=== PATIENT | male | born 1960 | race African-American/Black ===

== ENCOUNTER 2022-06-21 01:07 | Emergency (ER) | payer MEDICARE, MEDICAID, SELFPAY ==
[2022-06-21 01:24] VITALS: BP 118/61; PULSE 86; RESP 16; TEMP 36.7; O2SAT 97; BMI 31.1
--- OUTSIDE RECORDS SUMMARY | 2022-06-21 01:38 | XMS_ITS | Continuity of Care Document ---
:1960 Author Organization [facility] nter Address [address] [place] [address]- Care Team Providers Name Role Phone Tip Martinez MD Primary Care Physician [facility] [facility] [place](s): 10/28/20 - 12/03/[address] [address] Attending Physician: Wicho LANE ([place]) , Joe Lima Admitting Physician: Wicho LANE ([place]) , Joe Lima Referring Physician: Wicho LANE ([place]) , Joe Lima Allergies, Adverse Reactions, Alerts Substance Reaction Severity Status NKA Active Medications Aspirin = 325 mg, By Mouth, Daily, 0 Refills, Maintenance, 07/17/13 16:32:48 Start Date: 07/17/13 Status: Orderedfluoxetine 20 mg oral capsule 1 capsule = 20 mg, By Mouth, Daily, # 30 capsule, 0 Refills, Maintenance, 07/19/13 11:02:25, Capsule Start Date: 07/19/13 Status: OrderedLantus Inj = 50 units, Subcutaneous Infusion, Daily, 0 Refills, Maintenance, 01/01/19 3:03:43 EDT Start Date: 01/01/19 Status: OrderedMethadone = 45 mg, By Mouth, Daily, 0 Refills, Maintenance, 01/01/19 15:40:12 EDT, Partial fill upon patient request Start Date: 01/01/19 Status: OrderedMetoprolol XL Tablet 100 mg, By Mouth, Daily, Maintenance, 07/17/13 16:31:44 Start Date: 07/17/13 Status: OrderedOne Touch Ultra 2 Glucose Meter See Instructions, # 1 each, Maintenance, use as directed for Type 2 Diabetes Mellitus. Dx:250.00. Test 1x daily or as directed., 10/18/13 14:07:36, Compound Start Date: 10/18/13 Stop Date: 11/17/13 Status: OrderedOne Touch Ultra Test Strips See Instructions, # 200 each, Refills 5, Tot. Refills 5, Maintenance, use as directed for Type 2 Diabetes Mellitus controlled. DX: 250.00. Test 1x daily PRN, 10/18/13 14:43:27, Compound Start Date: 10/18/13 Stop Date: 04/16/14 Status: OrderedOne Touch UltraSoft Lancets See Instructions, # 200 each, Refills 5, Tot. Refills 5, Maintenance, use as directed for Type 2 Diabetes Mellitus controlled Dx: 250.00. Test 1x daily PRN, 10/18/13 14:45:16, Compound Start Date: 10/18/13 Stop Date: 04/16/14 Status: OrderedSEROquel 100 mg oral tablet 100 mg, 1, tablet, By Mouth, 2 times a day, Refills 0, Maintenance, 01/01/19 3:02:51 EDT Start Date: 01/01/19 Status: Orderedtrazodone 50 mg oral tablet 1 tablet = 50 mg, By Mouth, Daily at bedtime, PRN Sleep, may repeat x 1 after one hour, # 30 tablet,0 Refills, Maintenance, 07/19/13 11:02:43, Tablet Start Date: 07/19/13 Status: Ordered
--- NOTE | 2022-06-21 02:00 | ED.EAR ---
HPI - Ear Problem General Chief complaint: Ear Problems Stated complaint: L Ear Pain Time Seen by Provider: 06/21/22 01:59 Source: patient Mode of arrival: ambulatory Limitations: no limitations History of Present Illness HPI Narrative: 59-year-old male who presents emergency department for evaluation of left ear pain. He states the pain came on gradually this afternoon at around 14:00 and got progressively worse. The patient states he has had a cold for the past 2 days with symptoms including sore throat and a nonproductive cough. He denied fever or chills. He states that the pain increased in intensity to the point where it is 10/10 therefore came to emergency department for evaluation. Patient denies any decreased hearing. Denies any numbness or swelling of his face. Patient states he does not usually get your aches for your pain. Related Data Previous Rx's Medication Instructions Recorded acetaminophen 500 mg tablet 1,000 mg PO Q6H PRN fever or pain 06/21/22 (Tylenol Extra Strength) #20 tabs amoxicillin 500 mg capsule 1,000 mg PO BID 10 days #40 caps 06/21/22 ibuprofen 600 mg tablet 600 mg PO Q6H PRN pain #30 tabs 06/21/22 Allergies Allergy/AdvReac Type Severity Reaction Status Date / Time No Known Allergies Allergy Verified 06/21/22 01:26 Review of Systems Review of Systems: Yes all other systems are reviewed and are negative [facility] Past Medical History [facility] Narrative: Past medical history: Diabetes mellitus, hypertension, hyperlipidemia. Social history: The patient smokes 1 pack of cigarettes per day times many years. He states that he drinks alcohol once or twice a week. He states that he will drink 2-3 beers and 5 nips of alcohol. Social History Social History Advance Directives: No Advance Directives Information Provided: No Physical Exam Vital Signs: Vital Signs: Last Vital Signs Temp 98.0 F 06/21/22 01:24 Pulse 86 06/21/22 01:24 Resp 16 06/21/22 01:24 BP 118/61 06/21/22 01:24 Pulse Ox 97 06/21/22 01:24 O2 Del Method 06/21/22 01:24 BMI result Body Mass Index 31.1 Const: Other: Awake, alert, male patient, he appears to be in distress secondary to his your pain HEENT: Other: His head is normal cephalic atraumatic, pupils were equal round reactive light, sclera contact however normal, mouth revealed moist membranes. Patient's external ears appear to be normal, has no tenderness with palpation of his external auditory canal. His right tympanic membrane is normal his left tympanic membrane is erythematous with loss of landmarks. Neck: Other: Supple, no adenopathy Medical Decision Making Medical Decision Making MDM Narrative: 61-year-old male who presents emergency department for evaluation of left ear pain which began yesterday at 14:00 hours, the pain came on gradually and is now severe and is 10/10. He has had no decreased hearing. He did have cold-like symptoms including a cough and sore throat x2 days. Patient's vital signs were normal. Physical examination did reveal evidence for left otitis media. Patient will be treated with amoxicillin 1000 mg twice a day for 10 days, ibuprofen 600 mg every 6 hours as needed for pain and Tylenol 1000 mg every 6 hours as needed for pain Differential Diagnosis Otitis media, mastoiditis, otitis externa Prescription Management I considered prescription management with: Pain Medication and Antibiotic Chronic Conditions Patient?s care impacted by: Diabetes and Hypertension Discharge Plan Discharge Clinical Impression: Otitis media Qualifiers: Chronicity: acute Laterality: left Instructions: Ear Infection (ED) Additional Instructions: Your left ear is infected Take ibuprofen 6 mg pills, 1 pills every 6 hours as needed for pain or for. Take Tylenol (acetaminophen) 500 mg pills, 2 pills every 6 hours as needed for pain morphine. Take amoxicillin 500 mg pills, 2 pills(1000 mg) every 12 hours times 10 days Follow-up with your doctor in 2 days. Please return to the emergency department if your symptoms get worse or if you develop any symptoms that are concerning to you. Prescriptions: New amoxicillin 500 mg capsule 1,000 mg PO BID 10 Days Qty: 40 0RF acetaminophen [Tylenol Extra Strength] 500 mg tablet 1,000 mg PO Q6H PRN (Reason: fever or pain) Qty: 20 0RF ibuprofen 600 mg tablet 600 mg PO Q6H PRN (Reason: pain) Qty: 30 0RF
[2022-06-21] MEDS: Amoxicillin 500 MG CAPSULE 1000 MG PO (02:44)
[2022-06-21] MEDS: Ibuprofen 600 MG TABLET PO (02:44)
[2022-06-21] MEDS: Acetaminophen 325 MG TABLET 975 MG PO (02:44)
== END 2022-06-21 02:49 | disposition home or self-care (01) ==
PROVIDERS: Emergency Provider Emergency Medicine Emergency Medical Services
DX: H66.92 Otitis media, unspecified, left ear (principal); Z79.899 Other long term (current) drug therapy
CPT/HCPCS: 99283

== ENCOUNTER 2024-04-01 14:45 | Inpatient (IN) | payer MEDICARE, MEDICAID, SELFPAY ==
[2024-04-01] VITALS (9 sets, daily range): BP systolic 116–144; BP diastolic 70–86; PULSE 94–133; RESP 16–20; TEMP 36.1–36.8; O2SAT 93–99; BMI 29.9; BMI 31.3; BMI 30.2
--- NOTE | ~2024-04-01 | CT_ITS ---
EXAMINATION: CT OF THE THORAX, ABDOMEN, AND PELVIS, WITHOUT CONTRAST CLINICAL INFORMATION: Cough, vomiting, abnormal chest x-ray COMPARISON: None TECHNIQUE: Multiple axial images were obtained through the chest, abdomen, and pelvis without contrast. Images were evaluated on independent dedicated 3-D workstation and 3-D images were reconstructed with concurrent radiologist supervision and subsequently interpreted. This CT examination was performed using dose optimization techniques as appropriate, variously including the following: *Automated exposure control *Adjustment of mA and/or kV according to patient size (this includes techniques or standardized protocols for targeted exams where dose is matched to indication/reason for exam; i.e. extremities or head) *Use of iterative reconstruction technique DLP: 799 mGy-cm FINDINGS: THORAX: Thyroid Gland: Heterogeneous. Mediastinum: Large soft tissue mass within the anterior mediastinum arising from the inferior aspect of the right thyroid gland measuring 2.3 x 3.6 x 4.2 cm. No pathologic lymphadenopathy. Patulous esophagus with circumferential thickening of the mid to distal esophagus. Cardiovascular: Heart: Normal in size. Moderate coronary artery calcifications. No aortic aneursym. The great vessels of the thorax are normal in course. Airways: The trachea and central bronchi are normal. Lungs: Postsurgical changes of right upper lobectomy. Chain sutures are seen along the hilum and right middle lobe with associated scarring. No prior studies are available for comparison. Right middle lobe spiculated nodule 4 mm Pleura: No pleural effusion. No pneumothorax. ABDOMEN/PELVIS: Liver: Decreased attenuation of the hepatic parenchyma in keeping with hepatic steatosis. Gallbladder: Noninflamed. Biliary System: No intrahepatic or extrahepatic biliary dilation. Pancreas: Homogeneous in attenuation. Spleen: Normal in size. Genitourinary: Bilateral kidneys demonstrate symmetric enhancement. No perinephric fluid collection. No renal calculi. No hydroureteronephrosis. Adrenal Glands: Unremarkable. Reproductive: Prostate present. Gastrointestinal: The visualized alimentary tract is normal in course. Partial right colectomy. Tubular structure arising from the surgical site of the right partial colectomy. No evidence of obstruction. Peritoneum: No pneumoperitoneum. No intra-abdominal fluid collection. Vasculature: The abdominal aorta is normal in course and caliber. Lymph Nodes: No pathologically enlarged abdominal or pelvic lymph nodes. SOFT TISSUES/MUSCULOSKELETAL: Large Schmorl's node along the inferior endplate of T6 vertebral body with associated disc calcification. Degenerative changes at L5-S1. No acute fractures or suspicious osseous lesions. Subchondral cystic changes involving bilateral hips consistent with osteoarthritis. CT/CT abdomen pelvis wo IV con IMPRESSION: CHEST: Post surgical changes of right upper lobectomy with scarring along the resection margin. There is pleural-based scarring along the right middle lobe chain sutures, which appear smooth. However, prior studies are not available for comparison and recurrence cannot be excluded. In addition, there is a mildly spiculated 4 mm nodule in the right middle lobe. If there is concern for malignancy and recurrence, recommend PET/CT. Anterior mediastinal mass measuring 2.3 x 3.6 x 4.2 cm arising from the right thyroid gland. No mediastinal lymphadenopathy. ABDOMEN/PELVIS: Hepatic steatosis. Partial right colectomy with partially calcified tubular structure arising from the surgical site. This is of unclear etiology. Correlate with prior operative report. Fleischner guidelines were followed. Electronically signed by: Shahzad Shultz DO 04/01/2024 05:32 PM EDT
--- NOTE | ~2024-04-01 | XR_ITS ---
EXAMINATION: XR CHEST 2 VIEWS CLINICAL INFORMATION: cough, sob COMPARISON: No prior chest x-ray available in our system for comparison at the time of this dictation. TECHNIQUE: XR CHEST 2 VIEWS, 2 Views Lungs and Giovanna: Prominent giovanna bilaterally, subtle right perihilar opacity, cannot rule out underlying infiltrate or adenopathy. Pleura: Normal. Costophrenic angles are sharp. No pneumothorax. Heart: The heart is normal in size. Mediastinum: Widened upper mediastinum, thickened right paratracheal stripe although could be vascular cannot rule out adenopathy.. Bones: Skeletal structures included are normal for patient's age. XR/XR chest 2V IMPRESSION: 1. Prominent giovanna bilaterally, subtle right perihilar opacity, cannot rule out underlying infiltrate , pathology or adenopathy. 2. Widened right paratracheal stripe, thickened right paratracheal stripe could be vascular cannot rule out adenopathy. 3. Recommend correlation with other studies might have been present in other institution otherwise would recommend follow-up CT scan. Electronically signed by: Ashley Valdivia MD 04/01/2024 04:11 PM EDT
--- NOTE | 2024-04-01 14:48 | ED_ITS ---
HPI - Nausea/Vomiting/Diarrhea General Chief complaint: Abdominal Pain Stated complaint: vomiting Time Seen by Provider: 04/01/24 16:01 Source: patient, RN notes reviewed and old records reviewed Mode of arrival: ambulatory Limitations: no limitations History of Present Illness ED Provider: Malu SELF Narrative: 63-year-old male past medical history significant for diabetes, chronic kidney disease, hypertension presents for evaluation abdominal pain and vomiting. Patient reports he has been vomiting for the last 4 days and unable to tolerate any p.o. intake. He reports that his entire abdomen is painful and there is no specific area that is more painful than the rest. His abdomen does not feel distended His pain is a 7/10, constant. He reports a history of a partial colon resection due to a complicated polyp found during a routine colonoscopy He does not have an ostomy He reports that he has been coughing, denies any fevers, chills, shortness of breath Denies any recent travel or sick contacts Associated nausea: Yes Related Data Previous Rx's ?Medication ?Instructions ?Recorded acetaminophen 500 mg tablet 1,000 mg (2 x 500 mg) PO Q6H PRN 06/21/22 (Tylenol Extra Strength) fever or pain #20 tabs amoxicillin 500 mg capsule 1,000 mg (2 x 500 mg) PO BID 10 06/21/22 days #40 caps ibuprofen 600 mg tablet 600 mg PO Q6H PRN pain #30 tabs 06/21/22 Allergies Allergy/AdvReac Type Severity Reaction Status Date / Time No Known Allergies Allergy Verified 04/01/24 14:54 Review of Systems 2 Constitutional: Constitutional: Denies body ache(s), Denies chills, Denies fever(s), Reports malaise and Reports weakness Eyes: Eyes: Denies blurry vision ENT: Denies sore throat Cardiovascular: Cardiovascular: Denies chest pain and Denies dyspnea Respiratory: Respiratory: Reports cough and Denies dyspnea Gastrointestinal: Gastrointestinal: Reports abdominal pain, Denies hematochezia, Reports nausea and Reports vomiting Musculoskeletal: Musculoskeletal: Denies back pain Integumentary/Breasts: Skin/Breast: Denies rash Neurologic: Reports weakness Psychiatric: Psychiatric: Denies anxiety PMFSH Social History Social History Alcohol intake: current Patient Tobacco Use Status: Current everyday Tobacco user Smoked in Last 30 Days: Yes Use of substances other than those prescribed or required for medical reasons: No Advance Directives: No Advance Directives Information Provided: No Do you have a plan to hurt others: No Plan Nutrition Risks: No Nutritional Risk Physical Exam 2 Vital Signs: Vital Signs: Last Vital Signs Temp 97 F 04/01/24 20:00 Pulse 104 H 04/01/24 20:00 Resp 16 04/01/24 20:00 BP 144/80 H 04/01/24 20:00 Pulse Ox 95 04/01/24 20:00 O2 Del Method Room Air 04/01/24 20:00 BMI result Body Mass Index 29.9 Const: General: healthy appearing, comfortable, no acute distress, alert and awake Nutritional Appearance: well nourished Orientation/consciousness: p atient oriented x3 HEENT: Head: Yes normocephalic and Yes atraumatic Eyes: Eyelids: Yes eyelids normal Conjunctivae: conjunctivae normal S clerae: sclerae normal Corneas: corneas normal Pupils: Equal, round and reactive pupils present EOM: EOMs intact bilaterally Neck: Neck: Yes full ROM Resp: Effort & Inspection: normal respiratory effort, able to speak in complete sentences, no audible wheezes and not labored Auscultation: clear to auscultation bilaterally Cardio: Rate: regular rate Rhythm: regular rhythm GI: Inspection: No distended and Yes scar Palpation (GI): Soft to palpation, not firm, Tenderness to palpation present (GI) in the LLQ, in the RLQ, in the LUQ and in the RUQ, no guarding and not rigid Skin: General skin exam: elasticity normal Neuro: General: patient oriented x3 Cranial nerves: Yes Equal, round and reactive pupils present and Yes Bilaterally intact EOM present Cognition (Neuro): normal cognition Course Course Course Narrative: This is a Rapid Medical Examination (RME) performed by Sydney Saldivar PA-C in triage. Full HPI, ROS, assessment and treatment plan per primary provider in the Main ED. 63 yo male here for N/V and central abdominal pain x4 days. also reports cough with shortness of breath. endorses etoh consumptions approx 3 days/ week, 4-5 nips per day. last consumed etoh 4 days ago. denies ilicit substance use. denies fever, chills, chest pain, palpitations. no known sick contacts. + patient tachy to 130's. Plan: labs, viral serology, cxr, ekg Reevaluation(s) Reevaluation #1: I spoke to Dr Chen who reviewed the case and initially recommended sodium bicarbonate in D5 normal saline however change recommendations to D5 normal saline bolus and then continue with fluids at 150 cc an hour as well as an insulin drip. He feels the patient may have euglycemic DKA related to Jardiance use. Time: 18:42 Reevaluation #2: Discussed with the ICU, Dr. Russell as well as the ICU in-house ABDIEL Garcia who evaluated the patient. He recommended insulin drip as well as D5 LR which was ordered. I placed a 2nd IV and the patient using ultrasound guidance. I placed a 2-1/2 inch 20 gauge left upper arm peripheral IV. There was good blood return and the line flushed well Time: 19:44 Medications Administered Generic Name Dose Route Start Last Admin Trade Name Freq PRN Reason Stop Dose Admin Heparin Sodium (Porcine) 5,000 unit 04/01/24 20:00 04/01/24 20:31 Heparin Sodium,Porcine 5,000 Unit/Ml Vial SUBCUT 5,000 unit Q12H TAI Administration Dextrose/Lactated Ringer's 1,000 mls @ 150 mls/hr 04/01/24 19:45 04/01/24 19:43 D5lr IVCONT 150 mls/hr .Q6H40M TAI Administration Insulin Human Regular 100 unit in 100 mls @ 8 mls/hr 04/01/24 19:45 04/01/24 20:20 Myxredlin IVCONT 8 unit/hr .[id number] TAI 8 mls/hr Administration Protocol 8 UNIT/HR Ondansetron HCl 4 mg 04/01/24 19:39 04/01/24 20:30 Ondansetron Hcl 4 Mg/2 Ml Vial IVPUSH 4 mg Q8H PRN Administration Nausea and Vomiting Discontinued Medications Generic Name Dose Route Start Last Admin Trade Name Freq PRN Reason Stop Dose Admin Hydromorphone HCl 1 mg 04/01/24 19:21 04/01/24 19:25 Hydromorphone Hcl 1 Mg/Ml Syringe IVPUSH 04/01/24 19:22 1 mg ONCE ONE Administration Protocol Sodium Chloride 1,000 mls @ 999 mls/hr 04/01/24 16:30 04/01/24 20:01 Ns IV 04/01/24 17:30 Infused .Q1H1M TAI Infusion Dextrose/Sodium Chloride 1,000 mls @ 125 mls/hr 04/01/24 18:45 04/01/24 19:36 D5ns IVCONT Infused .Q8H TAI Infusion Insulin Human Regular 8 unit 04/01/24 19:38 04/01/24 19:55 Insulin Regular, Human 100 Unit/Ml 10 Ml Vial IVPUSH 04/01/24 19:39 8 unit ONCE ONE Administration Morphine Sulfate 4 mg 04/01/24 16:17 04/01/24 16:26 Morphine Sulfate 4 Mg/Ml Cartridge IVPUSH 04/01/24 16:18 4 mg ONCE ONE Administration Protocol Ondansetron HCl 4 mg 04/01/24 16:17 04/01/24 16:26 Ondansetron Hcl 4 Mg/2 Ml Vial IVPUSH 04/01/24 16:18 4 mg ONCE ONE Administration Sodium Bicarbonate 50 meq 04/01/24 19:38 04/01/24 19:54 Sodium Bicarbonate 8.4% 50 Meq/50 Ml Syringe IVPUSH 04/01/24 19:39 50 meq ONCE ONE Administration Medical Decision Making Medical Decision Making [facility] Narrative: 63-year-old male with past medical history as documented above presents for evaluation of vomiting. He was tachycardic to 130, appears quite dry on exam. Will treat with IV fluids. His workup was significant for a bicarb of 7, a VBG was ordered which was a pH of 7.2. This may be related to starvation ketosis related to his significant vomiting and poor oral intake. His glucose is 200, does not appear to be DKA. Sodium, potassium within normal limits. There is no indication for sepsis at this time, the patient is afebrile, he has a mild leukocytosis of 11.2 which is likely related to vomiting. I did order blood cultures and lactic acid as well. The patient's blood pressure has been stable. We will get a CT scan of his abdomen as well as his chest given his abnormal chest x-ray. He denies excessive alcohol abuse Differential Diagnosis Differential Diagnoses: The differential diagnosis associated with the presentation includes Starvation ketosis Dehydration DKA Alcoholic ketoacidosis Sepsis SBO Admission/Observation Consideration of admission/observation: Escalation of care including admission/observation considered Lab Data [facility] Lab Attestation statement: I reviewed the patient's lab results. Mild leukocytosis to 11.2, likely reactive to vomiting. There was no anemia, normal platelet count. Electrolytes are significant for a CO2 of 7. Glucose of 2 or 3 Patient reports a history of chronic kidney disease, his creatinine is 2.0 unclear what his baseline is. 04/01/24 15:05 04/01/24 19:45 Labs: Lab Results 04/01/24 04/01/24 04/01/24 Range/Units 15:05 16:12 16:15 WBC 11.2 H (4.8-10.8) X10*3/uL RBC 4.81 (4.60-5.80) X10*6/uL Hgb 15.8 (14.0-18.0) g/dl Hct 45.4 (42.0-52.0) % MCV 94.4 (80.0-98.0) fL MCH 32.8 (27.0-33.0) pg MCHC 34.8 (31.0-36.0) g/dl RDW 13.8 (11.0-16.0) % Plt Count 224 (160-400) X10*3/uL MPV 9.6 (9.4-12.4) fL Immature Gran % (Auto) 0.4 (0.0-0.4) % Neut % (Auto) 83.3 H (45-73) % Lymph % (Auto) 10.0 L (20-40) % [place] % (Auto) 6.0 (2-11) % Eos % (Auto) 0.0 (0-4) % Baso % (Auto) 0.3 (0-2) % Lymph # (Auto) 1.1 L (1.2-4.9) X10*3/uL [place] # (Auto) 0.7 (0.1-1.2) X10*3/uL Eos # (Auto) 0.0 (0.0-0.4) X10*3/uL Baso # (Auto) 0.0 (0.0-0.2) X10*3/uL Abs Immat Gran (auto) 0.04 H (0.00-0.03) X10*3/uL Absolute Neuts (auto) 9.3 H (2.0-8.3) x10*3/uL Absolute Nucleated RBC 0.000 (0.0-0.012) X10*3/uL Nucleated RBC % (auto) 0.0 (0.0-0.2) /100WBC VBG pH 7.20 L* (7.32-7.43) VBG pCO2 18 mmHg VBG pO2 77 mmHg VBG HCO3 7 L (22-26) mmol/L VBG O2 Saturation 93.0 % VBG Base Excess -18.1 mmol/L Sodium 136 (135-145) mmol/L Potassium 4.4 (3.3-5.1) mmol/L Chloride 101 (96-108) mmol/L Carbon Dioxide 7 L* (22-29) mmol/L Anion Gap 32 H (12-20) BUN 14 (9-16) mg/dL Creatinine 2.00 H (0.5-1.4) mg/dL Estim Creat Clear Calc 40.4 Estimated GFR 34 POC Glucose (60-115) mg/dL Random Glucose 203 H (60-115) mg/dL Lactic Acid 2.0 (0.5-2.0) mmol/L Calcium 10.7 H (8.4-10.2) mg/dL Magnesium 2.0 (1.6-2.6) mg/dL Total Bilirubin 0.4 (0.0-1.0) mg/dL AST 25 (5-37) U/L ALT 26 (0-40) U/L Alkaline Phosphatase 97 (39-117) U/L Total Protein 7.6 (6.5-8.0) g/dL Albumin 4.6 (3.5-5.0) g/dL Lipase 18 (8-78) U/L Beta-Hydroxybutyrate 12.53 H (0.02-0.27) mmol/L Urine Color Urine Appearance Urine pH (5.0-9.0) Ur Specific [place] (1.005-1.025) Urine Protein (Neg-Trace) mg/dL Urine Glucose (UA) (Negative) mg/dL Urine Ketones (Negative) mg/dL Urine Blood (Negative) Urine Nitrite (Negative) Ur Leukocyte Esterase (Negative) Urine RBC (0-2) /HPF Urine WBC (0-5) /HPF Ur Squamous Epith Cells (0-2) /HPF Urine Bacteria (None Seen) Hyaline Casts (0-2) /LPF Urine Opiates Screen (Not Detect) Ur Buprenorphine Scrn (Not Detect) ng/mL Ur Oxycodone Screen (Not Detect) ng/mL Urine Methadone Screen (Not Detect) ng/mL Urine Fentanyl Screen (Not Detect) Ur Barbiturates Screen (Not Detect) Ur Phencyclidine Scrn (Not Detect) Ur Amphetamines Screen (Not Detect) U Benzodiazepines Scrn (Not Detect) Urine Cocaine Screen (Not Detect) U Marijuana (THC) Screen (Not Detect) Ethyl Alcohol < 10 mg/dL Influenza Type A (PCR) NEGATIVE (Negative) Influenza Type B (PCR) NEGATIVE (Negative) RSV RNA Qual (PCR) NEGATIVE (Negative) SARS-CoV-2 RNA (RT-PCR) NEGATIVE (Negative) 04/01/24 04/01/24 Range/Units 18:49 19:30 WBC (4.8-10.8) X10*3/uL RBC (4.60-5.80) X10*6/uL Hgb (14.0-18.0) g/dl Hct (42.0-52.0) % MCV (80.0-98.0) fL MCH (27.0-33.0) pg MCHC (31.0-36.0) g/dl RDW (11.0-16.0) % Plt Count (160-400) X10*3/uL MPV (9.4-12.4) fL Immature Gran % (Auto) (0.0-0.4) % Neut % (Auto) (45-73) % Lymph % (Auto) (20-40) % [place] % (Auto) (2-11) % Eos % (Auto) (0-4) % Baso % (Auto) (0-2) % Lymph # (Auto) (1.2-4.9) X10*3/uL [place] # (Auto) (0.1-1.2) X10*3/uL Eos # (Auto) (0.0-0.4) X10*3/uL Baso # (Auto) (0.0-0.2) X10*3/uL Abs Immat Gran (auto) (0.00-0.03) X10*3/uL Absolute Neuts (auto) (2.0-8.3) x10*3/uL Absolute Nucleated RBC (0.0-0.012) X10*3/uL Nucleated RBC % (auto) (0.0-0.2) /100WBC VBG pH (7.32-7.43) VBG pCO2 mmHg VBG pO2 mmHg VBG HCO3 (22-26) mmol/L VBG O2 Saturation % VBG Base Excess mmol/L Sodium (135-145) mmol/L Potassium (3.3-5.1) mmol/L Chloride (96-108) mmol/L Carbon Dioxide (22-29) mmol/L Anion Gap (12-20) BUN (9-16) mg/dL Creatinine (0.5-1.4) mg/dL Estim Creat Clear Calc Estimated GFR POC Glucose 183 H (60-115) mg/dL Random Glucose (60-115) mg/dL Lactic Acid (0.5-2.0) mmol/L Calcium (8.4-10.2) mg/dL Magnesium (1.6-2.6) mg/dL Total Bilirubin (0.0-1.0) mg/dL AST (5-37) U/L ALT (0-40) U/L Alkaline Phosphatase (39-117) U/L Total Protein (6.5-8.0) g/dL Albumin (3.5-5.0) g/dL Lipase (8-78) U/L Beta-Hydroxybutyrate (0.02-0.27) mmol/L Urine Color Yellow Urine Appearance Clear Urine pH 5.0 (5.0-9.0) Ur Specific [place] 1.020 (1.005-1.025) Urine Protein 30 (1+) H (Neg-Trace) mg/dL Urine Glucose (UA) >=1000 H (Negative) mg/dL Urine Ketones >=160 (Negative) mg/dL Urine Blood Negative (Negative) Urine Nitrite Negative (Negative) Ur Leukocyte Esterase Negative (Negative) Urine RBC 0-2 (0-2) /HPF Urine WBC 0-5 (0-5) /HPF Ur Squamous Epith Cells 0-2 (0-2) /HPF Urine Bacteria None Seen (None Seen) Hyaline Casts 0-2 (0-2) /LPF Urine Opiates Screen POSITIVE H (Not Detect) Ur Buprenorphine Scrn Not Detected (Not Detect) ng/mL Ur Oxycodone Screen Not Detected (Not Detect) ng/mL Urine Methadone Screen Not Detected (Not Detect) ng/mL Urine Fentanyl Screen Not Detected (Not Detect) Ur Barbiturates Screen Not Detected (Not Detect) Ur Phencyclidine Scrn Not Detected (Not Detect) Ur Amphetamines Screen Not Detected (Not Detect) U Benzodiazepines Scrn Not Detected (Not Detect) Urine Cocaine Screen Not Detected (Not Detect) U Marijuana (THC) Screen Not Detected (Not Detect) Ethyl Alcohol mg/dL Influenza Type A (PCR) (Negative) Influenza Type B (PCR) (Negative) RSV RNA Qual (PCR) (Negative) SARS-CoV-2 RNA (RT-PCR) (Negative) Critical Care Time Critical Care Time Critical Care Time: Yes Total Critical Care Time: 45 Attestation: 63-year-old male presents for evaluation of nausea and vomiting. He was found to be in DKA with a pH of 7.20 and a bicarb of 7. The patient was given IV hydration, insulin drip and ultimately required ICU level admission. Discharge Plan Discharge Clinical Impression: Metabolic acidosis, Acute dehydration Patient Disposition: Admitted As Inpatient Interventions: Admission Worksheet (ED) Last Done: 04/01/24 20:19 Discharge Date/Time: 04/01/24 20:19
--- NOTE | 2024-04-01 14:51 | ECG_ITS ---
Test Reason : TACHYCARDIC/SOB Blood Pressure : / mmHG Vent. Rate : 124 BPM Atrial Rate : 124 BPM P-R Int : 122 ms QRS Dur : 078 ms QT Int : 324 ms P-R-T Axes : 058 020 066 degrees QTc Int : 465 ms Sinus tachycardia Nonspecific ST abnormality Abnormal ECG No previous ECGs available Referred By: Katina Saldivar Electronically Signed By:JOSÉ TSE MD
[2024-04-01 15:13] LABS: MANUAL DIFF FLAG NO
[2024-04-01 15:17] LABS: Basophils Percent Auto 0.3 % (0-2); Hematocrit 45.4 % (42.0-52.0); Hemoglobin 15.8 g/dl (14.0-18.0); Imm Gran Abs Auto 0.04 X10*3/uL (0.00-0.03); Imm Gran Pct Auto 0.4 % (0.0-0.4); Lymphocytes Absolute Auto 1.1 X10*3/uL (1.2-4.9); Mean Corpuscular HGB Conc 34.8 g/dl (31.0-36.0); Mean Corpuscular Hemoglobin 32.8 pg (27.0-33.0); Mean Corpuscular Volume 94.4 fL (80.0-98.0); Mean Platelet Volume 9.6 fL (9.4-12.4); Monocytes Absolute Auto 0.7 X10*3/uL (0.1-1.2); Neutrophils Absolute Auto 9.3 x10*3/uL (2.0-8.3); Neutrophils Percent Auto 83.3 % (45-73); Platelet Count 224 X10*3/uL (160-400); Red Blood Count 4.81 X10*6/uL (4.60-5.80); Red Cell Distribution Width 13.8 % (11.0-16.0); White Blood Count 11.2 X10*3/uL (4.8-10.8)
[2024-04-01 15:29] LABS: Ethanol < 10 mg/dL
[2024-04-01 15:51] LABS: Influenza A PCR NEGATIVE (Negative); Influenza B PCR NEGATIVE (Negative); Resp Syncy Virus RNA Qual PCR NEGATIVE (Negative); SARS COV2 PCR INHOUSE NEGATIVE (Negative)
[2024-04-01 15:58] LABS: Alanine Aminotransferase 26 U/L (0-40); Albumin Level 4.6 g/dL (3.5-5.0); Alkaline Phosphatase 97 U/L (39-117); Anion Gap 32 (12-20); Aspartate Amino Transferase 25 U/L (5-37); Bilirubin Total 0.4 mg/dL (0.0-1.0); Blood Urea Nitrogen 14 mg/dL (9-16); Calcium 10.7 mg/dL (8.4-10.2); Carbon Dioxide 7 mmol/L (22-29); Chloride 101 mmol/L (96-108); Creatinine Clr Calc Pharmacy 40.4; Estimated Glomerular Filt Rate 34; Glucose Random 203 mg/dL (60-115); Lipase 18 U/L (8-78); Potassium 4.4 mmol/L (3.3-5.1); Sodium 136 mmol/L (135-145); Total Protein 7.6 g/dL (6.5-8.0)
[2024-04-01 16:21] LABS: Venous Blood Gas Refer to POC result
[2024-04-01 16:22] LABS: VBG Base Excess -18.1 mmol/L; VBG HCO3 7 mmol/L (22-26); VBG pCO2 18 mmHg; VBG pO2 77 mmHg
[2024-04-01] MEDS: 0.9 % Sodium Chloride 1,000 ML 999 ML IV (16:26)
[2024-04-01] MEDS: Morphine Sulfate 4 MG/ML CARTRIDGE IVPUSH (16:26)
[2024-04-01] MEDS: ondansetron HCL 4 MG/2 ML VIAL IVPUSH ×2 (16:26→20:30)
[2024-04-01 17:50] LABS: Beta-Hydroxybutyrate 12.53 mmol/L (0.02-0.27)
[2024-04-01] MEDS: Dextrose 5 % and 0.9 % NaCl 1,000 ML 125 ML IVCONT (18:55)
[2024-04-01 18:56] LABS: Appearance Urine Clear; Color Urine Yellow; Glucose Urine UA >=1000 mg/dL (Negative); Leukocyte Esterase Urine Negative (Negative); Nitrite Urine Negative (Negative); UMIC TRIGGER UACC YES; Urine Blood Negative (Negative); Urine Ketones >=160 mg/dL (Negative); Urine Protein 30 (1+) mg/dL (Neg-Trace)
[2024-04-01 19:05] LABS: Amphetamine Screen Urine Not Detected (Not Detect); Barbiturates, Urine Not Detected (Not Detect); Benzodiazepines Screen Urine Not Detected (Not Detect); Buprenorphine Scr Not Detected (Not Detect); Cannabinoid Screen Urine Not Detected (Not Detect); Cocaine Screen Urine Not Detected (Not Detect); Fentanyl, urine Not Detected (Not Detect); Methadone Screen, Urine Not Detected (Not Detect); Opiate Screen Urine POSITIVE (Not Detect); Oxycodone Screen Urine Not Detected (Not Detect); Phencyclidine Screen Urine Not Detected (Not Detect)
[2024-04-01 19:08] LABS: Bacteria Urine None Seen (None Seen); Hyaline Casts Urine 0-2 /LPF (0-2); RBC Urine 0-2 /HPF (0-2); Squamous Epithelial Cell Urine 0-2 /HPF (0-2); WBC Urine 0-5 /HPF (0-5)
[2024-04-01] MEDS: HYDROmorphone HCl 1 MG/ML SYRINGE IVPUSH (19:25)
[2024-04-01 19:33] LABS: Glucose, Whole Blood 183 mg/dL (60-115)
--- NOTE | 2024-04-01 19:34 | PC.NURSE ---
this rn assumed care of pt, pt noted to have insulin drip ordered, attempted IV placement, unable to obtain. Gonzalez MEADOWS at bedside placing ultrasound guided IV. pt medicated per aug for 10/10 body pain.
[2024-04-01] MEDS: Dextrose 5 % and Lactated Ring 1,000 ML 150 ML IVCONT (19:43)
--- NOTE | 2024-04-01 19:44 | P.HPCC_ITS ---
History of Present Illness Date of Service: 04/01/24 <ABDIEL Rossi - Last Filed: 04/02/24 03:28> Attending physician on admission: Kevin Damon <ABDIEL Rossi - Last Filed: 04/02/24 03:28> Chief Complaint: DKA <ABDIEL Rossi - Last Filed: 04/02/24 03:28> HPI: ?63-year-old male with underlying history of coronary artery disease status post stent 25 years ago, diabetes (for which he is on Lantus, NovoLog sliding scale and Jardiance), chronic kidney disease, hypertension, partial colectomy post complicated colonoscopy, smoker; who presented to the ER with complaints of nausea, vomiting for the past 4 days. ?Patient denies diarrhea, he has not had a bowel movement in almost 1 week. ?Patient complained of abdominal discomfort rated 7/10 in an intermittent manner, dull, at times becoming constant with the above associated symptoms in addition to some chills but no actual fever, some cough without any sputum production, no shortness of breath; denies chest pain, arm pr jaw pain. Patient is normotensive, his workup reveal a white count of 11.2, H and H of 15.8 and 45.4 respectively, platelets 224. Venous blood gas pH 7.2, pCO2 18, PO2 77, bicarb 7.? Sodium 136, potassium 4.4, chloride 101, carbon dioxide 7, anion gap 32, BUN 14, creatinine 2.0, random glucose 203, calcium 10.7, beta hydroxybutyrate acid 12.5.? Patient was given IV fluids and morphine but he was not given insulin. ?Urine tox screen was positive for opioids because he had morphine in the ER otherwise negative and alcohol level was not detectable.? His chest x-ray showed prominent gila bilaterally with a saddle right perihilar opacity and widened right paratracheal stripe.? Follow-up CT showed incidental right thyroid gland associated mass in the anterior mediastinum as well as a 4 mm spiculated right middle lobe nodule. Given the degree of acidosis and uncertainty of whether or not the patient was in DKA we are consulted to see the patient, after evaluating the patient, it is eminent that he is in DKA, the patient will be admitted to the ICU.? I asked the ER kindly to start him on insulin and made recommendations on dosages. <ABDIEL Rossi - Last Filed: 04/02/24 03:28> Review of Systems 2 Review of Systems: Review of systems: As above, otherwise the patient denies any prior history of strokes, cold intolerance, migraine headaches, head trauma, no eyes, ears or nose problems, no problems swallowing or with phonation, no thyroid disease, denies sputum production, pneumonia, bronchitis, COPD or emphysema, diarrhea, abdominal surgeries, melena, hematochezia, hematemesis, hematuria, kidney stones, liver problems, immunocompromise state of any kind, no history of DVT or PE, leg edema, fractures or extremity surgeries all other review of systems were reviewed and they were all negative. <ABDIEL Rossi - Last Filed: 04/02/24 03:28> [facility] Past Medical History Medical History: Medical History (Updated 04/02/24 @ 00:59 by Marina Riggins, RN) Chronic kidney disease (CKD) Hypertension Coronary artery disease Diabetes <ABDIEL Rossi - Last Filed: 04/02/24 03:28> Surgical History Surgical History: Surgical History (Updated 04/02/24 @ 00:59 by Marina Riggins, RN) History of partial colectomy <ABDIEL Rossi - Last Filed: 04/02/24 03:28> Social History Social History: Social History Household Members: None Housing: House Do you presently have visiting nurse or other home services: No Alcohol intake: current Patient Tobacco Use Status: Current everyday Tobacco user Tobacco use type: Cigarette Cigarettes Per Day: 10 Smoked in Last 30 Days: Yes Patient Interested in Nicotine Replacement: No Use of substances other than those prescribed or required for medical reasons: No Currently Displaying Signs/Symptoms of Drug Intoxication Withdrawal: No Have you been hit, kicked, punched, or otherwise hurt by someone within the past year? If so, by whom?: No Is there a partner from a previous relationship who is making you feel unsafe now?: No Are you made to feel afraid or neglected: No Advance Directives: No Advance Directives Information Provided: No Do you have a plan to hurt others: No Plan Recently lost weight without trying: No Nutrition Risks: No Nutritional Risk Poor oral hygiene: No <ABDIEL Rossi Last Filed: 04/02/24 03:28> Meds Allergies/Adverse reactions: Allergies Allergy/AdvReac Type Severity Reaction Status Date / Time No Known Allergies Allergy Verified 04/01/24 14:54 <ABDIEL Rossi - Last Filed: 04/02/24 03:28> Active Medications: Current Medications Acetaminophen (Acetaminophen 325 Mg Tablet) 650 mg PO Q6H PRN PRN Reason: Pain, Moderate(Pain Scale 4-6) Heparin Sodium (Porcine) (Heparin Sodium,Porcine 5,000 Unit/Ml Vial) 5,000 unit SUBCUT Q12H TAI Dextrose/Sodium Chloride (D5ns) 1,000 mls @ 125 mls/hr IVCONT .Q8H TAI Last Infusion: 04/01/24 19:36 Dose: Infused Dextrose/Lactated Ringer's (D5lr) 1,000 mls @ 150 mls/hr IVCONT .Q6H40M [facility] Last Admin: 04/01/24 19:43 Dose: 150 mls/hr Insulin Human Regular (Myxredlin) 100 unit in 100 mls @ 8 mls/hr IVCONT .[id number] TAI; Protocol Dextrose (D10) 250 mls @ 750 mls/hr IV Q30M PRN PRN Reason: BG <70 Omeprazole (Omeprazole 40 Mg Capsule.Dr) 40 mg PO DAILY@0630 TAI Ondansetron HCl (Ondansetron Hcl 4 Mg/2 Ml Vial) 4 mg IVPUSH Q8H PRN PRN Reason: Nausea and Vomiting <ABDIEL Rossi - Last Filed: 04/02/24 03:28> Home medications: Home Medications ?Medication ?Instructions ?Recorded ?Confirmed ?Last Taken ?Type amlodipine 5 mg tablet 5 mg PO DAILY 04/02/24 04/02/24 Unknown History ascorbic acid (vitamin C) 250 mg 250 mg PO DAILY 04/02/24 04/02/24 Unknown History tablet aspirin 81 mg tablet,delayed 81 mg PO DAILY 04/02/24 04/02/24 Unknown History release atorvastatin 80 mg tablet 80 mg PO DAILY 04/02/24 04/02/24 Unknown History cholecalciferol (vitamin D3) 50 50 mcg PO DAILY 04/02/24 04/02/24 Unknown History mcg (2,000 unit) tablet (Vitamin D3) empagliflozin 25 mg tablet 25 mg PO DAILY 04/02/24 04/02/24 Unknown History (Jardiance) ezetimibe 10 mg tablet 10 mg PO DAILY 04/02/24 04/02/24 Unknown History famotidine 20 mg tablet 20 mg PO BID 04/02/24 04/02/24 Unknown History fenofibrate nanocrystallized 48 mg 48 mg PO DAILY 04/02/24 04/02/24 Unknown History tablet insulin aspart U-100 100 unit/mL 4 - 7 unit subcut TIDWM 04/02/24 04/02/24 Unknown History (3 mL) subcutaneous pen insulin glargine-yfgn 100 unit/mL 35 unit subcut DAILY@0900 04/02/24 04/02/24 Unknown History (3 mL) subcutaneous pen (Semglee (insulin glargine-yfgn) Pen) metoprolol tartrate 25 mg tablet 25 mg PO BID 04/02/24 04/02/24 Unknown History multivitamin with minerals 1 tab PO DAILY 04/02/24 04/02/24 Unknown History quetiapine 400 mg tablet 400 mg PO BEDTIME 04/02/24 04/02/24 Unknown History quetiapine 50 mg tablet 50 mg PO BEDTIME 04/02/24 04/02/24 Unknown History <ABDIEL Rossi - Last Filed: 04/02/24 03:28> Physical Exam 2 Vital Signs: Vital Signs: Last Vital Signs Temp 97.8 F 04/01/24 18:29 Pulse 112 H 04/01/24 18:29 Resp 18 04/01/24 19:25 BP 137/70 04/01/24 18:29 Pulse Ox 98 04/01/24 18:29 O2 Del Method Room Air 04/01/24 18:29 BMI result Body Mass Index 29.9 <ABDIEL Rossi - Last Filed: 04/02/24 03:28> VS: ?135/75, 118, 18, 97% on room air. General:? Alert oriented x3 no acute distress.? Speaking full sentences.? Speech is well articulated, thought process is coherent.? Following all commands. Skin: dry, scaly, Intact, no lesions, edema, erythema, clubbing or cyanosis.? No ulcers. HEENT:? Head is normocephalic, atraumatic, pupils equal round reactive to light accommodation bilaterally.? Extraocular movements appear intact.? Buccal mucosa is dry, Neck is supple without lymphadenopathy. Cardiac:? Tachycardic 116 beats per minute. No murmurs, rubs, gallops. Pulmonary:? Clear to auscultation, no wheezes, rales or rhonchi. Abdomen:? Protuberant, positive bowel sounds in all 4 quadrants.? Soft, nontender, no rebound or guarding.? Musculoskeletal:? Moving all 4 extremities upon request a major joints, there is no crepitus or tenderness.? The strength is 5/5 bilaterally and throughout all 4 extremities.? There is no leg edema , no calf tenderness , no leg asymmetry.? Gait not assessed at this point. Neurologic:? As above, No focal deficits noted. Vascular:? 2+ pulses upper and lower extremities distally. <ABDIEL Rossi - Last Filed: 04/02/24 03:28> Results Labs CBC and Chem 7: 04/02/24 05:02 04/02/24 08:58 <ABDIEL Rossi - Last Filed: 04/02/24 03:28> Labs: Laboratory Results - last 24 hr 04/01/24 04/01/24 04/01/24 15:05 16:12 16:15 MCV 94.4 MCH 32.8 MCHC 34.8 RDW 13.8 Plt Count 224 MPV 9.6 Immature Gran % (Auto) 0.4 Neut % (Auto) 83.3 H Lymph % (Auto) 10.0 L Faulk % (Auto) 6.0 Eos % (Auto) 0.0 Baso % (Auto) 0.3 Lymph # (Auto) 1.1 L Faulk # (Auto) 0.7 Eos # (Auto) 0.0 Baso # (Auto) 0.0 Abs Immat Gran (auto) 0.04 H Absolute Neuts (auto) 9.3 H Absolute Nucleated RBC 0.000 Nucleated RBC % (auto) 0.0 VBG pH 7.20 L* VBG pCO2 18 VBG pO2 77 VBG HCO3 7 L VBG O2 Saturation 93.0 VBG Base Excess -18.1 Anion Gap 32 H Estim Creat Clear Calc 40.4 Estimated GFR 34 POC Glucose Random Glucose 203 H Lactic Acid 2.0 Calcium 10.7 H Magnesium 2.0 Total Bilirubin 0.4 AST 25 ALT 26 Alkaline Phosphatase 97 Total Protein 7.6 Albumin 4.6 Lipase 18 Beta-Hydroxybutyrate 12.53 H Urine Color Urine Appearance Urine pH Ur Specific [place] Urine Protein Urine Glucose (UA) Urine Ketones Urine Blood Urine Nitrite Ur Leukocyte Esterase Urine RBC Urine WBC Ur Squamous Epith Cells Urine Bacteria Hyaline Casts Urine Opiates Screen Ur Buprenorphine Scrn Ur Oxycodone Screen Urine Methadone Screen Urine Fentanyl Screen Ur Barbiturates Screen Ur Phencyclidine Scrn Ur Amphetamines Screen U Benzodiazepines Scrn Urine Cocaine Screen U Marijuana (THC) Screen Ethyl Alcohol < 10 Influenza Type A (PCR) NEGATIVE Influenza Type B (PCR) NEGATIVE RSV RNA Qual (PCR) NEGATIVE SARS-CoV-2 RNA (RT-PCR) NEGATIVE 04/01/24 04/01/24 18:49 19:30 MCV MCH MCHC RDW Plt Count MPV Immature Gran % (Auto) Neut % (Auto) Lymph % (Auto) Faulk % (Auto) Eos % (Auto) Baso % (Auto) Lymph # (Auto) Faulk # (Auto) Eos # (Auto) Baso # (Auto) Abs Immat Gran (auto) Absolute Neuts (auto) Absolute Nucleated RBC Nucleated RBC % (auto) VBG pH VBG pCO2 VBG pO2 VBG HCO3 VBG O2 Saturation VBG Base Excess Anion Gap Estim Creat Clear Calc Estimated GFR POC Glucose 183 H Random Glucose Lactic Acid Calcium Magnesium Total Bilirubin AST ALT Alkaline Phosphatase Total Protein Albumin Lipase Beta-Hydroxybutyrate Urine Color Yellow Urine Appearance Clear Urine pH 5.0 Ur Specific [place] 1.020 Urine Protein 30 (1+) H Urine Glucose (UA) >=1000 H Urine Ketones >=160 Urine Blood Negative Urine Nitrite Negative Ur Leukocyte Esterase Negative Urine RBC 0-2 Urine WBC 0-5 Ur Squamous Epith Cells 0-2 Urine Bacteria None Seen Hyaline Casts 0-2 Urine Opiates Screen POSITIVE H Ur Buprenorphine Scrn Not Detected Ur Oxycodone Screen Not Detected Urine Methadone Screen Not Detected Urine Fentanyl Screen Not Detected Ur Barbiturates Screen Not Detected Ur Phencyclidine Scrn Not Detected Ur Amphetamines Screen Not Detected U Benzodiazepines Scrn Not Detected Urine Cocaine Screen Not Detected U Marijuana (THC) Screen Not Detected Ethyl Alcohol Influenza Type A (PCR) Influenza Type B (PCR) RSV RNA Qual (PCR) SARS-CoV-2 RNA (RT-PCR) <ABDIEL Rossi - Last Filed: 04/02/24 03:28> ECG Attestation: I personally reviewed and interpreted this ECG as follows: (EKG: To my view this sinus tachycardia 124 beats per minute. There is no ST elevations, there is some minor ST depressions in the anterior leads. QT 324. No comparison available.) <ABDIEL Rossi - Last Filed: 04/02/24 03:28> ECG interpretation date: 04/01/24 <ABDIEL Rossi - Last Filed: 04/02/24 03:28> ECG interpretation time: 21:00 <ABDIEL Rossi - Last Filed: 04/02/24 03:28> Prior ECG tracings: not available for review <ABDIEL Rossi - Last Filed: 04/02/24 03:28> Imaging Radiologist's Impressions: Impressions Chest X-Ray 04/01/24 14:51 IMPRESSION: 1. Prominent gila bilaterally, subtle right perihilar opacity, cannot rule out underlying infiltrate , pathology or adenopathy. 2. Widened right paratracheal stripe, thickened right paratracheal stripe could be vascular cannot rule out adenopathy. 3. Recommend correlation with other studies might have been present in other institution otherwise would recommend follow-up CT scan. Electronically signed by: Ashley Valdivia MD 04/01/2024 04:11 PM EDT RP Abdomen/Pelvis CT 04/01/24 16:41 IMPRESSION: CHEST: Post surgical changes of right upper lobectomy with scarring along the resection margin. There is pleural-based scarring along the right middle lobe chain sutures, which appear smooth. However, prior studies are not available for comparison and recurrence cannot be excluded. In addition, there is a mildly spiculated 4 mm nodule in the right middle lobe. If there is concern for malignancy and recurrence, recommend PET/CT. Anterior mediastinal mass measuring 2.3 x 3.6 x 4.2 cm arising from the right thyroid gland. No mediastinal lymphadenopathy. ABDOMEN/PELVIS: Hepatic steatosis. Partial right colectomy with partially calcified tubular structure arising from the surgical site. This is of unclear etiology. Correlate with prior operative report. Fleischner guidelines were followed. Electronically signed by: Shahzad Shultz DO 04/01/2024 05:32 PM EDT RP Chest CT 04/01/24 16:41 IMPRESSION: CHEST: Post surgical changes of right upper lobectomy with scarring along the resection margin. There is pleural-based scarring along the right middle lobe chain sutures, which appear smooth. However, prior studies are not available for comparison and recurrence cannot be excluded. In addition, there is a mildly spiculated 4 mm nodule in the right middle lobe. If there is concern for malignancy and recurrence, recommend PET/CT. Anterior mediastinal mass measuring 2.3 x 3.6 x 4.2 cm arising from the right thyroid gland. No mediastinal lymphadenopathy. ABDOMEN/PELVIS: Hepatic steatosis. Partial right colectomy with partially calcified tubular structure arising from the surgical site. This is of unclear etiology. Correlate with prior operative report. Fleischner guidelines were followed. Electronically signed by: Shahzad Shultz DO 04/01/2024 05:32 PM EDT RP <ABDIEL Rossi - Last Filed: 04/02/24 03:28> Assessment and Plan (1) DKA (diabetic ketoacidosis): Status: Acute <ABDIEL Rossi - Last Filed: 04/02/24 03:28> ASSESSMENT : 1. Acute DKA 2. Severe metabolic acidosis due to above 3. Acute Kidney injury on chronic kidney disease stage III 4. Reactive leukocytosis 5. Proteinuria and glucosuria 6. Reactive tachycardia 7. 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 4 mm right middle lobe nodule also in need of outpatient follow-up 9. Asymptomatic coronary disease post stent 25 years ago. 10. Constipation 11. Tobacco abuse willing to try the patch 12. Intermittent marijuana and alcohol use PLAN OF CARE: Patient will be admitted to the ICU, monitor vital signs, I and O's. The patient is clearly indicate regardless of borderline abnormal blood sugar given the significant acidosis, of requested to place the patient on D5 LR, give IV insulin and start a insulin drip, will repeat laboratories every 4 hours, check POC is every 1 hour. ?We will continue with the insulin until the gap closes, at which point we may be able to start him on long-acting insulin.? He will be allowed to have ice chips and water only for now.? Patient will need outpatient follow-up for the above-mentioned incidental findings including the mediastinal mass as well as the right middle lobe nodule. Patient does admit to take daily aspirin, metoprolol at home, he does not use any nitroglycerin.? While we find out the medication list from his pharmacy, will place him on a daily aspirin and give him low-dose metoprolol as he is tachycardic; however will be mindful that beta-blockers can mask the hypoglycemia symptoms. I had a lengthy discussion with the patient about risk of continuing to smoke, smoking cessation was advised and the patient agrees to try the nicotine patch. We will place him on a bowel regimen as well. GI PROPHYLAXIS:? Protonix DVT PROPHYLAXIS:? SubQ heparin Critical care time used for critical evaluation of this patient, diagnosis, treatment and coordination of care, review her records and documentation TOTAL CRITICAL CARE TIME 120 MIN . discussion and coordination with consultants, completely separate from any procedures performed. Patient's care was discussed in detail with Dr. Damon who is aware of all the above as well as the plan of care for this patient. <ABDIEL Rossi - Last Filed: 04/02/24 03:28> ASSESSMENT : 1. Acute DKA 2. Severe metabolic acidosis due to above 3. Acute Kidney injury on chronic kidney disease stage III 4. Reactive leukocytosis 5. Proteinuria and glucosuria 6. Reactive tachycardia 7. 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 4 mm right middle lobe nodule also in need of outpatient follow-up 9. Asymptomatic coronary disease post stent 25 years ago. 10. Constipation 11. Tobacco abuse willing to try the patch 12. Intermittent marijuana and alcohol use PLAN OF CARE: Patient will be admitted to the ICU, monitor vital signs, I and O's. The patient is clearly indicate regardless of borderline abnormal blood sugar given the significant acidosis, of requested to place the patient on D5 LR, give IV insulin and start a insulin drip, will repeat laboratories every 4 hours, check POC is every 1 hour. ?We will continue with the insulin until the gap closes, at which point we may be able to start him on long-acting insulin.? He will be allowed to have ice chips and water only for now.? Patient will need outpatient follow-up for the above-mentioned incidental findings including the mediastinal mass as well as the right middle lobe nodule. Patient does admit to take daily aspirin, metoprolol at home, he does not use any nitroglycerin.? While we find out the medication list from his pharmacy, will place him on a daily aspirin and give him low-dose metoprolol as he is tachycardic; however will be mindful that beta-blockers can mask the hypoglycemia symptoms. Patient is admitted to the medical ICU for the management of euglycemic DKA which is a known complication of Jardiance. We will hold off on further Jardiance, we will start the patient on insulin drip with dose adjusted as per blood sugars every 1 hour. NPO until the gap closes, we will get BMP, and phos every 4 hours and replete potassium as needed. Euglycemic DKA tends to last longer than the regular DKA due to ongoing metabolic some of the Jardiance, we will continue to closely monitor him in the ICU until then. I had a lengthy discussion with the patient about risk of continuing to smoke, smoking cessation was advised and the patient agrees to try the nicotine patch. We will place him on a bowel regimen as well. GI PROPHYLAXIS:? Protonix DVT PROPHYLAXIS:? SubQ heparin Critical care time used for critical evaluation of this patient, diagnosis, treatment and coordination of care, review her records and documentation TOTAL CRITICAL CARE TIME 60 MIN . discussion and coordination with consultants, completely separate from any procedures performed. Patient's care was discussed in detail with Dr. Damon who is aware of all the above as well as the plan of care for this patient. <Kevin Damon MD - Last Filed: 04/02/24 12:07>
[2024-04-01] MEDS: Sodium Bicarbonate 8.4% 50 MEQ/50 ML SYRINGE IVPUSH (19:54)
[2024-04-01] MEDS: Insulin Regular, Human 100 UNIT/ML 10 ML VIAL 8 UNIT IVPUSH (19:55)
[2024-04-01 19:59] LABS: VBG Base Excess -17.1 mmol/L; VBG HCO3 8 mmol/L (22-26); VBG pCO2 21 mmHg; VBG pO2 84 mmHg
[2024-04-01 20:00] LABS: Venous Blood Gas Refer to POC result
--- NOTE | 2024-04-01 20:18 | PC.NURSE ---
report given to Marina RN in ICU, pt transported to ICU with this RN.
[2024-04-01] MEDS: Insulin Regular/NS 100 UNIT/100 ML PLAST..BAG 8 UNIT IVCONT (20:20)
[2024-04-01 20:21] LABS: Glucose, Whole Blood 193 mg/dL (60-115)
[2024-04-01 20:21] LABS: Alanine Aminotransferase 24 U/L (0-40); Albumin Level 4.3 g/dL (3.5-5.0); Alkaline Phosphatase 87 U/L (39-117); Anion Gap 29 (12-20); Aspartate Amino Transferase 21 U/L (5-37); Bilirubin Total 0.3 mg/dL (0.0-1.0); Blood Urea Nitrogen 14 mg/dL (9-16); Calcium 9.5 mg/dL (8.4-10.2); Carbon Dioxide 9 mmol/L (22-29); Chloride 105 mmol/L (96-108); Creatinine Clr Calc Pharmacy 42.4; Estimated Glomerular Filt Rate 35; Glucose Random 196 mg/dL (60-115); Potassium 4.7 mmol/L (3.3-5.1); Sodium 138 mmol/L (135-145)
[2024-04-01] MEDS: Heparin Sodium,Porcine 5,000 UNIT/ML VIAL 5000 UNIT SUBCUT (20:31)
[2024-04-01 21:06] LABS: Glucose, Whole Blood 185 mg/dL (60-115)
[2024-04-01] MEDS: Metoprolol Tartrate 5 MG/5 ML VIAL 2.5 MG IVPUSH (21:58)
[2024-04-01 22:03] LABS: Glucose, Whole Blood 152 mg/dL (60-115)
[2024-04-01] MEDS: Docusate Sodium 100 MG CAPSULE 200 MG PO (22:58)
[2024-04-01] MEDS: bisacodyL 5 MG TABLET.DR 10 MG PO (22:58)
[2024-04-01] MEDS: Nicotine 14 MG PATCH.TD24 TRANSDERMA (22:59)
[2024-04-01 23:10] LABS: Glucose, Whole Blood 120 mg/dL (60-115)
[2024-04-02] VITALS (23 sets, daily range): BP systolic 112–160; BP diastolic 59–95; PULSE 62–102; RESP 12–20; TEMP 36.2–36.9; O2SAT 91–98; BMI 31.4; BMI 31.5
--- NOTE | 2024-04-02 | ECG_ITS ---
Test Reason : chest pain Blood Pressure : / mmHG Vent. Rate : 074 BPM Atrial Rate : 074 BPM P-R Int : 134 ms QRS Dur : 090 ms QT Int : 382 ms P-R-T Axes : 044 028 024 degrees QTc Int : 424 ms Normal sinus rhythm Increased R/S ratio in V1, consider early transition or posterior infarct Abnormal ECG When compared with ECG of 01-APR-2024 14:51, Vent. rate has decreased BY 50 BPM Referred By: Kevin Damon Electronically Signed By:YAHAIRA VALDIVIA
[2024-04-02 00:11] LABS: Glucose, Whole Blood 139 mg/dL (60-115)
[2024-04-02 00:30] LABS: Alanine Aminotransferase 22 U/L (0-40); Alkaline Phosphatase 80 U/L (39-117); Anion Gap 20 (12-20); Aspartate Amino Transferase 21 U/L (5-37); Bilirubin Total 0.3 mg/dL (0.0-1.0); Blood Urea Nitrogen 14 mg/dL (9-16); Calcium 9.4 mg/dL (8.4-10.2); Carbon Dioxide 13 mmol/L (22-29); Chloride 109 mmol/L (96-108); Estimated Glomerular Filt Rate 40; Glucose Random 132 mg/dL (60-115); Potassium 4.4 mmol/L (3.3-5.1); Sodium 138 mmol/L (135-145); Total Protein 6.6 g/dL (6.5-8.0)
[2024-04-02 01:06] LABS: Glucose, Whole Blood 127 mg/dL (60-115)
[2024-04-02 01:22] LABS: Glucose, Whole Blood 137 mg/dL (60-115)
[2024-04-02 02:13] LABS: Glucose, Whole Blood 124 mg/dL (60-115)
[2024-04-02] MEDS: Dextrose 5 % and Lactated Ring 1,000 ML 150 ML IVCONT ×3 (02:30→21:46)
[2024-04-02] MEDS: Sodium Bicarbonate 8.4% 50 MEQ/50 ML SYRINGE IVPUSH (02:31)
[2024-04-02 03:04] LABS: Glucose, Whole Blood 118 mg/dL (60-115)
[2024-04-02 04:08] LABS: Glucose, Whole Blood 107 mg/dL (60-115)
[2024-04-02 05:07] LABS: Glucose, Whole Blood 101 mg/dL (60-115)
[2024-04-02] MEDS: ondansetron HCL 4 MG/2 ML VIAL IVPUSH (05:07)
[2024-04-02] MEDS: Omeprazole 40 MG CAPSULE.DR PO (05:07)
[2024-04-02 05:37] LABS: MANUAL DIFF FLAG NO
[2024-04-02 05:42] LABS: Basophils Percent Auto 0.1 % (0-2); Hematocrit 40.6 % (42.0-52.0); Hemoglobin 14.5 g/dl (14.0-18.0); Imm Gran Abs Auto 0.04 X10*3/uL (0.00-0.03); Imm Gran Pct Auto 0.4 % (0.0-0.4); Lymphocytes Percent Auto 10.5 % (20-40); Mean Corpuscular HGB Conc 35.7 g/dl (31.0-36.0); Mean Corpuscular Volume 92.5 fL (80.0-98.0); Mean Platelet Volume 9.6 fL (9.4-12.4); Monocytes Absolute Auto 1.1 X10*3/uL (0.1-1.2); Monocytes Percent Auto 10.6 % (2-11); Neutrophils Absolute Auto 7.8 x10*3/uL (2.0-8.3); Neutrophils Percent Auto 78.4 % (45-73); Platelet Count 223 X10*3/uL (160-400); Red Blood Count 4.39 X10*6/uL (4.60-5.80); Red Cell Distribution Width 13.7 % (11.0-16.0); White Blood Count 9.9 X10*3/uL (4.8-10.8)
[2024-04-02 05:57] LABS: Venous Blood Gas Refer to POC result
[2024-04-02 05:57] LABS: VBG HCO3 24 mmol/L (22-26); VBG pCO2 40 mmHg; VBG pH 7.37 (7.32-7.43); VBG pO2 71 mmHg
[2024-04-02 05:58] LABS: Alanine Aminotransferase 21 U/L (0-40); Albumin Level 4.1 g/dL (3.5-5.0); Alkaline Phosphatase 81 U/L (39-117); Anion Gap 17 (12-20); Aspartate Amino Transferase 18 U/L (5-37); Bilirubin Total 0.3 mg/dL (0.0-1.0); Blood Urea Nitrogen 11 mg/dL (9-16); Calcium 9.6 mg/dL (8.4-10.2); Carbon Dioxide 23 mmol/L (22-29); Chloride 105 mmol/L (96-108); Creatinine Clr Calc Pharmacy 49.6; Estimated Glomerular Filt Rate 43; Glucose Random 100 mg/dL (60-115); Magnesium 1.9 mg/dL (1.6-2.6); Phosphorus 1.9 mg/dL (2.7-4.5); Potassium 3.8 mmol/L (3.3-5.1); Sodium 141 mmol/L (135-145); Total Protein 6.7 g/dL (6.5-8.0)
[2024-04-02] MEDS: Insulin Glargine,Hum.rec.anlog 100 UNIT/ML 10 ML VIAL 35 UNIT SUBCUT (06:17)
[2024-04-02 06:42] LABS: Estimated Average Glucose 163 mg/dL; Hemoglobin A1C 195.9887 umol/L; Hemoglobin A1c % 7.3 % (<6.0); Total Hemoglobin (HGBA1C) 3498.1409 umol/L
[2024-04-02] MEDS: Potassium Phosphate/NS 15 MMOL/250 ML PLAST..BAG 62.5 MMOL IV ×2 (08:08→21:47)
[2024-04-02] MEDS: Heparin Sodium,Porcine 5,000 UNIT/ML VIAL 5000 UNIT SUBCUT ×2 (08:12→20:00)
[2024-04-02 08:15] LABS: Glucose, Whole Blood 82 mg/dL (60-115)
[2024-04-02] MEDS: HYDROmorphone HCl 0.5 MG/0.5 ML SYRINGE IVPUSH ×3 (08:22→21:08)
[2024-04-02] MEDS: Metoprolol Tartrate 12.5 MG HALFTAB PO ×2 (08:27→19:59)
[2024-04-02] MEDS: Aspirin 81 MG TAB.CHEW PO (08:27)
[2024-04-02] MEDS: Nicotine 14 MG PATCH.TD24 TRANSDERMA (08:28)
[2024-04-02 09:36] LABS: Anion Gap 21 (12-20); Blood Urea Nitrogen 10 mg/dL (9-16); Calcium 9.4 mg/dL (8.4-10.2); Carbon Dioxide 21 mmol/L (22-29); Chloride 104 mmol/L (96-108); Creatinine Clr Calc Pharmacy 54.9; Estimated Glomerular Filt Rate 47; Glucose Random 94 mg/dL (60-115); Sodium 142 mmol/L (135-145)
--- NOTE | 2024-04-02 09:39 | PHA.MEDREC ---
Addendum entered by Kristen Baltazar RPh 04/02/24 09:56: Reviewed by [facility]. Original Note: Pharmacy Consult ? Medication Reconciliation Pharmacy has completed the medication reconciliation. Received verbal list from [facility]. Discussed med list with the patient. He no longer uses clotrimazole cream and no longer takes chantix. He uses 35 units of his long acting insulin in the morning. [facility] Semglee [facility] however patient reported he uses lantus. I kept semglee since [facility] had no other inactive medications to suggest he has lantus. He confirmed he uses novolog pen SS [id number]. Patient reports no OTC use and he has not taken his medications for 3-4 days.
[2024-04-02 12:05] LABS: Glucose, Whole Blood 142 mg/dL (60-115)
--- NOTE | 2024-04-02 12:07 | PM.CCPN ---
Subjective Subjective Date of Service: 04/02/24 Critical Care Time (minutes): 40 Comment: This morning his anion gap had decreased to 17 but bounced back to 21 so insulin drip has been restarted. Complaints of pain epigastrium, EKG ordered and troponin trends given his history of diabetes Physical Exam Vital Signs: Vital Signs: Last Vital Signs Temp 98.5 F 04/02/24 12:00 Pulse 78 04/02/24 12:00 Resp 18 04/02/24 12:00 BP 129/78 04/02/24 12:00 Pulse Ox 97 04/02/24 12:00 O2 Del Method Room Air 04/02/24 12:00 BMI result Body Mass Index 31.5 General: Lying in the bed comfortable, not in distress Nutritional Appearance: well nourished and overweight Eyes: appearance normal, both eyes and all related structures; Alignment and Position: alignment normal and position normal Neck: No lymphadenopathy, no thyromegaly Resp: bilateral air entry equal, no added sounds present Cardio: Regular rate, regular rhythm; Heart sounds: S1 normal heart sound present and S2 normal heart sound present GI: soft, nontender, no guarding, no hepatosplenomegaly : bladder normal to inspection, bladder normal to palpation, no renal angle tenderness Skin: no rashes or lesions noted and elasticity normal Neuro: oriented to person, oriented to place, oriented to time and moves all extremities Objective Data Labs 04/02/24 05:02 04/02/24 08:58 Labs: Laboratory Results - last 24 hr 04/01/24 04/01/24 04/01/24 15:05 16:12 16:15 WBC 11.2 H RBC 4.81 Hgb 15.8 Hct 45.4 MCV 94.4 MCH 32.8 MCHC 34.8 RDW 13.8 Plt Count 224 MPV 9.6 Immature Gran % (Auto) 0.4 Neut % (Auto) 83.3 H Lymph % (Auto) 10.0 L Jennings % (Auto) 6.0 Eos % (Auto) 0.0 Baso % (Auto) 0.3 Lymph # (Auto) 1.1 L Jennings # (Auto) 0.7 Eos # (Auto) 0.0 Baso # (Auto) 0.0 Abs Immat Gran (auto) 0.04 H Absolute Neuts (auto) 9.3 H Absolute Nucleated RBC 0.000 Nucleated RBC % (auto) 0.0 VBG pH 7.20 L* VBG pCO2 18 VBG pO2 77 VBG HCO3 7 L VBG O2 Saturation 93.0 VBG Base Excess -18.1 Sodium 136 Potassium 4.4 Chloride 101 Carbon Dioxide 7 L* Anion Gap 32 H BUN 14 Creatinine 2.00 H Estim Creat Clear Calc 40.4 Estimated GFR 34 POC Glucose Random Glucose 203 H Estimat Average Glucose Hemoglobin A1c % Lactic Acid 2.0 Calcium 10.7 H Phosphorus Magnesium 2.0 Total Bilirubin 0.4 AST 25 ALT 26 Alkaline Phosphatase 97 Total Protein 7.6 Albumin 4.6 Lipase 18 Beta-Hydroxybutyrate 12.53 H Urine Color Urine Appearance Urine pH Ur Specific [place] Urine Protein Urine Glucose (UA) Urine Ketones Urine Blood Urine Nitrite Ur Leukocyte Esterase Urine RBC Urine WBC Ur Squamous Epith Cells Urine Bacteria Hyaline Casts Urine Opiates Screen Ur Buprenorphine Scrn Ur Oxycodone Screen Urine Methadone Screen Urine Fentanyl Screen Ur Barbiturates Screen Ur Phencyclidine Scrn Ur Amphetamines Screen U Benzodiazepines Scrn Urine Cocaine Screen U Marijuana (THC) Screen Ethyl Alcohol < 10 Influenza Type A (PCR) NEGATIVE Influenza Type B (PCR) NEGATIVE RSV RNA Qual (PCR) NEGATIVE SARS-CoV-2 RNA (RT-PCR) NEGATIVE 04/01/24 04/01/24 04/01/24 18:49 19:30 19:45 WBC RBC Hgb Hct MCV MCH MCHC RDW Plt Count MPV Immature Gran % (Auto) Neut % (Auto) Lymph % (Auto) Jennings % (Auto) Eos % (Auto) Baso % (Auto) Lymph # (Auto) [place] # (Auto) Eos # (Auto) Baso # (Auto) Abs Immat Gran (auto) Absolute Neuts (auto) Absolute Nucleated RBC Nucleated RBC % (auto) VBG pH VBG pCO2 VBG pO2 VBG HCO3 VBG O2 Saturation VBG Base Excess Sodium 138 Potassium 4.7 Chloride 105 Carbon Dioxide 9 L* D Anion Gap 29 H BUN 14 Creatinine 1.95 H Estim Creat Clear Calc 42.4 Estimated GFR 35 POC Glucose 183 H Random Glucose 196 H Estimat Average Glucose Hemoglobin A1c % Lactic Acid Calcium 9.5 D Phosphorus Magnesium Total Bilirubin 0.3 AST 21 ALT 24 Alkaline Phosphatase 87 Total Protein 7.0 Albumin 4.3 Lipase Beta-Hydroxybutyrate Urine Color Yellow Urine Appearance Clear Urine pH 5.0 Ur Specific [place] 1.020 Urine Protein 30 (1+) H Urine Glucose (UA) >=1000 H Urine Ketones >=160 Urine Blood Negative Urine Nitrite Negative Ur Leukocyte Esterase Negative Urine RBC 0-2 Urine WBC 0-5 Ur Squamous Epith Cells 0-2 Urine Bacteria None Seen Hyaline Casts 0-2 Urine Opiates Screen POSITIVE H Ur Buprenorphine Scrn Not Detected Ur Oxycodone Screen Not Detected Urine Methadone Screen Not Detected Urine Fentanyl Screen Not Detected Ur Barbiturates Screen Not Detected Ur Phencyclidine Scrn Not Detected Ur Amphetamines Screen Not Detected U Benzodiazepines Scrn Not Detected Urine Cocaine Screen Not Detected U Marijuana (THC) Screen Not Detected Ethyl Alcohol Influenza Type A (PCR) Influenza Type B (PCR) RSV RNA Qual (PCR) SARS-CoV-2 RNA (RT-PCR) 04/01/24 04/01/24 04/01/24 19:49 20:17 21:02 WBC RBC Hgb Hct MCV MCH MCHC RDW Plt Count MPV Immature Gran % (Auto) Neut % (Auto) Lymph % (Auto) Jennings % (Auto) Eos % (Auto) Baso % (Auto) Lymph # (Auto) [place] # (Auto) Eos # (Auto) Baso # (Auto) Abs Immat Gran (auto) Absolute Neuts (auto) Absolute Nucleated RBC Nucleated RBC % (auto) VBG pH 7.20 L* VBG pCO2 21 VBG pO2 84 VBG HCO3 8 L VBG O2 Saturation 96.0 VBG Base Excess -17.1 Sodium Potassium Chloride Carbon Dioxide Anion Gap BUN Creatinine Estim Creat Clear Calc Estimated GFR POC Glucose 193 H 185 H Random Glucose Estimat Average Glucose Hemoglobin A1c % Lactic Acid Calcium Phosphorus Magnesium Total Bilirubin AST ALT Alkaline Phosphatase Total Protein Albumin Lipase Beta-Hydroxybutyrate Urine Color Urine Appearance Urine pH Ur Specific [place] Urine Protein Urine Glucose (UA) Urine Ketones Urine Blood Urine Nitrite Ur Leukocyte Esterase Urine RBC Urine WBC Ur Squamous Epith Cells Urine Bacteria Hyaline Casts Urine Opiates Screen Ur Buprenorphine Scrn Ur Oxycodone Screen Urine Methadone Screen Urine Fentanyl Screen Ur Barbiturates Screen Ur Phencyclidine Scrn Ur Amphetamines Screen U Benzodiazepines Scrn Urine Cocaine Screen U Marijuana (THC) Screen Ethyl Alcohol Influenza Type A (PCR) Influenza Type B (PCR) RSV RNA Qual (PCR) SARS-CoV-2 RNA (RT-PCR) 04/01/24 04/01/24 04/01/24 21:59 23:05 23:59 WBC RBC Hgb Hct MCV MCH MCHC RDW Plt Count MPV Immature Gran % (Auto) Neut % (Auto) Lymph % (Auto) [place] % (Auto) Eos % (Auto) Baso % (Auto) Lymph # (Auto) [place] # (Auto) Eos # (Auto) Baso # (Auto) Abs Immat Gran (auto) Absolute Neuts (auto) Absolute Nucleated RBC Nucleated RBC % (auto) VBG pH VBG pCO2 VBG pO2 VBG HCO3 VBG O2 Saturation VBG Base Excess Sodium 138 Potassium 4.4 Chloride 109 H Carbon Dioxide 13 L Anion Gap 20 BUN 14 Creatinine 1.73 H Estim Creat Clear Calc 47.0 Estimated GFR 40 POC Glucose 152 H 120 H Random Glucose 132 H Estimat Average Glucose Hemoglobin A1c % Lactic Acid Calcium 9.4 Phosphorus Magnesium Total Bilirubin 0.3 AST 21 ALT 22 Alkaline Phosphatase 80 Total Protein 6.6 Albumin 4.0 Lipase Beta-Hydroxybutyrate Urine Color Urine Appearance Urine pH Ur Specific [place] Urine Protein Urine Glucose (UA) Urine Ketones Urine Blood Urine Nitrite Ur Leukocyte Esterase Urine RBC Urine WBC Ur Squamous Epith Cells Urine Bacteria Hyaline Casts Urine Opiates Screen Ur Buprenorphine Scrn Ur Oxycodone Screen Urine Methadone Screen Urine Fentanyl Screen Ur Barbiturates Screen Ur Phencyclidine Scrn Ur Amphetamines Screen U Benzodiazepines Scrn Urine Cocaine Screen U Marijuana (THC) Screen Ethyl Alcohol Influenza Type A (PCR) Influenza Type B (PCR) RSV RNA Qual (PCR) SARS-CoV-2 RNA (RT-PCR) 04/02/24 04/02/24 04/02/24 00:08 01:03 01:18 WBC RBC Hgb Hct MCV MCH MCHC RDW Plt Count MPV Immature Gran % (Auto) Neut % (Auto) Lymph % (Auto) [place] % (Auto) Eos % (Auto) Baso % (Auto) Lymph # (Auto) [place] # (Auto) Eos # (Auto) Baso # (Auto) Abs Immat Gran (auto) Absolute Neuts (auto) Absolute Nucleated RBC Nucleated RBC % (auto) VBG pH VBG pCO2 VBG pO2 VBG HCO3 VBG O2 Saturation VBG Base Excess Sodium Potassium Chloride Carbon Dioxide Anion Gap BUN Creatinine Estim Creat Clear Calc Estimated GFR POC Glucose 139 H 127 H 137 H Random Glucose Estimat Average Glucose Hemoglobin A1c % Lactic Acid Calcium Phosphorus Magnesium Total Bilirubin AST ALT Alkaline Phosphatase Total Protein Albumin Lipase Beta-Hydroxybutyrate Urine Color Urine Appearance Urine pH Ur Specific [place] Urine Protein Urine Glucose (UA) Urine Ketones Urine Blood Urine Nitrite Ur Leukocyte Esterase Urine RBC Urine WBC Ur Squamous Epith Cells Urine Bacteria Hyaline Casts Urine Opiates Screen Ur Buprenorphine Scrn Ur Oxycodone Screen Urine Methadone Screen Urine Fentanyl Screen Ur Barbiturates Screen Ur Phencyclidine Scrn Ur Amphetamines Screen U Benzodiazepines Scrn Urine Cocaine Screen U Marijuana (THC) Screen Ethyl Alcohol Influenza Type A (PCR) Influenza Type B (PCR) RSV RNA Qual (PCR) SARS-CoV-2 RNA (RT-PCR) 04/02/24 04/02/24 04/02/24 02:08 03:00 04:04 WBC RBC Hgb Hct MCV MCH MCHC RDW Plt Count MPV Immature Gran % (Auto) Neut % (Auto) Lymph % (Auto) [place] % (Auto) Eos % (Auto) Baso % (Auto) Lymph # (Auto) [place] # (Auto) Eos # (Auto) Baso # (Auto) Abs Immat Gran (auto) Absolute Neuts (auto) Absolute Nucleated RBC Nucleated RBC % (auto) VBG pH VBG pCO2 VBG pO2 VBG HCO3 VBG O2 Saturation VBG Base Excess Sodium Potassium Chloride Carbon Dioxide Anion Gap BUN Creatinine Estim Creat Clear Calc Estimated GFR POC Glucose 124 H 118 H 107 Random Glucose Estimat Average Glucose Hemoglobin A1c % Lactic Acid Calcium Phosphorus Magnesium Total Bilirubin AST ALT Alkaline Phosphatase Total Protein Albumin Lipase Beta-Hydroxybutyrate Urine Color Urine Appearance Urine pH Ur Specific [place] Urine Protein Urine Glucose (UA) Urine Ketones Urine Blood Urine Nitrite Ur Leukocyte Esterase Urine RBC Urine WBC Ur Squamous Epith Cells Urine Bacteria Hyaline Casts Urine Opiates Screen Ur Buprenorphine Scrn Ur Oxycodone Screen Urine Methadone Screen Urine Fentanyl Screen Ur Barbiturates Screen Ur Phencyclidine Scrn Ur Amphetamines Screen U Benzodiazepines Scrn Urine Cocaine Screen U Marijuana (THC) Screen Ethyl Alcohol Influenza Type A (PCR) Influenza Type B (PCR) RSV RNA Qual (PCR) SARS-CoV-2 RNA (RT-PCR) 04/02/24 04/02/24 04/02/24 05:02 05:03 05:52 WBC 9.9 RBC 4.39 L Hgb 14.5 Hct 40.6 L MCV 92.5 MCH 33.0 MCHC 35.7 RDW 13.7 Plt Count 223 MPV 9.6 Immature Gran % (Auto) 0.4 Neut % (Auto) 78.4 H Lymph % (Auto) 10.5 L [place] % (Auto) 10.6 Eos % (Auto) 0.0 Baso % (Auto) 0.1 Lymph # (Auto) 1.0 L [place] # (Auto) 1.1 Eos # (Auto) 0.0 Baso # (Auto) 0.0 Abs Immat Gran (auto) 0.04 H Absolute Neuts (auto) 7.8 Absolute Nucleated RBC 0.000 Nucleated RBC % (auto) 0.0 VBG pH VBG pCO2 VBG pO2 VBG HCO3 VBG O2 Saturation VBG Base Excess Sodium 141 Potassium 3.8 Chloride 105 Carbon Dioxide 23 Anion Gap 17 BUN 11 Creatinine 1.64 H Estim Creat Clear Calc 49.6 Estimated GFR 43 POC Glucose 101 Random Glucose 100 Estimat Average Glucose 163 Hemoglobin A1c % 7.3 H Lactic Acid Calcium 9.6 Phosphorus 1.9 L Magnesium 1.9 Total Bilirubin 0.3 AST 18 ALT 21 Alkaline Phosphatase 81 Total Protein 6.7 Albumin 4.1 Lipase Beta-Hydroxybutyrate Urine Color Urine Appearance Urine pH Ur Specific [place] Urine Protein Urine Glucose (UA) Urine Ketones Urine Blood Urine Nitrite Ur Leukocyte Esterase Urine RBC Urine WBC Ur Squamous Epith Cells Urine Bacteria Hyaline Casts Urine Opiates Screen Ur Buprenorphine Scrn Ur Oxycodone Screen Urine Methadone Screen Urine Fentanyl Screen Ur Barbiturates Screen Ur Phencyclidine Scrn Ur Amphetamines Screen U Benzodiazepines Scrn Urine Cocaine Screen U Marijuana (THC) Screen Ethyl Alcohol Influenza Type A (PCR) Influenza Type B (PCR) RSV RNA Qual (PCR) SARS-CoV-2 RNA (RT-PCR) 04/02/24 04/02/24 04/02/24 05:53 08:12 08:58 WBC RBC Hgb Hct MCV MCH MCHC RDW Plt Count MPV Immature Gran % (Auto) Neut % (Auto) Lymph % (Auto) [place] % (Auto) Eos % (Auto) Baso % (Auto) Lymph # (Auto) [place] # (Auto) Eos # (Auto) Baso # (Auto) Abs Immat Gran (auto) Absolute Neuts (auto) Absolute Nucleated RBC Nucleated RBC % (auto) VBG pH 7.37 VBG pCO2 40 VBG pO2 71 VBG HCO3 24 VBG O2 Saturation 93.0 VBG Base Excess -1.0 Sodium 142 Potassium 4.0 Chloride 104 Carbon Dioxide 21 L Anion Gap 21 H BUN 10 Creatinine 1.51 H Estim Creat Clear Calc 54.9 Estimated GFR 47 POC Glucose 82 Random Glucose 94 Estimat Average Glucose Hemoglobin A1c % Lactic Acid Calcium 9.4 Phosphorus Magnesium Total Bilirubin AST ALT Alkaline Phosphatase Total Protein Albumin Lipase Beta-Hydroxybutyrate Urine Color Urine Appearance Urine pH Ur Specific [place] Urine Protein Urine Glucose (UA) Urine Ketones Urine Blood Urine Nitrite Ur Leukocyte Esterase Urine RBC Urine WBC Ur Squamous Epith Cells Urine Bacteria Hyaline Casts Urine Opiates Screen Ur Buprenorphine Scrn Ur Oxycodone Screen Urine Methadone Screen Urine Fentanyl Screen Ur Barbiturates Screen Ur Phencyclidine Scrn Ur Amphetamines Screen U Benzodiazepines Scrn Urine Cocaine Screen U Marijuana (THC) Screen Ethyl Alcohol Influenza Type A (PCR) Influenza Type B (PCR) RSV RNA Qual (PCR) SARS-CoV-2 RNA (RT-PCR) 04/02/24 11:39 WBC RBC Hgb Hct MCV MCH MCHC RDW Plt Count MPV Immature Gran % (Auto) Neut % (Auto) Lymph % (Auto) [place] % (Auto) Eos % (Auto) Baso % (Auto) Lymph # (Auto) [place] # (Auto) Eos # (Auto) Baso # (Auto) Abs Immat Gran (auto) Absolute Neuts (auto) Absolute Nucleated RBC Nucleated RBC % (auto) VBG pH VBG pCO2 VBG pO2 VBG HCO3 VBG O2 Saturation VBG Base Excess Sodium Potassium Chloride Carbon Dioxide Anion Gap BUN Creatinine Estim Creat Clear Calc Estimated GFR POC Glucose 142 H Random Glucose Estimat Average Glucose Hemoglobin A1c % Lactic Acid Calcium Phosphorus Magnesium Total Bilirubin AST ALT Alkaline Phosphatase Total Protein Albumin Lipase Beta-Hydroxybutyrate Urine Color Urine Appearance Urine pH Ur Specific [place] Urine Protein Urine Glucose (UA) Urine Ketones Urine Blood Urine Nitrite Ur Leukocyte Esterase Urine RBC Urine WBC Ur Squamous Epith Cells Urine Bacteria Hyaline Casts Urine Opiates Screen Ur Buprenorphine Scrn Ur Oxycodone Screen Urine Methadone Screen Urine Fentanyl Screen Ur Barbiturates Screen Ur Phencyclidine Scrn Ur Amphetamines Screen U Benzodiazepines Scrn Urine Cocaine Screen U Marijuana (THC) Screen Ethyl Alcohol Influenza Type A (PCR) Influenza Type B (PCR) RSV RNA Qual (PCR) SARS-CoV-2 RNA (RT-PCR) Progress Note: A&P Assessment and plan (1) DKA (diabetic ketoacidosis): Status: Acute (2) Acute dehydration: Status: Acute (3) Metabolic acidosis: Status: Acute Plan DKA: Euglycemic DKA secondary to Jardiance Continue insulin drip titrated for q.1 hour blood sugars D5 LR to maintain blood sugars while on insulin Q.4 BMP, Mag and phos and electrolyte replacement accordingly Acute on chronic kidney disease: Has underlying CKD, MONSE due to DKA Presented with creatinine of 2, right now down to 1.5 High anion gap metabolic acidosis: Secondary to DKA and MONSE Gap 21, we will continue fluids and insulin until the gap closes Coronary artery disease: Continue aspirin and metoprolol Complaints of epigastric pain which might be possibly to GERD but we will get an EKG and trend troponins given his underlying diabetes and CAD GERD: We will switch to IV pantoprazole, we will add sucralfate. Continue as needed Zofran Prophylaxis: Heparin, pantoprazole Quality Stroke Does the patient have a stroke diagnosis?: No VTE Prior VTE?: No VTE Risk Level:: Medical - moderate - high VTE Device Contraindication: N/A - Device Ordered VTE Drug Contraindication: N/A - Med Ordered
[2024-04-02] MEDS: Pantoprazole Sodium 40 MG/10 ML VIAL IVPUSH (12:35)
[2024-04-02 13:03] LABS: Glucose, Whole Blood 125 mg/dL (60-115)
[2024-04-02 13:57] LABS: Troponin-I High Sensitivity 5.4 ng/L (<3.5-35.0)
--- NOTE | 2024-04-02 14:31 | MHC.CM.PN ---
Attempted to meet with patient in regards to discharge planning. Patient currently sleeping. No family present. Will attempt to meet again. Continue to monitor for d/c needs.
[2024-04-02 14:49] LABS: Glucose, Whole Blood 102 mg/dL (60-115)
[2024-04-02] MEDS: Sucralfate Oral Suspension 1 GM/10 ML ORAL.SUSP PO ×2 (15:17→20:00)
[2024-04-02 15:22] LABS: Glucose, Whole Blood 101 mg/dL (60-115)
[2024-04-02 16:13] LABS: Glucose, Whole Blood 116 mg/dL (60-115)
[2024-04-02 17:13] LABS: Glucose, Whole Blood 114 mg/dL (60-115)
[2024-04-02 17:32] LABS: Anion Gap 17 (12-20); Blood Urea Nitrogen 8 mg/dL (9-16); Carbon Dioxide 22 mmol/L (22-29); Chloride 107 mmol/L (96-108); Creatinine Clr Calc Pharmacy 59.2; Estimated Glomerular Filt Rate 51; Glucose Random 110 mg/dL (60-115); Potassium 3.6 mmol/L (3.3-5.1); Sodium 142 mmol/L (135-145)
[2024-04-02 18:19] LABS: Glucose, Whole Blood 120 mg/dL (60-115)
[2024-04-02 19:04] LABS: Glucose, Whole Blood 111 mg/dL (60-115)
[2024-04-02] MEDS: Insulin Regular/NS 100 UNIT/100 ML PLAST..BAG IVCONT (20:00)
[2024-04-02 20:04] LABS: Glucose, Whole Blood 112 mg/dL (60-115)
[2024-04-02 21:06] LABS: Glucose, Whole Blood 142 mg/dL (60-115)
[2024-04-02 21:07] LABS: Alanine Aminotransferase 19 U/L (0-40); Albumin Level 3.5 g/dL (3.5-5.0); Alkaline Phosphatase 71 U/L (39-117); Anion Gap 16 (12-20); Aspartate Amino Transferase 19 U/L (5-37); Bilirubin Total 0.3 mg/dL (0.0-1.0); Blood Urea Nitrogen 7 mg/dL (9-16); Calcium 9.1 mg/dL (8.4-10.2); Carbon Dioxide 21 mmol/L (22-29); Chloride 108 mmol/L (96-108); Creatinine Clr Calc Pharmacy 60.5; Estimated Glomerular Filt Rate 52; Glucose Random 124 mg/dL (60-115); Potassium 3.7 mmol/L (3.3-5.1); Sodium 141 mmol/L (135-145); Total Protein 5.9 g/dL (6.5-8.0)
[2024-04-02 21:08] LABS: Troponin-I High Sensitivity 5.2 ng/L (<3.5-35.0)
[2024-04-02 22:07] LABS: Glucose, Whole Blood 109 mg/dL (60-115)
[2024-04-02] MEDS: Magnesium Hydrox/Alum Hydrox 30 ML ORAL.SUSP PO (22:30)
[2024-04-02 23:19] LABS: Glucose, Whole Blood 94 mg/dL (60-115)
[2024-04-03] VITALS (24 sets, daily range): BP systolic 95–154; BP diastolic 59–90; PULSE 59–86; RESP 10–20; TEMP 36.1–36.9; O2SAT 91–99; BMI 32.8; BMI 32.4
[2024-04-03 00:10] LABS: Glucose, Whole Blood 92 mg/dL (60-115)
[2024-04-03 01:10] LABS: Glucose, Whole Blood 102 mg/dL (60-115)
[2024-04-03] MEDS: HYDROmorphone HCl 0.5 MG/0.5 ML SYRINGE IVPUSH ×4 (01:19→19:19)
[2024-04-03] MEDS: QUEtiapine Fumarate 50 MG TABLET PO (01:20)
[2024-04-03 01:58] LABS: Alanine Aminotransferase 20 U/L (0-40); Albumin Level 3.4 g/dL (3.5-5.0); Alkaline Phosphatase 66 U/L (39-117); Anion Gap 15 (12-20); Aspartate Amino Transferase 21 U/L (5-37); Bilirubin Total 0.3 mg/dL (0.0-1.0); Blood Urea Nitrogen 6 mg/dL (9-16); Calcium 9.2 mg/dL (8.4-10.2); Carbon Dioxide 20 mmol/L (22-29); Chloride 110 mmol/L (96-108); Creatinine Clr Calc Pharmacy 60.1; Estimated Glomerular Filt Rate 52; Glucose Random 105 mg/dL (60-115); Sodium 141 mmol/L (135-145); Total Protein 5.7 g/dL (6.5-8.0); Troponin-I High Sensitivity 3.8 ng/L (<3.5-35.0)
[2024-04-03 02:09] LABS: Glucose, Whole Blood 107 mg/dL (60-115)
[2024-04-03 03:09] LABS: Glucose, Whole Blood 108 mg/dL (60-115)
[2024-04-03 04:28] LABS: Glucose, Whole Blood 111 mg/dL (60-115)
[2024-04-03] MEDS: Dextrose 5 % and Lactated Ring 1,000 ML 150 ML IVCONT ×2 (04:33→10:59)
[2024-04-03 05:11] LABS: Glucose, Whole Blood 118 mg/dL (60-115)
[2024-04-03 06:09] LABS: Glucose, Whole Blood 102 mg/dL (60-115)
[2024-04-03] MEDS: Pantoprazole Sodium 40 MG/10 ML VIAL IVPUSH (06:33)
[2024-04-03 06:45] LABS: Alanine Aminotransferase 17 U/L (0-40); Albumin Level 3.2 g/dL (3.5-5.0); Alkaline Phosphatase 68 U/L (39-117); Anion Gap 14 (12-20); Aspartate Amino Transferase 20 U/L (5-37); Bilirubin Total 0.3 mg/dL (0.0-1.0); Blood Urea Nitrogen 5 mg/dL (9-16); Calcium 8.6 mg/dL (8.4-10.2); Carbon Dioxide 22 mmol/L (22-29); Chloride 109 mmol/L (96-108); Creatinine Clr Calc Pharmacy 78.4; Estimated Glomerular Filt Rate > 60; Glucose Random 111 mg/dL (60-115); Magnesium 1.7 mg/dL (1.6-2.6); Phosphorus 2.7 mg/dL (2.7-4.5); Potassium 3.8 mmol/L (3.3-5.1); Sodium 141 mmol/L (135-145); Total Protein 5.5 g/dL (6.5-8.0)
[2024-04-03 07:18] LABS: Glucose, Whole Blood 106 mg/dL (60-115)
[2024-04-03 07:32] LABS: Basophils Percent Auto 0.4 % (0-2); Eosinophils Percent Auto 0.4 % (0-4); Hematocrit 37.3 % (42.0-52.0); Hemoglobin 13.1 g/dl (14.0-18.0); Imm Gran Abs Auto 0.03 X10*3/uL (0.00-0.03); Imm Gran Pct Auto 0.4 % (0.0-0.4); Lymphocytes Absolute Auto 1.4 X10*3/uL (1.2-4.9); Lymphocytes Percent Auto 18.2 % (20-40); Mean Corpuscular HGB Conc 35.1 g/dl (31.0-36.0); Mean Corpuscular Hemoglobin 32.9 pg (27.0-33.0); Mean Corpuscular Volume 93.7 fL (80.0-98.0); Mean Platelet Volume 9.6 fL (9.4-12.4); Monocytes Absolute Auto 0.7 X10*3/uL (0.1-1.2); Monocytes Percent Auto 9.4 % (2-11); Neutrophils Absolute Auto 5.5 x10*3/uL (2.0-8.3); Neutrophils Percent Auto 71.2 % (45-73); Platelet Count 167 X10*3/uL (160-400); Red Blood Count 3.98 X10*6/uL (4.60-5.80); Red Cell Distribution Width 14.1 % (11.0-16.0); White Blood Count 7.7 X10*3/uL (4.8-10.8)
[2024-04-03 07:46] LABS: MANUAL DIFF FLAG NO
[2024-04-03 08:14] LABS: Glucose, Whole Blood 97 mg/dL (60-115)
[2024-04-03] MEDS: Sucralfate Oral Suspension 1 GM/10 ML ORAL.SUSP PO ×3 (08:31→21:29)
[2024-04-03] MEDS: Nicotine 14 MG PATCH.TD24 TRANSDERMA (08:32)
[2024-04-03] MEDS: Heparin Sodium,Porcine 5,000 UNIT/ML VIAL 5000 UNIT SUBCUT ×2 (08:32→21:29)
[2024-04-03] MEDS: Metoprolol Tartrate 12.5 MG HALFTAB PO ×2 (08:33→21:29)
[2024-04-03] MEDS: Aspirin 81 MG TAB.CHEW PO (08:34)
[2024-04-03 09:15] LABS: Glucose, Whole Blood 107 mg/dL (60-115)
--- NOTE | 2024-04-03 09:23 | P.PNCC_ITS ---
Subjective Subjective Date of Service: 04/03/24 Critical Care Time (minutes): 60 Physical Exam 2 Vital Signs: Vital Signs: Last Vital Signs Temp 98.0 F 04/03/24 08:00 Pulse 81 04/03/24 08:00 Resp 11 L 04/03/24 08:00 BP 121/59 L 04/03/24 08:00 Pulse Ox 98 04/03/24 08:00 O2 Del Method Room Air 04/03/24 08:00 O2 Flow Rate 2 04/03/24 05:00 BMI result Body Mass Index 32.8 Const: General: cooperative, healthy appearing, comfortable, no acute distress, well developed, alert, awake, Physically active and acute distress Orientation/consciousness: patient oriented x3 HEENT: Head: Yes normal to inspection, Yes normocephalic and Yes atraumatic Eyes: General: appearance normal, both eyes and all related structures Neck: Neck: Yes normal visual inspection, Yes full ROM, Yes no meningeal signs, Yes trachea midline and Yes supple Chest: Chest palpation & inspection: normal inspection of the chest Resp: Other: no appreciable rales, rhonchi, wheezing Effort & Inspection: normal respiratory effort Cardio: Rate: regular rate Rhythm: regular rhythm GI: Inspection: Yes normal to inspection, No Abdominal wall edema and No distended Palpation (GI): Soft to palpation, not firm, nontender, no guarding and not rigid Skin: General skin exam: no rashes or lesions noted Neuro: General: patient oriented x3, tone normal, moves all extremities, no meningeal signs and no focal motor deficits Extrem: General: Yes normal to inspection, Yes full ROM, Yes capillary refill normal and Yes no clubbing, cyanosis or edema Psych: Appearance: grossly normal Objective Data Labs 04/03/24 07:20 04/03/24 06:03 Labs: Laboratory Results - last 24 hr 04/02/24 04/02/24 04/02/24 08:58 11:39 12:59 WBC RBC Hgb Hct MCV MCH MCHC RDW Plt Count MPV Immature Gran % (Auto) Neut % (Auto) Lymph % (Auto) [place] % (Auto) Eos % (Auto) Baso % (Auto) Lymph # (Auto) [place] # (Auto) Eos # (Auto) Baso # (Auto) Abs Immat Gran (auto) Absolute Neuts (auto) Absolute Nucleated RBC Nucleated RBC % (auto) Sodium 142 Potassium 4.0 Chloride 104 Carbon Dioxide 21 L Anion Gap 21 H BUN 10 Creatinine 1.51 H Estim Creat Clear Calc 54.9 Estimated GFR 47 POC Glucose 142 H 125 H Random Glucose 94 Calcium 9.4 Phosphorus Magnesium Total Bilirubin AST ALT Alkaline Phosphatase Troponin I High Sens Total Protein Albumin 04/02/24 04/02/24 04/02/24 13:10 14:45 15:18 WBC RBC Hgb Hct MCV MCH MCHC RDW Plt Count MPV Immature Gran % (Auto) Neut % (Auto) Lymph % (Auto) [place] % (Auto) Eos % (Auto) Baso % (Auto) Lymph # (Auto) [place] # (Auto) Eos # (Auto) Baso # (Auto) Abs Immat Gran (auto) Absolute Neuts (auto) Absolute Nucleated RBC Nucleated RBC % (auto) Sodium Potassium Chloride Carbon Dioxide Anion Gap BUN Creatinine Estim Creat Clear Calc Estimated GFR POC Glucose 102 101 Random Glucose Calcium Phosphorus Magnesium Total Bilirubin AST ALT Alkaline Phosphatase Troponin I High Sens 5.4 Total Protein Albumin 04/02/24 04/02/24 04/02/24 16:09 16:24 17:10 WBC RBC Hgb Hct MCV MCH MCHC RDW Plt Count MPV Immature Gran % (Auto) Neut % (Auto) Lymph % (Auto) [place] % (Auto) Eos % (Auto) Baso % (Auto) Lymph # (Auto) [place] # (Auto) Eos # (Auto) Baso # (Auto) Abs Immat Gran (auto) Absolute Neuts (auto) Absolute Nucleated RBC Nucleated RBC % (auto) Sodium 142 Potassium 3.6 Chloride 107 Carbon Dioxide 22 Anion Gap 17 BUN 8 L Creatinine 1.40 Estim Creat Clear Calc 59.2 Estimated GFR 51 POC Glucose 116 H 114 Random Glucose 110 Calcium 9.0 Phosphorus Magnesium Total Bilirubin AST ALT Alkaline Phosphatase Troponin I High Sens Total Protein Albumin 04/02/24 04/02/24 04/02/24 18:16 19:01 20:01 WBC RBC Hgb Hct MCV MCH MCHC RDW Plt Count MPV Immature Gran % (Auto) Neut % (Auto) Lymph % (Auto) [place] % (Auto) Eos % (Auto) Baso % (Auto) Lymph # (Auto) [place] # (Auto) Eos # (Auto) Baso # (Auto) Abs Immat Gran (auto) Absolute Neuts (auto) Absolute Nucleated RBC Nucleated RBC % (auto) Sodium Potassium Chloride Carbon Dioxide Anion Gap BUN Creatinine Estim Creat Clear Calc Estimated GFR POC Glucose 120 H 111 112 Random Glucose Calcium Phosphorus Magnesium Total Bilirubin AST ALT Alkaline Phosphatase Troponin I High Sens Total Protein Albumin 04/02/24 04/02/24 04/02/24 20:25 21:03 22:04 WBC RBC Hgb Hct MCV MCH MCHC RDW Plt Count MPV Immature Gran % (Auto) Neut % (Auto) Lymph % (Auto) [place] % (Auto) Eos % (Auto) Baso % (Auto) Lymph # (Auto) [place] # (Auto) Eos # (Auto) Baso # (Auto) Abs Immat Gran (auto) Absolute Neuts (auto) Absolute Nucleated RBC Nucleated RBC % (auto) Sodium 141 Potassium 3.7 Chloride 108 Carbon Dioxide 21 L Anion Gap 16 BUN 7 L Creatinine 1.37 Estim Creat Clear Calc 60.5 Estimated GFR 52 POC Glucose 142 H 109 Random Glucose 124 H Calcium 9.1 Phosphorus 2.0 L Magnesium Total Bilirubin 0.3 AST 19 ALT 19 Alkaline Phosphatase 71 Troponin I High Sens 5.2 Total Protein 5.9 L Albumin 3.5 04/02/24 04/03/24 04/03/24 23:16 00:06 01:06 WBC RBC Hgb Hct MCV MCH MCHC RDW Plt Count MPV Immature Gran % (Auto) Neut % (Auto) Lymph % (Auto) [place] % (Auto) Eos % (Auto) Baso % (Auto) Lymph # (Auto) [place] # (Auto) Eos # (Auto) Baso # (Auto) Abs Immat Gran (auto) Absolute Neuts (auto) Absolute Nucleated RBC Nucleated RBC % (auto) Sodium Potassium Chloride Carbon Dioxide Anion Gap BUN Creatinine Estim Creat Clear Calc Estimated GFR POC Glucose 94 92 102 Random Glucose Calcium Phosphorus Magnesium Total Bilirubin AST ALT Alkaline Phosphatase Troponin I High Sens Total Protein Albumin 04/03/24 04/03/24 04/03/24 01:22 02:05 03:05 WBC RBC Hgb Hct MCV MCH MCHC RDW Plt Count MPV Immature Gran % (Auto) Neut % (Auto) Lymph % (Auto) [place] % (Auto) Eos % (Auto) Baso % (Auto) Lymph # (Auto) [place] # (Auto) Eos # (Auto) Baso # (Auto) Abs Immat Gran (auto) Absolute Neuts (auto) Absolute Nucleated RBC Nucleated RBC % (auto) Sodium 141 Potassium 4.0 Chloride 110 H Carbon Dioxide 20 L Anion Gap 15 BUN 6 L Creatinine 1.38 Estim Creat Clear Calc 60.1 Estimated GFR 52 POC Glucose 107 108 Random Glucose 105 Calcium 9.2 Phosphorus Magnesium Total Bilirubin 0.3 AST 21 ALT 20 Alkaline Phosphatase 66 Troponin I High Sens 3.8 Total Protein 5.7 L Albumin 3.4 L 04/03/24 04/03/24 04/03/24 04:24 05:06 06:03 WBC RBC Hgb Hct MCV MCH MCHC RDW Plt Count MPV Immature Gran % (Auto) Neut % (Auto) Lymph % (Auto) [place] % (Auto) Eos % (Auto) Baso % (Auto) Lymph # (Auto) [place] # (Auto) Eos # (Auto) Baso # (Auto) Abs Immat Gran (auto) Absolute Neuts (auto) Absolute Nucleated RBC Nucleated RBC % (auto) Sodium 141 Potassium 3.8 Chloride 109 H Carbon Dioxide 22 Anion Gap 14 BUN 5 L Creatinine 1.08 Estim Creat Clear Calc 78.4 Estimated GFR > 60 POC Glucose 111 118 H Random Glucose 111 Calcium 8.6 D Phosphorus 2.7 Magnesium 1.7 Total Bilirubin 0.3 AST 20 ALT 17 Alkaline Phosphatase 68 Troponin I High Sens Total Protein 5.5 L Albumin 3.2 L 04/03/24 04/03/24 04/03/24 06:06 07:14 07:20 WBC 7.7 RBC 3.98 L Hgb 13.1 L Hct 37.3 L MCV 93.7 MCH 32.9 MCHC 35.1 RDW 14.1 Plt Count 167 D MPV 9.6 Immature Gran % (Auto) 0.4 Neut % (Auto) 71.2 Lymph % (Auto) 18.2 L [place] % (Auto) 9.4 Eos % (Auto) 0.4 Baso % (Auto) 0.4 Lymph # (Auto) 1.4 [place] # (Auto) 0.7 Eos # (Auto) 0.0 Baso # (Auto) 0.0 Abs Immat Gran (auto) 0.03 Absolute Neuts (auto) 5.5 Absolute Nucleated RBC 0.000 Nucleated RBC % (auto) 0.0 Sodium Potassium Chloride Carbon Dioxide Anion Gap BUN Creatinine Estim Creat Clear Calc Estimated GFR POC Glucose 102 106 Random Glucose Calcium Phosphorus Magnesium Total Bilirubin AST ALT Alkaline Phosphatase Troponin I High Sens Total Protein Albumin 04/03/24 04/03/24 08:08 09:10 WBC RBC Hgb Hct MCV MCH MCHC RDW Plt Count MPV Immature Gran % (Auto) Neut % (Auto) Lymph % (Auto) [place] % (Auto) Eos % (Auto) Baso % (Auto) Lymph # (Auto) [place] # (Auto) Eos # (Auto) Baso # (Auto) Abs Immat Gran (auto) Absolute Neuts (auto) Absolute Nucleated RBC Nucleated RBC % (auto) Sodium Potassium Chloride Carbon Dioxide Anion Gap BUN Creatinine Estim Creat Clear Calc Estimated GFR POC Glucose 97 107 Random Glucose Calcium Phosphorus Magnesium Total Bilirubin AST ALT Alkaline Phosphatase Troponin I High Sens Total Protein Albumin Microbiology Microbiology Results: Microbiology 04/01/24 16:24 Blood - Venous Blood Culture - Preliminary No growth after 24 hours. 04/01/24 16:22 Blood - Venous Blood Culture - Preliminary No growth after 24 hours. Progress Note: A&P Assessment and plan (1) DKA (diabetic ketoacidosis): Status: Acute Plan Patient is a 63 Y M with hypertension, diabetes mellitus, c/b coronary artery disease s/p stent, initially presenting to emergency department on 04/01 w/ nausea/vomiting, found to be in euglycemic DKA N: no acute issues CV: no acute issues R: no acute issues GI: NPO while on DKA protocol : acute on chronic renal insufficiency, likely d/t dehydration improving H: no acute issues ID: no acute issues E: DKA, on DKA protocol P: no acute issues Quality Stroke Does the patient have a stroke diagnosis?: No VTE Prior VTE?: No VTE Risk Level:: Medical - moderate - high VTE Device Contraindication: N/A - Device Ordered VTE Drug Contraindication: N/A - Med Ordered
[2024-04-03 10:13] LABS: Glucose, Whole Blood 94 mg/dL (60-115)
[2024-04-03 11:07] LABS: Glucose, Whole Blood 85 mg/dL (60-115)
[2024-04-03 11:59] LABS: Glucose, Whole Blood 107 mg/dL (60-115)
[2024-04-03 12:53] LABS: Glucose, Whole Blood 108 mg/dL (60-115)
[2024-04-03 14:08] LABS: Glucose, Whole Blood 111 mg/dL (60-115)
[2024-04-03] MEDS: ondansetron HCL 4 MG/2 ML VIAL IVPUSH (14:34)
[2024-04-03] MEDS: Calcium Carbonate 750 MG TAB.CHEW PO (14:34)
[2024-04-03 14:40] LABS: Anion Gap 12 (12-20); Blood Urea Nitrogen 4 mg/dL (9-16); Calcium 8.9 mg/dL (8.4-10.2); Carbon Dioxide 22 mmol/L (22-29); Chloride 109 mmol/L (96-108); Creatinine Clr Calc Pharmacy 72.3; Estimated Glomerular Filt Rate > 60; Glucose Random 108 mg/dL (60-115); Magnesium 1.6 mg/dL (1.6-2.6); Phosphorus 2.6 mg/dL (2.7-4.5); Potassium 3.4 mmol/L (3.3-5.1); Sodium 140 mmol/L (135-145)
--- NOTE | 2024-04-03 14:57 | MHC.CM.PN ---
IMM 04/03/24, EMR REVIEWED, PT IN ICU W/DKA, PT A&O AND REPORTS HE LIVES ALONE, REPORTS HE IS INDEP AND CHECKS HIS BS'S 3-4XDAY HOWEVER APPEARS TO BE NONCOMPLIANT HE WAS ADMITTED FOR DKA. PT DENIES HOME SERVICES HOWEVER IS OPEN TO VNA SERVICES AND VNA REF PLACED TO [facility]. PT UNABLE TO RECALL NAME OF NEW PCP DR MILLER RETIRED HOWEVER DOES REPORT PCP IS AT [place], [place]
[2024-04-03 15:06] LABS: Glucose, Whole Blood 109 mg/dL (60-115)
[2024-04-03] MEDS: Potassium Phosphate/NS 15 MMOL/250 ML PLAST..BAG 62.5 MMOL IV (15:14)
[2024-04-03] MEDS: Insulin Glargine,Hum.rec.anlog 100 UNIT/ML 10 ML VIAL 18 UNIT SUBCUT (15:32)
[2024-04-03 16:22] LABS: Glucose, Whole Blood 128 mg/dL (60-115)
[2024-04-03 16:23] LABS: Anion Gap 12 (12-20); Blood Urea Nitrogen 4 mg/dL (9-16); Calcium 9.2 mg/dL (8.4-10.2); Carbon Dioxide 22 mmol/L (22-29); Chloride 110 mmol/L (96-108); Creatinine Clr Calc Pharmacy 71.7; Estimated Glomerular Filt Rate > 60; Glucose Random 122 mg/dL (60-115); Magnesium 1.6 mg/dL (1.6-2.6); Phosphorus 3.1 mg/dL (2.7-4.5); Potassium 3.8 mmol/L (3.3-5.1); Sodium 140 mmol/L (135-145)
--- NOTE | 2024-04-03 21:01 | PC.NURSE ---
HR 170s on tele about 30 seconds Rn and CONCRETE ANALYST to bedside, pt resting on his side eyes closed offers no complaints at this time. rhythm returned to SR. VSS
[2024-04-03 21:24] LABS: Glucose, Whole Blood 86 mg/dL (60-115)
[2024-04-04] VITALS (16 sets, daily range): BP systolic 91–146; BP diastolic 51–78; PULSE 62–91; RESP 13–21; TEMP 36.2–36.9; O2SAT 92–100; BMI 32.2
[2024-04-04 05:18] LABS: MANUAL DIFF FLAG NO
[2024-04-04 05:32] LABS: Basophils Percent Auto 0.3 % (0-2); Eosinophils Absolute Auto 0.1 X10*3/uL (0.0-0.4); Eosinophils Percent Auto 0.9 % (0-4); Imm Gran Abs Auto 0.02 X10*3/uL (0.00-0.03); Imm Gran Pct Auto 0.3 % (0.0-0.4); Lymphocytes Absolute Auto 1.6 X10*3/uL (1.2-4.9); Lymphocytes Percent Auto 28.1 % (20-40); Mean Corpuscular HGB Conc 34.2 g/dl (31.0-36.0); Mean Corpuscular Hemoglobin 32.5 pg (27.0-33.0); Mean Platelet Volume 10.1 fL (9.4-12.4); Monocytes Absolute Auto 0.6 X10*3/uL (0.1-1.2); Monocytes Percent Auto 10.7 % (2-11); Neutrophils Absolute Auto 3.4 x10*3/uL (2.0-8.3); Neutrophils Percent Auto 59.7 % (45-73); Platelet Count 168 X10*3/uL (160-400); Red Cell Distribution Width 13.9 % (11.0-16.0); White Blood Count 5.7 X10*3/uL (4.8-10.8)
[2024-04-04 05:33] LABS: Anion Gap 12 (12-20); Blood Urea Nitrogen 3 mg/dL (9-16); Calcium 8.8 mg/dL (8.4-10.2); Carbon Dioxide 25 mmol/L (22-29); Chloride 108 mmol/L (96-108); Creatinine Clr Calc Pharmacy 83.2; Estimated Glomerular Filt Rate > 60; Glucose Random 72 mg/dL (60-115); Magnesium 1.6 mg/dL (1.6-2.6); Phosphorus 3.7 mg/dL (2.7-4.5); Potassium 3.3 mmol/L (3.3-5.1); Sodium 142 mmol/L (135-145)
[2024-04-04] MEDS: Pantoprazole Sodium 40 MG/10 ML VIAL IVPUSH (05:42)
[2024-04-04] MEDS: Potassium Chloride Packet 20 MEQ PACKET 40 MEQ PO (06:13)
[2024-04-04] MEDS: Magnesium Sulfate/D5W 1 GM/100 ML PIGGYBACK IV (06:15)
[2024-04-04] MEDS: HYDROmorphone HCl 0.5 MG/0.5 ML SYRINGE IVPUSH ×4 (06:17→19:29)
[2024-04-04 07:37] LABS: Glucose, Whole Blood 91 mg/dL (60-115)
[2024-04-04] MEDS: Sucralfate Oral Suspension 1 GM/10 ML ORAL.SUSP PO ×4 (07:58→20:13)
--- NOTE | 2024-04-04 07:58 | P.PNCC_ITS ---
Subjective Subjective Date of Service: 04/04/24 Interval History: no significant overnight events Critical Care Time (minutes): 0 Physical Exam 2 Vital Signs: Vital Signs: Last Vital Signs Temp 98.5 F 04/04/24 04:00 Pulse 70 04/04/24 07:00 Resp 18 04/04/24 07:00 BP 119/61 04/04/24 07:00 Pulse Ox 98 04/04/24 07:00 O2 Del Method Room Air 04/04/24 07:00 O2 Flow Rate 2 04/04/24 06:00 BMI result Body Mass Index 32.2 Const: General: cooperative, comfortable, no acute distress, well developed, alert, awake and Physically active Orientation/consciousness: patient oriented x3 HEENT: Head: Yes normal to inspection, Yes No palpable skull fracture present, Yes normocephalic and Yes atraumatic Eyes: General: appearance normal, both eyes and all related structures Neck: Neck: Yes normal visual inspection, Yes full ROM, Yes no meningeal signs, Yes trachea midline and Yes supple Chest: Chest palpation & inspection: normal inspection of the chest Resp: Other: no appreciable rales, rhonchi, wheezing Effort & Inspection: normal respiratory effort Cardio: Rate: regular rate Rhythm: regular rhythm GI: Inspection: Yes normal to inspection, No Abdominal wall edema and No distended Palpation (GI): Soft to palpation, not firm, nontender, no guarding and not rigid Skin: General skin exam: no rashes or lesions noted Neuro: General: patient oriented x3, moves all extremities, no meningeal signs and no focal motor deficits Extrem: General: Yes normal to inspection, Yes full ROM, Yes capillary refill normal and Yes no clubbing, cyanosis or edema Psych: Appearance: grossly normal Objective Data Labs 04/04/24 04:55 04/04/24 04:55 Labs: Laboratory Results - last 24 hr 04/03/24 04/03/24 04/03/24 08:08 09:10 10:09 WBC RBC Hgb Hct MCV MCH MCHC RDW Plt Count MPV Immature Gran % (Auto) Neut % (Auto) Lymph % (Auto) [place] % (Auto) Eos % (Auto) Baso % (Auto) Lymph # (Auto) [place] # (Auto) Eos # (Auto) Baso # (Auto) Abs Immat Gran (auto) Absolute Neuts (auto) Absolute Nucleated RBC Nucleated RBC % (auto) Sodium Potassium Chloride Carbon Dioxide Anion Gap BUN Creatinine Estim Creat Clear Calc Estimated GFR POC Glucose 97 107 94 Random Glucose Calcium Phosphorus Magnesium 04/03/24 04/03/24 04/03/24 11:03 11:48 12:50 WBC RBC Hgb Hct MCV MCH MCHC RDW Plt Count MPV Immature Gran % (Auto) Neut % (Auto) Lymph % (Auto) [place] % (Auto) Eos % (Auto) Baso % (Auto) Lymph # (Auto) [place] # (Auto) Eos # (Auto) Baso # (Auto) Abs Immat Gran (auto) Absolute Neuts (auto) Absolute Nucleated RBC Nucleated RBC % (auto) Sodium Potassium Chloride Carbon Dioxide Anion Gap BUN Creatinine Estim Creat Clear Calc Estimated GFR POC Glucose 85 107 108 Random Glucose Calcium Phosphorus Magnesium 04/03/24 04/03/24 04/03/24 13:47 14:04 15:02 WBC RBC Hgb Hct MCV MCH MCHC RDW Plt Count MPV Immature Gran % (Auto) Neut % (Auto) Lymph % (Auto) [place] % (Auto) Eos % (Auto) Baso % (Auto) Lymph # (Auto) [place] # (Auto) Eos # (Auto) Baso # (Auto) Abs Immat Gran (auto) Absolute Neuts (auto) Absolute Nucleated RBC Nucleated RBC % (auto) Sodium 140 Potassium 3.4 Chloride 109 H Carbon Dioxide 22 Anion Gap 12 BUN 4 L Creatinine 1.17 Estim Creat Clear Calc 72.3 Estimated GFR > 60 POC Glucose 111 109 Random Glucose 108 Calcium 8.9 Phosphorus 2.6 L Magnesium 1.6 04/03/24 04/03/24 04/03/24 15:58 16:19 21:20 WBC RBC Hgb Hct MCV MCH MCHC RDW Plt Count MPV Immature Gran % (Auto) Neut % (Auto) Lymph % (Auto) [place] % (Auto) Eos % (Auto) Baso % (Auto) Lymph # (Auto) [place] # (Auto) Eos # (Auto) Baso # (Auto) Abs Immat Gran (auto) Absolute Neuts (auto) Absolute Nucleated RBC Nucleated RBC % (auto) Sodium 140 Potassium 3.8 Chloride 110 H Carbon Dioxide 22 Anion Gap 12 BUN 4 L Creatinine 1.18 Estim Creat Clear Calc 71.7 Estimated GFR > 60 POC Glucose 128 H 86 Random Glucose 122 H Calcium 9.2 Phosphorus 3.1 Magnesium 1.6 04/04/24 04/04/24 04:55 07:34 WBC 5.7 RBC 4.00 L Hgb 13.0 L Hct 38.0 L MCV 95.0 MCH 32.5 MCHC 34.2 RDW 13.9 Plt Count 168 MPV 10.1 Immature Gran % (Auto) 0.3 Neut % (Auto) 59.7 Lymph % (Auto) 28.1 [place] % (Auto) 10.7 Eos % (Auto) 0.9 Baso % (Auto) 0.3 Lymph # (Auto) 1.6 [place] # (Auto) 0.6 Eos # (Auto) 0.1 Baso # (Auto) 0.0 Abs Immat Gran (auto) 0.02 Absolute Neuts (auto) 3.4 Absolute Nucleated RBC 0.000 Nucleated RBC % (auto) 0.0 Sodium 142 Potassium 3.3 Chloride 108 Carbon Dioxide 25 Anion Gap 12 BUN 3 L Creatinine 1.01 Estim Creat Clear Calc 83.2 Estimated GFR > 60 POC Glucose 91 Random Glucose 72 Calcium 8.8 Phosphorus 3.7 Magnesium 1.6 Microbiology Microbiology Results: Microbiology 04/01/24 16:24 Blood - Venous Blood Culture - Preliminary No growth after 48 hours. 04/01/24 16:22 Blood - Venous Blood Culture - Preliminary No growth after 48 hours. Progress Note: A&P Assessment and plan (1) DKA (diabetic ketoacidosis): Status: Acute Plan Patient is a 63 Y M with hypertension, diabetes mellitus, c/b coronary artery disease s/p stent, initially presenting to emergency department on 04/01 w/ nausea/vomiting, found to be in euglycemic DKA N: no acute issues CV: no acute issues R: no acute issues GI: diabetic diet : acute on chronic renal insufficiency, likely d/t dehydration improving H: no acute issues ID: no acute issues E: DKA, s/p DKA protocol P: no acute issues Quality Stroke Does the patient have a stroke diagnosis?: No VTE Prior VTE?: No VTE Risk Level:: Medical - moderate - high VTE Device Contraindication: N/A - Device Ordered VTE Drug Contraindication: N/A - Med Ordered
[2024-04-04] MEDS: Metoprolol Tartrate 12.5 MG HALFTAB PO ×2 (07:59→20:13)
[2024-04-04] MEDS: Aspirin 81 MG TAB.CHEW PO (07:59)
[2024-04-04] MEDS: Atorvastatin Calcium 80 MG TABLET PO (07:59)
[2024-04-04] MEDS: Nicotine 14 MG PATCH.TD24 TRANSDERMA (08:00)
[2024-04-04] MEDS: Heparin Sodium,Porcine 5,000 UNIT/ML VIAL 5000 UNIT SUBCUT ×2 (08:00→20:13)
--- NOTE | 2024-04-04 09:36 | P.CDIM_ITS ---
PROVIDER RESPONSE TEXT: To clarify, the appropriate diagnosis supported by the clinical indicators: Acute on chronic renal insufficiency QUERY TEXT: PHYSICIAN'S DOCUMENTATION REQUEST Date of Query: 04/04/2024 08:19 AM EDT Patient Name: Jose Miguel Costa Admit Date: 04/01/2024 Dear Shahla Heath MD, A review of the medical record indicates additional documentation may be needed. Please review below and update the documentation accordingly. Clinical Indicators: ICU progress note dated 04/02 - Acute on chronic kidney disease Has underlying CKD, MONSE due to DKA Presented with creatinine of 2, right now down to 1.5 ICU progress note dated 04/03 - Acute on chronic renal insufficiency likely due to dehydration. Please clarify which of the following accurately represents the patient's renal status: Acute on chronic renal injury (failure) Acute on chronic renal insufficiency Other (explain) Clinically unable to determine (explain) Thank you, Rosaura Gil, CCS, CDIS Use of terms such as suspected, likely, concern for, or probable (associated with a specific diagnosi s that is being evaluated, monitored, or treated as if it exists) are acceptable and can be coded in the inpatient se tting, when documented at the time of discharge. Please use your independent medical judgment in providing your response. THIS QUERY IS PART OF THE PERMANENT MEDICAL RECORD
[2024-04-04 11:13] LABS: Glucose, Whole Blood 174 mg/dL (60-115)
[2024-04-04] MEDS: Insulin Lispro 100 UNIT/ML 3 ML VIAL SUBCUT (11:24)
--- NOTE | 2024-04-04 16:01 | PM.EVENT ---
Event Note Date of Service: 04/05/24 Event Note: Pt see/examined, transfered out of ICU following care for Euglycemia DKA d/t Jardiance, DKA resolved. Med rec reconciled. Would avoid SGLT2 inhibitors in the future. vital Time Spent With Patient Time: Total time managing care of this patient today ____ minutes.
[2024-04-04 16:03] LABS: Glucose, Whole Blood 115 mg/dL (60-115)
[2024-04-04] MEDS: Acetaminophen 325 MG TABLET 650 MG PO (19:29)
[2024-04-04] MEDS: Famotidine 20 MG TABLET PO (20:13)
[2024-04-04 20:48] LABS: Glucose, Whole Blood 136 mg/dL (60-115)
[2024-04-04] MEDS: QUEtiapine Fumarate 200 MG TABLET PO (22:30)
[2024-04-05] VITALS (7 sets, daily range): BP systolic 131–161; BP diastolic 61–93; PULSE 66–70; RESP 18–20; TEMP 36.2–36.8; O2SAT 96–98; BMI 30.6
[2024-04-05] MEDS: HYDROmorphone HCl 0.5 MG/0.5 ML SYRINGE IVPUSH ×3 (00:40→09:32)
[2024-04-05] MEDS: Pantoprazole Sodium 40 MG/10 ML VIAL IVPUSH (05:34)
[2024-04-05 06:58] LABS: MANUAL DIFF FLAG NO
[2024-04-05 07:06] LABS: Glucose, Whole Blood 105 mg/dL (60-115)
[2024-04-05 07:09] LABS: Basophils Percent Auto 0.4 % (0-2); Eosinophils Absolute Auto 0.1 X10*3/uL (0.0-0.4); Eosinophils Percent Auto 0.6 % (0-4); Hematocrit 40.6 % (42.0-52.0); Hemoglobin 13.8 g/dl (14.0-18.0); Imm Gran Abs Auto 0.03 X10*3/uL (0.00-0.03); Imm Gran Pct Auto 0.4 % (0.0-0.4); Lymphocytes Absolute Auto 1.5 X10*3/uL (1.2-4.9); Lymphocytes Percent Auto 19.5 % (20-40); Mean Corpuscular Hemoglobin 32.5 pg (27.0-33.0); Mean Corpuscular Volume 95.8 fL (80.0-98.0); Mean Platelet Volume 10.4 fL (9.4-12.4); Monocytes Absolute Auto 0.8 X10*3/uL (0.1-1.2); Monocytes Percent Auto 10.6 % (2-11); Neutrophils Absolute Auto 5.3 x10*3/uL (2.0-8.3); Neutrophils Percent Auto 68.5 % (45-73); Platelet Count 179 X10*3/uL (160-400); Red Blood Count 4.24 X10*6/uL (4.60-5.80); Red Cell Distribution Width 13.7 % (11.0-16.0); White Blood Count 7.8 X10*3/uL (4.8-10.8)
[2024-04-05 07:23] LABS: Anion Gap 14 (12-20); Blood Urea Nitrogen 5 mg/dL (9-16); Calcium 9.6 mg/dL (8.4-10.2); Carbon Dioxide 26 mmol/L (22-29); Chloride 105 mmol/L (96-108); Creatinine Clr Calc Pharmacy 75.8; Estimated Glomerular Filt Rate > 60; Glucose Random 104 mg/dL (60-115); Magnesium 1.9 mg/dL (1.6-2.6); Phosphorus 2.5 mg/dL (2.7-4.5); Potassium 3.9 mmol/L (3.3-5.1); Sodium 141 mmol/L (135-145)
[2024-04-05] MEDS: Famotidine 20 MG TABLET PO ×2 (08:18→21:39)
[2024-04-05] MEDS: Cholecalciferol (Vitamin D3) 25 MCG TABLET 50 MCG PO (08:18)
[2024-04-05] MEDS: Ezetimibe 10 MG TABLET PO (08:18)
[2024-04-05] MEDS: Aspirin 81 MG TAB.CHEW PO (08:18)
[2024-04-05] MEDS: Multivitamin TABLET 1 TAB PO (08:18)
[2024-04-05] MEDS: Sucralfate Oral Suspension 1 GM/10 ML ORAL.SUSP PO ×2 (08:18→13:18)
[2024-04-05] MEDS: Heparin Sodium,Porcine 5,000 UNIT/ML VIAL 5000 UNIT SUBCUT (08:19)
[2024-04-05] MEDS: Metoprolol Tartrate 12.5 MG HALFTAB PO ×2 (08:19→21:39)
[2024-04-05] MEDS: Fenofibrate 54 MG TABLET PO (08:19)
[2024-04-05] MEDS: amLODIPine Besylate 5 MG TABLET PO (08:19)
[2024-04-05] MEDS: Ascorbic Acid 250 MG TABLET PO (08:19)
[2024-04-05] MEDS: Nicotine 14 MG PATCH.TD24 TRANSDERMA (08:19)
[2024-04-05] MEDS: Atorvastatin Calcium 80 MG TABLET PO (08:19)
[2024-04-05 10:54] LABS: Glucose, Whole Blood 109 mg/dL (60-115)
[2024-04-05 15:28] LABS: Glucose, Whole Blood 129 mg/dL (60-115)
[2024-04-05] MEDS: oxyCODONE HCl Immed Release 5 MG TABLET PO (15:58)
--- NOTE | 2024-04-05 15:58 | P.PNIM_ITS ---
Subjective Subjective Date of Service: 04/05/24 Interval History: c/o epigastric pain blood sugar is fine, Physical Exam 2 Vital Signs: Vital Signs: Last Vital Signs Temp 98.2 F 04/05/24 15:32 Pulse 69 04/05/24 15:32 Resp 20 04/05/24 15:32 BP 142/61 H 04/05/24 15:32 Pulse Ox 98 04/05/24 15:32 O2 Del Method Room Air 04/05/24 15:32 O2 Flow Rate 2 04/04/24 06:00 BMI result Body Mass Index 30.6 General: AO X 3, no acute distress Resp: CTA bilateral CVS: S1,S2,RRR GI: +BS, NT, no distention Skin: No rash Neuro: motor grossly intact Psych: appropriate affect Objective Data Active Medications Acetaminophen (Acetaminophen 325 Mg Tablet) 650 mg PO Q6H PRN PRN Reason: Pain, Moderate(Pain Scale 4-6) Last Admin: 04/04/24 19:29 Dose: 650 mg Documented By: AURA Amlodipine Besylate (Amlodipine Besylate 5 Mg Tablet) 5 mg PO DAILY REPLACED BY [facility]; Protocol Last Admin: 04/05/24 08:19 Dose: 5 mg Documented By: JADE Ascorbic Acid (Ascorbic Acid 250 Mg Tablet) 250 mg PO DAILY REPLACED BY [facility] Last Admin: 04/05/24 08:19 Dose: 250 mg Documented By: JADE Aspirin (Aspirin 81 Mg Tab.Chew) 81 mg PO DAILY REPLACED BY [facility] Last Admin: 04/05/24 08:18 Dose: 81 mg Documented By: JADE Atorvastatin Calcium (Atorvastatin Calcium 80 Mg Tablet) 80 mg PO DAILY REPLACED BY [facility] Last Admin: 04/05/24 08:19 Dose: 80 mg Documented By: JADE Calcium Carbonate (Calcium Carbonate 750 Mg Tab.Chew) 750 mg PO Q4H PRN PRN Reason: Heartburn Last Admin: 04/03/24 14:34 Dose: 750 mg Documented By: MAURY Ezetimibe (Ezetimibe 10 Mg Tablet) 10 mg PO DAILY REPLACED BY [facility] Last Admin: 04/05/24 08:18 Dose: 10 mg Documented By: JADE Famotidine (Famotidine 20 Mg Tablet) 20 mg PO BID REPLACED BY [facility] Last Admin: 04/05/24 08:18 Dose: 20 mg Documented By: JADE Fenofibrate (Fenofibrate 54 Mg Tablet) 54 mg PO DAILY REPLACED BY [facility] Last Admin: 04/05/24 08:19 Dose: 54 mg Documented By: JADE Glucose (Glucose Gel 15 Gm Gel..Gram.) 15 gm PO Q15M PRN; Protocol PRN Reason: per Hypoglycemia Standing Ord. Heparin Sodium (Porcine) (Heparin Sodium,Porcine 5,000 Unit/Ml Vial) 5,000 unit SUBCUT Q12H REPLACED BY [facility] Last Admin: 04/05/24 08:19 Dose: 5,000 unit Documented By: JADE Dextrose (D10) 250 mls @ 750 mls/hr IV Q15M PRN; Protocol PRN Reason: per Hypoglycemia Standing Ord. Insulin Human Lispro (Insulin Lispro 100 Unit/Ml 3 Ml Vial) 0 unit SUBCUT QIDACHS REPLACED BY [facility]; Protocol Last Admin: 04/05/24 11:50 Dose: Not Given Documented By: JADE Non-Admin Reason: No Insulin Coverage Metoprolol Tartrate (Metoprolol Tartrate 12.5 Mg Halftab) 12.5 mg PO BID REPLACED BY [facility]; Protocol Last Admin: 04/05/24 08:19 Dose: 12.5 mg Documented By: JADE Multivitamins/Vitamin C (Multivitamin Tablet) 1 tab PO DAILY REPLACED BY [facility] Last Admin: 04/05/24 08:18 Dose: 1 tab Documented By: JADE Nicotine (Nicotine 14 Mg Patch.Td24) 14 mg TRANSDERMA DAILY REPLACED BY [facility] Last Admin: 04/05/24 08:19 Dose: 14 mg Documented By: JADE Ondansetron HCl (Ondansetron Hcl 4 Mg/2 Ml Vial) 4 mg IVPUSH Q8H PRN PRN Reason: Nausea and Vomiting Last Admin: 04/03/24 14:34 Dose: 4 mg Documented By: ARMSTRTomas Oxycodone HCl (Oxycodone Hcl Immed Release 5 Mg Tablet) 5 mg PO Q6H PRN PRN Reason: Pain, Severe (Pain Scale 7-10) Quetiapine Fumarate (Quetiapine Fumarate 200 Mg Tablet) 200 mg PO BEDTIME REPLACED BY [facility] Last Admin: 04/04/24 22:30 Dose: 200 mg Documented By: AURA Sucralfate (Sucralfate Oral Suspension 1 Gm/10 Ml Oral.Susp) 1 gm PO QIDACHS REPLACED BY [facility] Last Admin: 04/05/24 13:18 Dose: 1 gm Documented By: JADE Vitamin D (Cholecalciferol (Vitamin D3) 25 Mcg Tablet) 50 mcg PO DAILY REPLACED BY [facility] Last Admin: 04/05/24 08:18 Dose: 50 mcg Documented By: JADE Labs 04/05/24 05:56 04/05/24 05:56 Labs: Laboratory Results - last 24 hr 04/04/24 04/04/24 04/05/24 15:56 20:45 05:56 MCV 95.8 MCH 32.5 MCHC 34.0 RDW 13.7 Plt Count 179 MPV 10.4 Immature Gran % (Auto) 0.4 Neut % (Auto) 68.5 Lymph % (Auto) 19.5 L [place] % (Auto) 10.6 Eos % (Auto) 0.6 Baso % (Auto) 0.4 Lymph # (Auto) 1.5 [place] # (Auto) 0.8 Eos # (Auto) 0.1 Baso # (Auto) 0.0 Abs Immat Gran (auto) 0.03 Absolute Neuts (auto) 5.3 Absolute Nucleated RBC 0.000 Nucleated RBC % (auto) 0.0 Anion Gap 14 Estim Creat Clear Calc 75.8 Estimated GFR > 60 POC Glucose 115 136 H Random Glucose 104 Calcium 9.6 D Phosphorus 2.5 L Magnesium 1.9 04/05/24 04/05/24 04/05/24 07:01 10:50 15:23 MCV MCH MCHC RDW Plt Count MPV Immature Gran % (Auto) Neut % (Auto) Lymph % (Auto) [place] % (Auto) Eos % (Auto) Baso % (Auto) Lymph # (Auto) [place] # (Auto) Eos # (Auto) Baso # (Auto) Abs Immat Gran (auto) Absolute Neuts (auto) Absolute Nucleated RBC Nucleated RBC % (auto) Anion Gap Estim Creat Clear Calc Estimated GFR POC Glucose 105 109 129 H Random Glucose Calcium Phosphorus Magnesium Assessment and Plan (1) DKA (diabetic ketoacidosis): Status: Acute (2) Acute dehydration: Status: Acute Plan 63/ admitted through icu with euglycemic dka d/t jardiance dka resolved dm--continue -ssi, lantus, diabetic diet. Jardiance stopped htn-controlled on metoprolol and norvasc hld- lipitor epig pain--releated n/v which is resolved -pepcid, carafate mood d/o--seroquel cad--stable, -ASS, statin and metoprolol dvt p--heparin dispo home tomorrow Quality Stroke Does the patient have a stroke diagnosis?: No VTE Prior VTE?: No VTE Risk Level:: Medical - moderate - high VTE Device Contraindication: N/A - Device Ordered VTE Drug Contraindication: N/A - Med Ordered
[2024-04-05 16:25] LABS: Glucose, Whole Blood 156 mg/dL (60-115)
[2024-04-05 20:18] LABS: Glucose, Whole Blood 129 mg/dL (60-115)
[2024-04-05] MEDS: QUEtiapine Fumarate 200 MG TABLET PO (21:39)
[2024-04-06 04:00] VITALS: BP 163/86; PULSE 79; RESP 20; TEMP 36.9; O2SAT 97
[2024-04-06 06:33] LABS: Basophils Percent Auto 0.4 % (0-2); Eosinophils Absolute Auto 0.1 X10*3/uL (0.0-0.4); Eosinophils Percent Auto 1.6 % (0-4); Hematocrit 38.5 % (42.0-52.0); Hemoglobin 13.4 g/dl (14.0-18.0); Imm Gran Abs Auto 0.02 X10*3/uL (0.00-0.03); Imm Gran Pct Auto 0.3 % (0.0-0.4); Lymphocytes Absolute Auto 1.8 X10*3/uL (1.2-4.9); Lymphocytes Percent Auto 26.4 % (20-40); Mean Corpuscular HGB Conc 34.8 g/dl (31.0-36.0); Mean Corpuscular Hemoglobin 32.8 pg (27.0-33.0); Mean Corpuscular Volume 94.1 fL (80.0-98.0); Mean Platelet Volume 10.8 fL (9.4-12.4); Monocytes Absolute Auto 0.7 X10*3/uL (0.1-1.2); Monocytes Percent Auto 10.7 % (2-11); NRBC Pct Auto 0.3 /100WBC (0.0-0.2); Neutrophils Absolute Auto 4.1 x10*3/uL (2.0-8.3); Neutrophils Percent Auto 60.6 % (45-73); PLT CLUMP 1; Red Blood Count 4.09 X10*6/uL (4.60-5.80); Red Cell Distribution Width 13.5 % (11.0-16.0); SCAN SMEAR FLAG 1
[2024-04-06 06:35] LABS: MANUAL DIFF FLAG NO; White Blood Count 6.7 X10*3/uL (4.8-10.8)
[2024-04-06 06:49] LABS: Platelet Count 181 X10*3/uL (160-400)
[2024-04-06 06:53] LABS: Anion Gap 14 (12-20); Blood Urea Nitrogen 6 mg/dL (9-16); Calcium 9.4 mg/dL (8.4-10.2); Carbon Dioxide 23 mmol/L (22-29); Chloride 104 mmol/L (96-108); Creatinine Clr Calc Pharmacy 71.8; Estimated Glomerular Filt Rate > 60; Glucose Random 134 mg/dL (60-115); Magnesium 1.9 mg/dL (1.6-2.6); Phosphorus 2.8 mg/dL (2.7-4.5); Potassium 4.1 mmol/L (3.3-5.1); Sodium 137 mmol/L (135-145)
[2024-04-06 07:12] LABS: Glucose, Whole Blood 124 mg/dL (60-115)
--- NOTE | 2024-04-06 07:13 | PM.DS ---
DS: Providers Provider Date of Service: 04/06/24 Date of admission: 04/01/24 19:39 Date of discharge: 04/06/24 Primary care physician: Joe Sands MD DS: Diagnosis Discharge Diagnosis (1) DKA (diabetic ketoacidosis): Status: Acute (2) Acute dehydration: Status: Acute DS: Summary Hospital Course Hospital Course: admission hpi ?63-year-old male with underlying history of coronary artery disease status post stent 25 years ago, diabetes (for which he is on Lantus, NovoLog sliding scale and Jardiance), chronic kidney disease, hypertension, partial colectomy post complicated colonoscopy, smoker; who presented to the ER with complaints of nausea, vomiting for the past 4 days. ?Patient denies diarrhea, he has not had a bowel movement in almost 1 week. ?Patient complained of abdominal discomfort rated 7/10 in an intermittent manner, dull, at times becoming constant with the above associated symptoms in addition to some chills but no actual fever, some cough without any sputum production, no shortness of breath; denies chest pain, arm pr jaw pain. Patient is normotensive, his workup reveal a white count of 11.2, H and H of 15.8 and 45.4 respectively, platelets 224. Venous blood gas pH 7.2, pCO2 18, PO2 77, bicarb 7.? Sodium 136, potassium 4.4, chloride 101, carbon dioxide 7, anion gap 32, BUN 14, creatinine 2.0, random glucose 203, calcium 10.7, beta hydroxybutyrate acid 12.5.? Patient was given IV fluids and morphine but he was not given insulin. ?Urine tox screen was positive for opioids because he had morphine in the ER otherwise negative and alcohol level was not detectable.? His chest x-ray showed prominent gila bilaterally with a saddle right perihilar opacity and widened right paratracheal stripe.? Follow-up CT showed incidental right thyroid gland associated mass in the anterior mediastinum as well as a 4 mm spiculated right middle lobe nodule. Given the degree of acidosis and uncertainty of whether or not the patient was in DKA we are consulted to see the patient, after evaluating the patient, it is eminent that he is in DKA, the patient will be admitted to the ICU.? I asked the ER kindly to start him on insulin and made recommendations on dosages. Hospital course: The patient presented with abdominal pain, nausea, and vomiting and was found to have diabetic ketoacidosis (DKA) with an anion gap of 32, bicarbonate of 7, pH of 7.2, and a blood sugar of 203. He was admitted to the ICU for euglycemic DKA likely due to Jardiance (SGLT2 inhibitor). Treatment included intravenous fluids, an insulin drip, and glucose replacement until the anion gap closed and bicarbonate levels normalized. Jardiance has been discontinued. The plan is to restart Lantus at 23 units, with a possible increase to his baseline dose if blood sugars begin to trend upward. Fasting blood sugar is 134 now Time Attestation Discharge Coordination Time (in mins): 40 Quality: Safe Use of Opioids Does Pt have an Active Cancer Diagnosis on the Problem List?: No Quality: Stroke Does the patient have a stroke diagnosis?: No Physical Exam Vital Signs: Vital Signs: Last Vital Signs Temp 98.4 F 04/06/24 04:00 Pulse 79 04/06/24 04:00 Resp 20 04/06/24 04:00 BP 163/86 H 04/06/24 04:00 Pulse Ox 97 04/06/24 04:00 O2 Del Method Room Air 04/06/24 04:00 O2 Flow Rate 2 04/04/24 06:00 BMI result Body Mass Index 30.6 General: AO X 3, no acute distress Resp: CTA bilateral CVS: S1,S2,RRR GI: +BS, NT, no distention Skin: No rash Neuro: motor grossly intact Psych: appropriate affect Const: Other: General: AO X 3, no acute distress Resp: CTA bilateral CVS: S1,S2,RRR GI: +BS, NT, no distention Skin: No rash Neuro: motor grossly intact Psych: appropriate affect DS: Data Data Completed and Pending Labs on day of discharge: Laboratory Results - last 24 hr 04/05/24 04/05/24 04/05/24 05:56 10:50 15:23 WBC RBC Hgb Hct MCV MCH MCHC RDW Plt Count MPV Immature Gran % (Auto) Neut % (Auto) Lymph % (Auto) Lagrange % (Auto) Eos % (Auto) Baso % (Auto) Lymph # (Auto) Lagrange # (Auto) Eos # (Auto) Baso # (Auto) Abs Immat Gran (auto) Absolute Neuts (auto) Absolute Nucleated RBC Nucleated RBC % (auto) Sodium 141 Potassium 3.9 Chloride 105 Carbon Dioxide 26 Anion Gap 14 BUN 5 L Creatinine 1.08 Estim Creat Clear Calc 75.8 Estimated GFR > 60 POC Glucose 109 129 H Random Glucose 104 Calcium 9.6 D Phosphorus 2.5 L Magnesium 1.9 04/05/24 04/05/24 04/06/24 16:21 20:13 05:45 WBC 6.7 RBC 4.09 L Hgb 13.4 L Hct 38.5 L MCV 94.1 MCH 32.8 MCHC 34.8 RDW 13.5 Plt Count 181 MPV 10.8 Immature Gran % (Auto) 0.3 Neut % (Auto) 60.6 Lymph % (Auto) 26.4 Lagrange % (Auto) 10.7 Eos % (Auto) 1.6 Baso % (Auto) 0.4 Lymph # (Auto) 1.8 Lagrange # (Auto) 0.7 Eos # (Auto) 0.1 Baso # (Auto) 0.0 Abs Immat Gran (auto) 0.02 Absolute Neuts (auto) 4.1 Absolute Nucleated RBC 0.020 H Nucleated RBC % (auto) 0.3 H Sodium 137 Potassium 4.1 Chloride 104 Carbon Dioxide 23 Anion Gap 14 BUN 6 L Creatinine 1.14 Estim Creat Clear Calc 71.8 Estimated GFR > 60 POC Glucose 156 H 129 H Random Glucose 134 H Calcium 9.4 Phosphorus 2.8 Magnesium 1.9 04/06/24 06:59 WBC RBC Hgb Hct MCV MCH MCHC RDW Plt Count MPV Immature Gran % (Auto) Neut % (Auto) Lymph % (Auto) Lagrange % (Auto) Eos % (Auto) Baso % (Auto) Lymph # (Auto) Lagrange # (Auto) Eos # (Auto) Baso # (Auto) Abs Immat Gran (auto) Absolute Neuts (auto) Absolute Nucleated RBC Nucleated RBC % (auto) Sodium Potassium Chloride Carbon Dioxide Anion Gap BUN Creatinine Estim Creat Clear Calc Estimated GFR POC Glucose 124 H Random Glucose Calcium Phosphorus Magnesium Preliminary micro results at discharge 04/01/24 16:24 Blood Culture - Preliminary Blood - Venous No growth after 48 hours. 04/01/24 16:22 Blood Culture - Preliminary Blood - Venous No growth after 48 hours. Discharge Plan Discharge Anticipated Discharge Date/Time: 04/06/24 07:19 Patient Disposition: Home, Self-Care Discharge Diagnosis: DKA Referrals: Joe Sands MD [Primary Care Provider] - 1 Week Discharge Medications: Continued atorvastatin 80 mg Tablet 80 mg PO DAILY amlodipine 5 mg Tablet 5 mg PO DAILY aspirin 81 mg Tablet,Delayed Release (Dr/Ec) 81 mg PO DAILY famotidine 20 mg Tablet 20 mg PO BID ascorbic acid (vitamin C) 250 mg Tablet 250 mg PO DAILY multivitamin with minerals Tablet 1 tab PO DAILY ezetimibe 10 mg Tablet 10 mg PO DAILY insulin aspart U-100 100 unit/mL (3 mL) Insulin Pen 4 - 7 unit SUBCUT TIDWM metoprolol tartrate 25 mg Tablet 25 mg PO BID quetiapine 50 mg Tablet 50 mg PO BEDTIME quetiapine 400 mg Tablet 400 mg PO BEDTIME fenofibrate nanocrystallized 48 mg Tablet 48 mg PO DAILY cholecalciferol (vitamin D3) [Vitamin D3] 50 mcg (2,000 unit) Tablet 50 mcg PO DAILY insulin glargine-yfgn [Semglee(insulin glarg-yfgn)Pen] 100 unit/mL (3 mL) Insulin Pen 35 unit SUBCUT DAILY@0900 Discontinued Jardiance 25 mg Tablet 25 mg PO DAILY Diet: Advance to usual diet Activity on Discharge: As tolerated Stand Alone Forms: Patient Portal Discharge page Print Language: Divehi Care Plan Goals: recovery from DKA Health Concerns: DKA Plan of Treatment: stop taking Jardiance restart Lantus at home 23 units at bed time, rather than 35 and check your sugars as usual, if your blood sugars trend up check with your PcP to guidance on increasing the the lantus again Assessment: see above
[2024-04-06 07:45] VITALS: BP 138/73; PULSE 80; RESP 18; TEMP 37; O2SAT 97
[2024-04-06] MEDS: Aspirin 81 MG TAB.CHEW PO (08:10)
[2024-04-06] MEDS: Ascorbic Acid 250 MG TABLET PO (08:14)
[2024-04-06] MEDS: Cholecalciferol (Vitamin D3) 25 MCG TABLET 50 MCG PO (08:14)
[2024-04-06] MEDS: Multivitamin TABLET 1 TAB PO (08:14)
[2024-04-06] MEDS: Atorvastatin Calcium 80 MG TABLET PO (08:14)
[2024-04-06] MEDS: Ezetimibe 10 MG TABLET PO (08:14)
[2024-04-06] MEDS: Famotidine 20 MG TABLET PO (08:14)
[2024-04-06] MEDS: Fenofibrate 54 MG TABLET PO (08:14)
[2024-04-06] MEDS: amLODIPine Besylate 5 MG TABLET PO (08:16)
[2024-04-06] MEDS: Heparin Sodium,Porcine 5,000 UNIT/ML VIAL 5000 UNIT SUBCUT (08:17)
[2024-04-06] MEDS: oxyCODONE HCl Immed Release 5 MG TABLET PO (08:20)
[2024-04-06] MEDS: Metoprolol Tartrate 12.5 MG HALFTAB PO (08:32)
--- NOTE | 2024-04-06 09:46 | MHC.CM.PN ---
Patient has been medically cleared for dc to home today, self care. CM met with Patient at bedside and addressed IMM with him, providing Patient with the original and a copy has been placed on the chart.
== END 2024-04-06 14:49 | disposition home or self-care (01) | DRG 639 ==
LOC: HO.ED 19:44 → HO.EDOVER 19:46 → HO.ICU 20:03 → HO.IMC 04-04 13:49
PROVIDERS: Internal Medicine Critical Care Medicine; Physician Assistant; Physician Assistant Medical; Admitting Provider Physician Assistant Medical; Emergency Provider Emergency Medicine; PCP Internal Medicine; Visit Provider Internal Medicine
DX: E11.10 Type 2 diabetes mellitus with ketoacidosis without coma (principal); I25.10 Atherosclerotic heart disease of native coronary artery without angina pectoris; E11.22 Type 2 diabetes mellitus with diabetic chronic kidney disease; K21.9 Gastro-esophageal reflux disease without esophagitis; N18.30 Chronic kidney disease, stage 3 unspecified; I12.9 Hypertensive chronic kidney disease with stage 1 through stage 4 chronic kidney disease, or unspecified chronic kidney disease; T38.3X5A Adverse effect of insulin and oral hypoglycemic [antidiabetic] drugs, initial encounter; Z95.5 Presence of coronary angioplasty implant and graft; F39 Unspecified mood [affective] disorder; R91.1 Solitary pulmonary nodule; K59.00 Constipation, unspecified; E86.0 Dehydration; F17.210 Nicotine dependence, cigarettes, uncomplicated; Z71.6 Tobacco abuse counseling; Z79.4 Long term (current) use of insulin; Z79.82 Long term (current) use of aspirin; Z79.899 Other long term (current) drug therapy
CPT/HCPCS: 0241U; 36415; 71046; 71250; 74176; 80048; 80053; 80307; 81001; 82010; 82803; 82947; 83036; 83605; 83690; 83735; 84100; 84484; 85025; 87040; 93005; 99285; J1171; J1644; J2270; J2405; J2470; J3475

== ENCOUNTER → 2024-04-01 14:51 | Outpatient (BNV) | payer MEDICARE, MEDICAID, SELFPAY | PROVIDERS: Admitting Provider Physician Assistant Medical; Emergency Provider Emergency Medicine; PCP Internal Medicine; Visit Provider Internal Medicine Cardiovascular Disease | DX: R00.0 Tachycardia, unspecified (principal); R06.02 Shortness of breath | CPT/HCPCS: 93010 ==

== ENCOUNTER 2024-04-01 19:39 | Outpatient (BNV) | payer MEDICARE, MEDICAID, SELFPAY | END 2024-04-02 13:01 | PROVIDERS: Admitting Provider Physician Assistant Medical; Emergency Provider Emergency Medicine; PCP Internal Medicine; Visit Provider Internal Medicine | DX: R07.9 Chest pain, unspecified (principal) | CPT/HCPCS: 93010 ==

== ENCOUNTER → 2024-04-01 19:39 | Outpatient (BNV) | payer MEDICARE, MEDICAID, SELFPAY | PROVIDERS: Admitting Provider Physician Assistant Medical; Emergency Provider Emergency Medicine; PCP Internal Medicine; Visit Provider Physician Assistant Medical | DX: E11.10 Type 2 diabetes mellitus with ketoacidosis without coma (principal) | CPT/HCPCS: 99233; 99291; 99292 ==

== ENCOUNTER → 2024-04-01 19:39 | Outpatient (BNV) | payer MEDICARE, MEDICAID, SELFPAY | PROVIDERS: Admitting Provider Physician Assistant Medical; Emergency Provider Emergency Medicine; PCP Internal Medicine; Visit Provider Internal Medicine | DX: E11.10 Type 2 diabetes mellitus with ketoacidosis without coma (principal); E86.0 Dehydration; I10 Essential (primary) hypertension; E78.5 Hyperlipidemia, unspecified | CPT/HCPCS: 99232; 99239; 99499 ==

== ENCOUNTER 2025-04-06 08:36 | Outpatient (REF) | payer MEDICARE, MEDICAID, SELFPAY ==
--- OUTSIDE RECORDS SUMMARY | 2025-04-06 08:59 | XMS_ITS | Encounter Summary ---
Author Organization [facility] Address [address] [facility] [address] [place] [address] Phone Care Team Providers Care Mattress Specialist Name Role Phone Joe Sands MD Primary Care Provider [phone] Serg Marinelli DO Unavailable [phone] Laurie Olivier WARPER CREELER Unavailable Stephanie García BINDERY MANAGER Unavailable [phone] Encounter Details Date Type Department Care Team (Late st Contact Info) Description 12/06/2023 Procedure Pass [facility], Ct Scan - [address] [address] Social History Tobacco Use Types Packs/Day Years Used Date Smoking Tobacco: Every Day Cigarettes Smokeless Tobacco: Never Alcohol Use Standard Drinks/Week Comments Not Currently 8 (1 standard drink = 0.6 oz pur e alcohol) Education Answer Date Recorded Are you interested in more education? Not on jerry e 10/16/2022 Are you concerned about learning? Not on file 10/16/2022 No 10/16/2022 No 10/16/2022 Digital Access Answer Date Recorded No 11/11/2022 No 11/11/2022 Reliable internet access at home? Not on file 11/11/2022 Device with a working camera? Not on file Intimate Partner Violence Answer Date R ecorded Are you denied basic needs s uch as food, clothing, or medical care? No 10/08/2023 In the past 12 months have y ou been in a relationship with a person who hurts, threatens, or tries to control you? No 10/08/2023 Are you denied basic needs s uch as food, clothing, or medical care? No 10/08/2023 In the past 12 months have y ou been in a relationship with a person who hurts, threatens, or tries to control you? No 10/08/2023 Sex and Gender Information Value Date Recorded Sex Assigned at Male 09/05/2017 12:48 PM EDT Legal Sex Male 8:33 PM EDT Gender Identity Male 09/05/2017 12:48 PM EDT Sexual Orientation Straight 09/05/2017 12 :48 PM EDT documented as of this encounter Plan of Treatment Upcoming Encounters Date Type Department Care Team (Late st Contact Info) Description 08/21/2025 1:00 PM EST Office Visit [facility] [address] [place] [address] 3rd Floor, [address] [place] [address] Kaci Moya, [facility], [address] [address] [email or web address] 01/11/2026 3:00 PM EDT Office Visit [facility] at [facility] [address] [place] [address] Serg Marinelli DO [address] [place] [address] [email or web address] documented as of this encounter Visit Diagnoses Not on filedocumented in this encounter Care Teams Mattress Specialist Relationship Specialty Start Date End Date Joe Sands MD [address] [place] [id number] PCP - General Internal Medicine 09/05/17 Serg Marinelli DO [address] [place] [id number] [email or web address] Primary Oncologist Hematology and Oncology 08/12/22 Laurie Olivier CNP [address] [place] [address] [email or web address] Nurse Practitioner Medical Oncology 10/11/23 Stephanie García FNP [address] [place] [address] [email or web address] Registered Nurse Nurse Practitioner 06/01/24 documented as of this encounter Additional Source Comments The information contained in this document represents components of the legal health record. It is not the complete legal health record.[facility]
--- OUTSIDE RECORDS SUMMARY | 2025-04-06 08:59 | XMS_ITS | Encounter Summary ---
Author Organization [facility] Address [address] [facility] [address] [place] [address] Phone Care Team Providers Care Instructional Technology Specialist Name Role Phone Joe Sands MD Primary Care Provider [phone] Serg Marinelli DO Unavailable [phone] Laurie Olivier MANAGEMENT TRAINER Unavailable Stephanie García COMMERCIAL CONSTRUCTION SUPERINTENDENT Unavailable [phone] Reason for Referral * MRI/CAT Scan - Closed Specialty Diagnoses / Procedures Referred By Contac t Referred To Contact Radiology Diagnoses Atypical facial pain Arthralgia of right temporomandibular joint Procedures CT Neck Deedee Mary PA-C Phone: tel: fax: [email or web address] Referral ID Status Reason Start Date Expiration Date Visits Re quested Visits Authorized [id number] Closed 08/24/2019 08/23/2020 1 1 Encounter Details Date Type Department Care Team (Latest Contact Info) Description 08/24/2019 Transcribe Orders Virtual Department [address] [place] [address] Deedee Mary PA-C [address] [place] [id number] [email or web address] Atypical facial pain (Primary Dx); Arthralgia of right temporomandibular joint Social History Tobacco Use Types Packs/Day Years Used Date Smoking Tobacco: Every Day Smokeless Tobacco: Never Alcohol Use Standard Drinks/Week Comments Yes 0 (1 standard drink = 0.6 oz pur e alcohol) daily - whiskey 1.5 pint Sex and Gender Information Value Date Recorded Sex Assigned at Male 09/05/2017 12:48 PM EDT Legal Sex Male 8:33 PM EDT Gender Identity Male 09/05/2017 12:48 PM EDT Sexual Orientation Straight 09/05/2017 12 :48 PM EDT documented as of this encounter Plan of Treatment Upcoming Encounters Date Type Department Care Team (Late st Contact Info) Description 08/21/2025 1:00 PM EST Office Visit [facility] [address] [facility] 3rd Floor, [address] [place] [address] Kaci Moya, [place] 22 [facility], [address] [address] 01/11/2026 3:00 PM EDT Office Visit [facility] at [address] [address] Serg Marinelli DO [address] [place] [address] [email or web address] documented as of this encounter Results * CT NECK SOFT TISSUE WITH CONTRAST (09/19/2019 2:40 PM EDT) Anatomical Region Laterality Modality Neck Computed Tomogra phy 09/19/2019 2:43 PM EDT Impressions 09/19/2019 2:56 PM EDT Small non-specific soft tissue nodule in the right cheek which could possibly represent a lymph node and could be correlated with clinical findings. No additional cervical chain lymphadenopathy. 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 No laryngeal or salivary gland mass or significant TMJ arthropathy. TOTAL CTDIvol: 12.70 mGy POS - [id number] Narrative 09/19/2019 2:56 PM EDT COMPARISON: 09/05/[address] TECHNIQUE: Helical scanning was performed from the skull base through the thoracic inlet during intravenous administration of contrast material. Sagittal and coronal reformats were generated and reviewed. Automated exposure control was utilized. FINDINGS: Salivary glands are unremarkable in appearance without evidence of internal abscess, mass, or calculi. No pathologically enlarged cervical chain lymph nodes are identified. No discrete laryngeal mass demonstrated. There is a nodule with slightly ill-defined borders in the subcutaneous fat of the right cheek at the level of the mandibular ramus measuring approximately 1.6 x 0.9 cm in transverse dimensions, non-specific but possibly reflecting a lymph node. No discrete soft tissue abscess or fluid collection detected. Small non-specific skin calcification at the level of the left mandibular body (series 3 image 45) of doubtful significance. There are multiple hypodense thyroid nodules with chronic substernal extension of the right thyroid lobe suggesting goiter. No evidence of jugular vein thrombosis or carotid occlusion. Visualized lung apices are grossly clear. Visualized intracranial contents are unremarkable. No advanced arthritic changes are detected at the level of the temporomandibular joints. No other significant bony pathology noted. Procedure Note Oli Medina MD - 09/19/2019 COMPARISON: 09/05/[address] TECHNIQUE: Helical scanning was performed from the skull base through thethoracic inlet during intravenous administration of contrast material.Sagittal and coronal reformats were generated and reviewed. Automatedexposure control was utilized. FINDINGS: Salivary glands are unremarkable in appearance without evidence ofinternal abscess, mass, or calculi. No pathologically enlarged cervicalchain lymph nodes are identified. No discrete laryngeal massdemonstrated. There is a nodule with slightly ill-defined borders in thesubcutaneous fat of the right cheek at the level of the mandibular ramusmeasuring approximately 1.6 x 0.9 cm in transverse dimensions,non-specific but possibly reflecting a lymph node. No discrete softtissue abscess or fluid collection detected. Small non-specific skincalcification at the level of the left mandibular body (series 3 image 45)of doubtful significance. There are multiple hypodense thyroid nodules with chronic substernalextension of the right thyroid lobe suggesting goiter. No evidence ofjugular vein thrombosis or carotid occlusion. Visualized lung apices are grossly clear. Visualized intracranialcontents are unremarkable. No advanced arthritic changes are detected atthe level of the temporomandibular joints. No other significant bonypathology noted. IMPRESSION: Small non-specific soft tissue nodule in the right cheek which couldpossibly represent a lymph node and could be correlated with clinicalfindings. No additional cervical chain lymphadenopathy. 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 No laryngeal orsalivary gland mass or significant TMJ arthropathy. TOTAL CTDIvol: 12.70 mGy POS - [id number] Deedee Mary PA-C IMG CT XSPECIALTY ORDERA BLES Final Result documented in this encounter Visit Diagnoses Diagnosis Atypical facial pain- Primary Atypical face pain Arthralgia of right temporomandibular joint Atypical facial pain Atypical face pain Arthralgia of right temporomandibular joint documented in this encounter Care Teams Instructional Technology Specialist Relationship Specialty Start Date End Date Joe Sands MD [address] [place] [phone] PCP - General Internal Medicine 09/05/17 Serg Marinelli DO [address] [place] [phone] [email or web address] Primary Oncologist Hematology and Oncology 08/12/22 Laurie Olivier CNP [address] [place] [phone] [email or web address] Nurse Practitioner Medical Oncology 10/11/23 Stephanie García FNP [address] [place] [address] [email or web address] Registered Nurse Nurse Practitioner 06/01/24 documented as of this encounter Additional Source Comments The information contained in this document represents components of the legal health record. It is not the complete legal health record.[facility]
--- OUTSIDE RECORDS SUMMARY | 2025-04-06 08:59 | XMS_ITS | Encounter Summary ---
Author Organization [facility] Address [address] [facility] [address] [place] [address] Phone Care Team Providers Care Department Operations Manager Name Role Phone Joe Sands MD Primary Care Provider [phone] Yves Serg Wright DO Unavailable [phone] Soy Laurie JOB SPOTTER Unavailable Stephanie García STEAM STATION SUPERVISOR Unavailable [phone] Reason for Referral * MRI/CAT Scan - Closed Specialty Diagnoses / Procedures Referred By Contac t Referred To Contact Radiology Diagnoses Facial pain Trigeminal neuralgia Procedures MRI Brain Angel Luis Evans MD Phone: tel: fax: mailto:[email or web address] Referral ID Status Reason Start Date Expiration Date Visits Re quested Visits Authorized [id number] Closed 12/12/2019 12/11/2020 1 1 Encounter Details Date Type Department Care Team (Latest Contact Info) Description 12/12/2019 Transcribe Orders Virtual Department [address] [place] [phone] Angel Luis Evans MD [address] [facility] [place], [place] [id number] [email or web address] Facial pain (Primary Dx); Trigeminal neuralgia Social History Tobacco Use Types Packs/Day Years [...] Description 08/21/2025 1:00 PM EST Office Visit [facility] [address] [facility] 3rd Floor, [address] [place] [address] Kaci Moya, [facility] 22 [facility], [address] [address] [place] 01/11/2026 3:00 PM EDT Office Visit [facility] [place] [address] [address] Serg Marinelli, DO [address] [place] [address] [email or web address] documented as of this encounter Results * MRI BRAIN WITHOUT CONTRAST (02/02/2020 12:45 PM EDT) Anatomical Region Laterality Modality Head Magnetic Resonan ce 02/02/2020 1:44 PM EDT Impressions 02/02/2020 2:01 PM EDT 1. No acute intracranial abnormality, mass, or hydrocephalus. 2. Nonspecific white matter changes. Narrative 02/02/2020 2:01 PM EDT TECHNIQUE: MRI BRAIN WITHOUT CONTRAST COMPARISON: CT head 09/05/2017. HISTORY: As per header. FINDINGS: There is no evidence of intracranial mass, hemorrhage or acute infarction. There is [id number] nonspecific periventricular and scattered subcortical white matter and intrapontine T2-FLAIR hyperintense foci, which can be seen with chronic small vessel disease. The ventricles, sulci and cisterns are within normal limits in size and configuration. There is no evidence of hydrocephalus. There is normal T2 signal intensity within the membranous labyrinths bilaterally. The flow voids of the major intracranial vessels appear intact. There is trace scattered mucosal thickening of the paranasal sinuses. There is trace fluid-intensity signal within the mastoid air cells bilaterally. There is mild degenerative changes of left and no significant degenerative changes of the right temporomandibular joints, which are suboptimally evaluated on the current exam. The mandible is partially visualized and suboptimally evaluated. The bones and extracranial soft tissues are otherwise unremarkable. Procedure Note Srinivas Figueroa MD, PhD - 02/02/2020 TECHNIQUE: MRI BRAIN WITHOUT CONTRAST COMPARISON: CT head 09/05/2017. HISTORY: As per header. FINDINGS: There is no evidence of intracranial mass, hemorrhage or acuteinfarction. There is [id number] nonspecific periventricular and scatteredsubcortical white matter and intrapontine T2-FLAIR hyperintense foci,which can be seen with chronic small vessel disease. The ventricles, sulci and cisterns are within normal limits in size andconfiguration. There is no evidence of hydrocephalus. There is normal T2 signal intensity within the membranous labyrinthsbilaterally. The flow voids of the major intracranial vessels appear intact. There is trace scattered mucosal thickening of the paranasal sinuses.There is trace fluid-intensity signal within the mastoid air cellsbilaterally. There is mild degenerative changes of left and no significant degenerativechanges of the right temporomandibular joints, which are suboptimallyevaluated on the current exam. The mandible is partially visualized andsuboptimally evaluated. The bones and extracranial soft tissues are otherwise unremarkable. IMPRESSION: 1. No acute intracranial abnormality, mass, or hydrocephalus. 2. Nonspecific white matter changes. us Angel Luis Evans MD IMG MR HEAD/NECK Final Resul t documented in this encounter Visit Diagnoses Diagnosis Facial pain- Primary Headache Trigeminal neuralgia Facial pain Headache Trigeminal neuralgia documented in this encounter Care Teams Department Operations Manager Relationship Specialty Start Date End Date Joe Sands MD [address] [place] [address] PCP - General Internal Medicine 09/05/17 Serg Marinelli DO [address] [place] [address] [email or web address] Primary Oncologist Hematology and Oncology 08/12/22 Laurie Olivier CNP [address] [place] [address] [email or web address] Nurse Practitioner Medical Oncology 10/11/23 Stephanie García FNP [address] [place] [address] [email or web address] Registered Nurse Nurse Practitioner 06/01/24 documented as of this encounter Additional Source Comments The information contained in this document represents components of the legal health record. It is not the complete legal health record.[facility]
--- OUTSIDE RECORDS SUMMARY | 2025-04-06 09:00 | XMS_ITS | Encounter Summary ---
Author Organization [facility] Address [address] [facility] [place] [address] Phone Care Team Providers Care Supervisor Pastry Name Role Phone Joe Sands MD Primary Care Provider [phone] Serg Marinelli DO Unavailable [phone] Laurie Olivier INSTRUCTIONAL SUPERVISOR Unavailable Stephanie García MAINTENANCE MECHANIC 2ND SHIFT Unavailable [phone] Encounter Details Date Type Department Care Team (Late st Contact Info) Description 09/25/2022 Procedure Pass [facility], Ct Scan - [address] [address] Social History Tobacco Use Types Packs/Day Years Used Date Smoking Tobacco: Every Day Cigarettes Smokeless Tobacco: Never Alcohol Use Standard Drinks/Week Comments Yes 8 (1 standard drink = 0.6 oz pur e alcohol) Sex and Gender Information Value Date Recorded Sex Assigned at Male 09/05/2017 12:48 PM EDT Legal Sex Male 8:33 PM EDT Gender Identity Male 09/05/2017 12:48 PM EDT Sexual Orientation Straight 09/05/2017 12 :48 PM EDT documented as of this encounter Plan of Treatment Upcoming Encounters Date Type Department Care Team (Late st Contact Info) Description 08/21/2025 1:00 PM EST Office Visit [facility] [address] [place] [address] 3rd Floor, [address] [place], [place] [phone] Kaci Moya DNP [address] [facility], [address] [place], [place] [phone] 01/11/2026 3:00 PM EDT Office Visit [facility] [address] [place] [address] Serg Marinelli DO 30 [place] [address] [email or web address] documented as of this encounter Visit Diagnoses Not on filedocumented in this encounter Care Teams Supervisor Pastry Relationship Specialty Start Date End Date Joe Sands MD [address] [place] [phone] PCP - General Internal Medicine 09/05/17 Serg Marinelli DO [address] [place] [address] [email or web address] Primary Oncologist Hematology and Oncology 08/12/22 Laurie Olivier CNP [address] [place] [address] [email or web address] Nurse Practitioner Medical Oncology 10/11/23 Stephanie García FNP [address] [place] [address] [email or web address] Registered Nurse Nurse Practitioner 06/01/24 documented as of this encounter Additional Source Comments The information contained in this document represents components of the legal health record. It is not the complete legal health record.[facility]
--- OUTSIDE RECORDS SUMMARY | 2025-04-06 09:00 | XMS_ITS | Encounter Summary ---
Author Organization [facility] Address [address] [facility] [address] [place] [address] Phone Care Team Providers Care Creative Assistant Name Role Phone Joe Sands MD Primary Care Provider Serg Marinelli DO Unavailable Laurie Olivier CONTINUOUS MINER OPERATOR HELPER Unavailable Stephanie García FIRE EXTINGUISHER INSPECTOR Unavailable [phone] Encounter Details Date Type Department Care Team (Late st Contact Info) Description 04/02/2023 Procedure Pass [facility] Endoscopy Admitting Dept Virtual Department [address] [place] [phone] Social History Tobacco Use Types Packs/Day Years [...] with a working camera? Not on file Sex and Gender Information Value Date Recorded Sex Assigned at Male 09/05/2017 12:48 PM EDT Legal Sex Male 8:33 PM EDT Gender Identity Male 09/05/2017 12:48 PM EDT Sexual Orientation Straight 09/05/2017 12 :48 PM EDT documented as of this encounter Plan of Treatment Upcoming Encounters Date Type Department Care Team (Late st Contact Info) Description 08/21/2025 1:00 PM EST Office Visit [facility] [address] [facility] 3rd Floor, [address] [place] [address] Kaci Moya, [place] [address] [facility], [address] [place] [address] 01/11/2026 3:00 PM EDT Office Visit [facility] 30 [place] [address] Serg Marinelli DO 30 [place] [address] [email or web address] documented as of this encounter Visit Diagnoses Not on filedocumented in this encounter Care Teams Creative Assistant Relationship Specialty Start Date End Date Joe Sands MD [address] [place] [address] PCP - General Internal Medicine 09/05/17 Serg Marinelli DO [address] [place] [address] [email or web address] Primary Oncologist Hematology and Oncology 08/12/22 Laurie Olivier CNP [address] [place] [address] [email or web address] Nurse Practitioner Medical Oncology 10/11/23 Stephanie García FNP [address] [place] [address] [email or web address] Registered Nurse Nurse Practitioner 06/01/24 documented as of this encounter Additional Source Comments The information contained in this document represents components of the legal health record. It is not the complete legal health record.[facility]
--- OUTSIDE RECORDS SUMMARY | 2025-04-06 09:00 | XMS_ITS | Encounter Summary ---
Author Organization [facility] Address [address] [facility] [address] [place] [address] Phone Care Team Providers Care Arts And Crafts Instructor Name Role Phone Joe Sands MD Primary Care Provider [phone] Serg Marinelli DO Unavailable [phone] Laurie Olivier CRAFT DEMONSTRATOR Unavailable Stephanie Gacría PETROLEUM ENGINEERING TEACHER Unavailable [phone] Encounter Details Date Type Department Care Team (Late st Contact Info) Description 06/08/2024 Procedure Pass [facility], Ct Scan - [address] [address] Social History Tobacco Use Types Packs/Day Years [...] Description 08/21/2025 1:00 PM EST Office Visit [facility] [address] [place] [address] 3rd Floor, [address] [place] [address] Kaci Moya, [facility] [address] [facility], [address] [address] [email or web address] 01/11/2026 3:00 PM EDT Office Visit [facility] 30 [place] [address] Serg Marinelli DO 30 [place] [address] [email or web address] documented as of this encounter Visit Diagnoses Not on filedocumented in this encounter Care Teams Arts And Crafts Instructor Relationship Specialty Start Date End Date Joe Sands MD [address] [place] [address] PCP - General Internal Medicine 09/05/17 Serg Marinelli DO [address] [place] [phone] [email or web address] Primary Oncologist Hematology and Oncology 08/12/22 Laurie Olivier CNP 30 [place] [address] [email or web address] Nurse Practitioner Medical Oncology 10/11/23 Stephanie García FNP [address] [place] [address] [email or web address] Registered Nurse Nurse Practitioner 06/01/24 documented as of this encounter Additional Source Comments The information contained in this document represents components of the legal health record. It is not the complete legal health record.[facility]
--- OUTSIDE RECORDS SUMMARY | 2025-04-06 09:00 | XMS_ITS | Encounter Summary ---
Author Organization [facility] Address [address] [facility] [address] [place] [address] Phone Care Team Providers Care Clerk General Office Name Role Phone Joe Sands MD Primary Care Provider [phone] Serg Marinelli DO Unavailable Laurie Olivier GLAZIER STAINED GLASS Unavailable Stephanie García CARBIDE OPERATOR Unavailable [phone] Encounter Details Date Type Department Care Team (Late st Contact Info) Description 12/12/2019 Procedure Pass [address] [place] [address] Social History Tobacco Use Types Packs/Day Years [...] Description 08/21/2025 1:00 PM EST Office Visit [facility] [address] [facility] 3rd Floor, [address] [place], [place] [phone] Kaci Moya, [place] [address] [facility], [address] [place] [address] 01/11/2026 3:00 PM EDT Office Visit [facility] [address] [place] [address] Serg Marinelli DO 30 [place] [address] [email or web address] documented as of this encounter Visit Diagnoses Not on filedocumented in this encounter Care Teams Clerk General Office Relationship Specialty Start Date End Date Joe Sands MD [address] [place] [phone] PCP - General Internal Medicine 09/05/17 Serg Marinelli DO [address] [place] [phone] [email or web address] Primary Oncologist Hematology and Oncology 08/12/22 Laurie Olivier CNP [address] [place] [address] [email or web address] Nurse Practitioner Medical Oncology 10/11/23 Stephanie García FNP [address] [place] [address] [email or web address] Registered Nurse Nurse Practitioner 06/01/24 documented as of this encounter Additional Source Comments The information contained in this document represents components of the legal health record. It is not the complete legal health record.[facility]
--- OUTSIDE RECORDS SUMMARY | 2025-04-06 09:00 | XMS_ITS | Encounter Summary ---
Author Organization [facility] Address [address] [facility] [address] [place] [address] Phone Care Team Providers Care Validation Architect Name Role Phone Joe Sands MD Primary Care Provider Serg Marinelli DO Unavailable [phone] Laurie Olivier MANAGER OF ENGINEERING Unavailable Stephanie García NUT CHOPPER Unavailable [phone] Encounter Details Date Type Department Care Team (Late st Contact Info) Description 07/07/2022 Procedure Pass [facility]oscopy Admitting Dept Virtual Department [address] [place], [place] [phone] Social History Tobacco Use Types Packs/Day Years Used Date Smoking Tobacco: Every Day Cigarettes Smokeless Tobacco: Never Alcohol Use Standard Drinks/Week Comments Yes 10 (1 standard drink = 0.6 oz pu re alcohol) Sex and Gender Information Value Date Recorded Sex Assigned at Male 09/05/2017 12:48 PM EDT Legal Sex Male 8:33 PM EDT Gender Identity Male 09/05/2017 12:48 PM EDT Sexual Orientation Straight 09/05/2017 12 :48 PM EDT documented as of this encounter Plan of Treatment Upcoming Encounters Date Type Department Care Team (Late st Contact Info) Description 08/21/2025 1:00 PM EST Office Visit [facility] [address] [place] [address] 3rd Floor, [address] [place], [place] [phone] Kaci Moya, [place] [address] [facility], [address] [place], [place] [phone] 01/11/2026 3:00 PM EDT Office Visit [facility] [address] [place] [address] Serg Marinelli DO 30 [place] [address] [email or web address] documented as of this encounter Visit Diagnoses Not on filedocumented in this encounter Care Teams Validation Architect Relationship Specialty Start Date End Date Joe Sands MD [address] [place] [phone] PCP - General Internal Medicine 09/05/17 Serg Marinelli DO [address] [place] [address] [email or web address] Primary Oncologist Hematology and Oncology 08/12/22 Laurie Olivier CNP [address] [place] [address] [email or web address] Nurse Practitioner Medical Oncology 10/11/23 Stephanie García FNP [address] [place] [address] [email or web address] Registered Nurse Nurse Practitioner 06/01/24 documented as of this encounter Additional Source Comments The information contained in this document represents components of the legal health record. It is not the complete legal health record.[facility]
--- OUTSIDE RECORDS SUMMARY | 2025-04-06 09:00 | XMS_ITS | Clinical Summary ---
Author Organization [facility] Address [address] [facility] [address] [place] [address] Phone Care Team Providers Care Nail Tech Name Role Phone Joe Sands MD Primary Care Provider Serg Marinelli DO Unavailable [phone] Laurie Olivier P[employer]ING [employer] FLOORHAND Unavailable Stephanie García [employer] MARKER Unavailable Allergies Active Allergy Reactions Criticality Noted Date Comments Buprenorphine-Naloxone Swelling 05/27/2017 Lisinopril Hyperkalemia High 12/18/2016 Methimazole Dizziness 10/20/2019 Milk Nausea And Vomiting 08/09/2019 Medications insulin glargine (LANTUS, BASAGLAR) 100 unit/mL (3 mL) InPn injection pen 40 sc sc bid Active aspirin 81 MG EC tablet Active QUEtiapine (SEROQUEL) 50 MG tablet Take 400 mg by mouth nightly at bedtime. Active lisinopril (PRINIVIL,ZESTR IL) 20 MG tablet Take 20 mg by mouth daily. Active metoprolol tartrate (LOPRESSOR) 100 MG tablet Take 100 mg by mouth 2 (two) times a day. Active insulin aspart U-100 (NOVOLOG) 100 unit/mL injection vial Inject 4 Units under the skin 3 (three) times a day before meals. Active cholecalciferol (VITAMIN D3) 2,000 unit tablet 50 mcg. 04/05/2023 Active ezetimibe (ZETIA) 10 mg tablet 10 mg. 10/08/2022 Active losartan (COZAAR) 25 MG tablet 25 mg. 03/19/2023 Active ferrous sulfate 324 mg (65 mg nondalton iron) TbEC Take 324 mg by mouth daily with breakfast. Active amLODIPine (NORVASC) 5 MG tablet 5 mg. 04/19/2023 Active atorvastatin (LIPITOR) 80 MG tablet 80 mg. 04/19/2023 Active famotidine (PEPCID) 20 MG tablet 20 mg. 04/14/2023 Active fenofibrate (TRICOR) 48 MG tablet 48 mg. 04/19/2023 Active Active Problems Patient Care Coordination No te Formatting of this note migh t be different from the original. Height 179.1cm no shoes on. 01/05/25 Problem Noted Date Diagnosed Date Dyspnea on exertion 04/14/2022 Assessment & Plan (10/26/2022 1:48 PM EDT): Resolved. Given cardiovascular risk factors, I've encouraged him to have the echocardiogram done that was ordered by Dr Santamaria previously. Assessment & Plan (04/14/2022 10:32 AM EDT): I have ordered an echo to evaluate this if there are regional wall motion abnormalities he will need a stress test. Bilateral carotid bruits 04/14/2022 Assessment & Plan (02/21/2025 1:13 PM EDT): He had a carotid duplex study in 2023 which showed right ICA for 16-29% stenosis, left ICA 16-49% stenosis. Continues to smoke roughly 10 cigarettes/day. He recently was diagnosed with lung cancer. He will continue his current medication regimen of aspirin 81 mg daily, atorvastatin 80 mg daily, fenofibrate 48 mg daily, Zetia 10 mg daily. Will repeat a carotid duplex study in within the next year. Assessment & Plan (12/30/2023 8:30 AM EDT): Unable to appreciate bruits on exam today. He had a carotid duplex a year ago Which is shown right ICA 16-49% stenosed, left ICA 16-49% stenosed. He is still smoking 10 cigarettes a day. He has diabetes he tells me his last U1C is 7.2 although I cannot see the results of this. Currently taking atorvastatin 80, aspirin 81, fenofibrate 48, and Zetia 10 mg We can repeat carotid duplex in a year for ongoing surveillance Assessment & Plan (09/21/2023 2:50 PM EDT): Continues to smoke strongly encouraged to quit. He is on atorvastatin 80 mg daily, aspirin 81 mg daily, fenofibrate 48 mg daily which she will continue. Assessment & Plan (10/26/2022 1:47 PM EDT): Dr Santamaria ordered a carotid duplex at a previous visit, this was not done for unclear reasons. I have reordered this today. He will continue aspirin. We talked about the importance of smoking cessation today, he is aware of the importance and is going to consider following up with his PCP to try nicotine patches again. Assessment & Plan (04/14/2022 10:32 AM EDT): He has significant risk factors for CAD as well as PVD I have ordered him a carotid duplex and we will review these results when I see him back Claudication in peripheral vascular disease 03/22 Assessment & Plan (02/21/2025 1:13 PM EDT): Denied any vascular symptoms today. He will continue his current medication regimen without change. Assessment & Plan (08/21/2024 3:45 PM EST): ABIs and lower arterial duplex studies were normal without any significant issues for PAD. He does continue to report very intermittent thigh/groin discomfort. He does have diabetes and he did not follow-up with his primary care for this. This could be some component of neuropathy or microvascular disease. [facility] He is strongly encouraged to quit smoking. Assessment & Plan (12/30/2023 8:35 AM EDT): His recent repeat ABIs and lower extremity arterial studies were normal without any significant issues for PAD. His thigh discomfort is very intermittent and not at all consistently reproducible. He says he has no pain today and given his history he says he does not think that he will have another issue with it for at least a couple months. He does have diabetes, he does have some tingling in the toes of his right foot on occasion, he may have some element of neuropathy as well as microvascular disease. Overall unclear what the cause of his leg discomfort is. I recommend he follow- up with his PCP. Assessment & Plan (09/21/2023 2:50 PM EDT): His most recent CRAIN's and ABIs were without any significant issues for PVD or PAD however he continues to have some pain to his upper thigh. Will repeat ABIs and duplex study as the last time these were done more about a year ago. 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 He does continue to smoke and he is strongly encouraged to quit. Assessment & Plan (10/26/2022 1:49 PM EDT): Reviewed KAYLEY and TERRY with Dr Bateman. Today, patient denies any leg discomfort, open wounds or symptoms of PAD whatsoever. Mild reduction in TERRY is likely due to microvascular disease as commonly seen in patients with diabetes. No further intervention necessary at this time. Assessment & Plan (04/14/2022 10:32 AM EDT): As mentioned I am going to order Lotrimin arterial duplex I will follow-up with him thereafter. Diabetes 04/14/2022 Assessment & Plan (08/21/2024 3:45 PM EST): States his last hemoglobin A1c is 6.7 but I do not have those records for my review. Assessment & Plan (12/30/2023 8:31 AM EDT): This to be managed at the [facility]. He tells me that his last A1c was around 7.2 this was checked a few weeks ago, I cannot see the results of this. Target A1c for this gentleman should be less than 7 Assessment & Plan (04/14/2022 10:33 AM EDT): A1c should be less than 7 Benign essential hypertension 04/14/2022 Assessment & Plan (02/21/2025 1:13 PM EDT): Blood pressure is very well-controlled today at 100/68. He is on amlodipine 5 mg daily, lisinopril 20 mg daily, losartan 25 mg and metoprolol 100 mg twice daily. If blood pressure continues to be on the lower side and he becomes symptomatic we can discontinue or reduce some of his current medications. He states he is asymptomatic and he is doing well from a cardiovascular standpoint. SBP goal less than 130/80. Assessment & Plan (08/21/2024 3:44 PM EST): Blood pressure is controlled today 98/70. Looks like he is a little dehydrated as he is little tachycardic as well. He is on metoprolol 100 mg twice daily, lisinopril 20 mg daily, amlodipine 5 mg daily. He does admit to not drinking a lot of fluid today. I did ask him to start hydrating. He was offered water while he was here in the office but he declined this. Assessment & Plan (12/30/2023 8:31 AM EDT): Blood pressure well-controlled on current medications. 106/70 in office today. Will continue current medications without change. Assessment & Plan (09/21/2023 2:49 PM EDT): Blood pressure is currently controlled today 116/70. He is on amlodipine 5 mg daily, Toprol 100 mg twice daily, lisinopril 20 mg daily which she will continue without change. Assessment & Plan (10/26/2022 1:45 PM EDT): BP in office today 100/70, well controlled on metoprolol. Continue without change. Assessment & Plan (04/14/2022 10:32 AM EDT): Goal should be less than 130 mmHg Current smoker 04/14/2022 Assessment & Plan (12/30/2023 8:32 AM EDT): Strong encouraged him to quit smoking. Currently smoking about 10 cigarettes a day he tells me. He already has nicotine patches at home I recommend he try these. [facility] and he is awaiting a callback from them to set up first appointment. Assessment & Plan (09/21/2023 2:50 PM EDT): Strongly recommended to quit smoking. Assessment & Plan (04/14/2022 10:33 AM EDT): I strongly counseled this patient on smoking cessation today in excess of 10 minutes. Encounters Date Type Department Care Team Description 02/21/2025 1:30 PM EDT Office Visit [facility] [address], [address] [place] [address] Kaci Moya, DENILSON Bilateral carotid bruits (Primary Dx); Benign essential hypertension; Claudication in peripheral vascular disease 01/05/2025 1:00 PM EDT Office Visit [facility] [address] [place] [address] Stephanie García, [employer] MARKER Malignant neoplasm of lung, unspecified laterality, unspecified part of lung (Primary Dx); Claudication in peripheral vascular disease from Last 3 Months Immunizations Immunization Administration Dates Next Due COVID-19 (Pre-04/12) Pfizer Vaccine, mRNA, PF 09/17/2020,08/27/2020 Hepatitis A, Unspecified 09/01/2004,05/08/2002 INFLUENZA, SPLIT VIRUS, TRIV ALENT W/ PRESERVATIVE IM 05/27/2017 Influenza Quadrivalent Prese rvative Free IM 04/23/2022,07/11/2021,03/05/2020,05/16 Influenza Quadrivalent w/ Pr eservative IM 05/16/2019 Influenza, Unspecified Formulation 02/28,03/21/2023,03/04/2023,03/27,03/28/2014,04/21/2013,03/10/2012 ,03/03/2011,04/02/2010,04/05/2009,03/21,04/06/2007,05/24/2006, 5,03/21/2005,05/21/2003,05/24/1996 Pneumococcal conjugate PCV13 01/11/2017 Pneumococcal polysaccharide PPSV23 10/08/2021, Pneumococcal, Unspecified Formulation 04/09/2011 ,09/15/2004 Td (adult),2 Lf Tetanus Toxo id, PF, Adsorbed 01/13/2018 Td, unspecified formulation 04/21/2002, 3 Tdap 04/21/2002 Social History Tobacco Use Types Packs/Day Years Used Date Smoking Tobacco: Every Day Cigarettes Smokeless Tobacco: Never Tobacco Cessation:Ready to Q uit: Not Asked; Counseling Given: Not Answered Alcohol Use Standard Drinks/Week Comments Not Currently [...] Orientation Straight 09/05/2017 12 :48 PM EDT Last Filed Vital Signs Vital Sign Reading Time Taken Comments Blood Pressure 100/68 02/21/2025 12:56 PM EDT Pulse 100 02/21/2025 12:56 PM EDT Temperature 36.5 C (97.7 F) 01/05/2025 12:50 PM EDT Respiratory Rate 16 10/08/2023 1:00 PM EDT Oxygen Saturation 93% 02/21/2025 12:56 PM EDT Inhaled Oxygen Concentration - - Weight 93.9 kg (207 lb) 02/21/2025 12:56 PM EDT Height 179.1 cm (5' 10.51 ) 02/21/2025 12:56 PM EDT Body Mass Index 29.27 02/21/2025 12:56 PM EDT Plan of Treatment Upcoming Encounters Date Type Department Care Team (Late st Contact Info) Description 08/21/2025 1:00 PM EST Office Visit [facility] [address] [place] [address] [address]rd Floor, [address] [place] [address] Kaci Moya, DENILSON [address] [facility], [address] [place] [address] [place] 01/11/2026 3:00 PM EDT Office Visit [facility] [address] [place] [address] Serg Marinelli DO [address] [place] [address] [email or web address] Health Maintenance Due Date Last Done Comments HEMOGLOBIN A1C 1959 DEPRESSION SCREENING 1971 SMOKING Hx and SMOKELESS TOBACCO SCREENING 1972 HEPATITIS C SCREENING 1977 HIV ONE-TIME SCREENING (18-65 YEARS) 1977 ZOSTER VACCINES (1 of 2) 1978 COLOGUARD 2004 FIT TEST 2004 FOBT 2004 SIGMOIDOSCOPY 2004 VIRTUAL COLONOSCOPY 2004 RSV VACCINE (1 - Risk 50-74 years 1-dose series) 2009 ABDOMINAL AORTIC ANEURYSM (AAA) SCREENING 2024 01/22/2019 INFLUENZA VACCINE (#1) 2025 4, 03/21/2023, 03/04/2023, Additional history exists COVID-19 VACCINE (4 - season) 2025 04/04/2021, 09/17/2020, 08/27/2020 BLOOD PRESSURE 08/21/2025 02/21/2025 DIABETIC EYE EXAM 08/30/2025 08/30/2024, 12/15/2023 CREATININE LEVEL 12/12/2025 12/12/2024, 02/2024, 09/22/2023, Additional history exists POTASSIUM LEVEL 12/12/2025 12/12/2024, 12/02/2024, 09/22/2023, Additional history exists PNEUMOCOCCAL VACCINES (50+ years) (4 of 4 - PCV20 or PCV21) 10/08/2026 10/08/2021, 06/16/2019, 01/11/2017 Adult Td,Tdap Booster 01/14/2028 01/13/2018 , 04/21/2002, 04/21/2002, Additional history exists COLONOSCOPY 10/07/2033 10/08/2023, 05/07/2020 COLORECTAL CANCER SCREENING 10/07/2033 HEPATITIS A VACCINES Aged Out 09/01/2004, 05/08/20 02 No longer eligible based on patient's age to complete this topic HIB VACCINES Aged Out No longer eligi ble based on patient's age to complete this topic MENINGOCOCCAL VACCINES (ACWY) Aged Out No longer eligible based on patient's age to complete this topic MENINGOCOCCAL VACCINES (B) Aged Out N o longer eligible based on patient's age to complete this topic Medical Devices Implanted Type Area Automotive Title Clerk Device Identifier Shelf Expiration Date Model / Serial / Lot Clip Hemostasis 360deg 235cm Resolution 360 Latex Free 2.8mm Channel Bx/20ea - [id number] Implanted:Qty: 2 on 05/07/2020 by Ron Harvey MD at [facility] N/A: Ascending Colon Montage [employer]ent [id number] 02/19/2023 [id number] / / [id number] Description:POST POLYP CLOSU RE RIGHT COLON Procedures Procedure Name Priority Date/Time Associated Diagnosis Comments COMPREHENSIVE METABOLIC PANEL Routine 12/12/2024 3:22 PM EDT History of lung cancer ENDOSCOPY, COLON 10/08/2023 12:[address] ABDOMEN/PELVIS WITH CONTRAST Routine 01/22/2019 4:06 AM EDT from Last 3 Months or Most Recently Relevant to Health Maintenance Results * Comprehensive metabolic panel (12/12/2024 3:22 PM EDT) SODIUM 140 133 - 146 mmol/L [facility] POTASSIUM 4.1 3.3 - 5.1 mmol/L [facility] CHLORIDE 105 96 - 108 mmol/L [facility] CO2 22 21 - 35 mmol/L [facility] BUN 15 6 - 19 mg/dL [facility] CREATININE 1.30 0.5 - 1.5 mg/dL [facility] GLUCOSE 95 70 - 99 mg/dL [facility] ALBUMIN 4.2 3.9 - 4.8 g/dL [facility] TOTAL PROTEIN 7.1 6.5 - 8.0 g/dL [facility] CALCIUM 9.7 8.4 - 10.3 mg/dL [facility] ALKALINE PHOSPHATASE 90 39 - 117 U/L [facility] TOTAL BILIRUBIN 0.3 0.0 - 1.2 mg/dL [facility] AST 19 0 - 37 U/L [facility] ALT 14 0 - 40 U/L [facility] GLOBULIN 2.9 1 - 4.8 g/dL [facility] EGFR 61 >59 mL/min/1.7 3m2 [facility] Comment:Estimated glomerular filtration rate calculated using the CKD-EPI refit equation. ANION GAP 17 10 - 20 mmol/L [facility] Blood 12/12/2024 3:22 PM EDT 12/12/2024 3:25 PM EDT us Serg Wright Yves DO LAB BLOOD ORDERABLES Final Result [facility] [address] [place] [address] * ENDOSCOPY, COLON (10/08/2023 12:15 PM EDT) Narrative Transcriptions Ron Harvey MD - 10/08/2023 12:15 PM EDT [facility] Patient Name: Jose Miguel Costa Attending MD:: RON HARVEY MD, Procedure Date: 10/08/2023 12:15 PM Date of : 1960 Age: 63 Admit Type: Outpatient Gender: Male Room: [place] [address] Referring MD: Porter Buenrostro Exam Type: Colonoscopy Indications: High risk colon cancer surveillance: Personalhistory of colonic polyps, Last colonoscopy: 2019 Medications: Monitored Anesthesia Care Procedure: Informed consent was obtained from the patientafter discussion of the indications, limitations, alternatives, benefits, and risks of the procedure. Risks specifically discussed include but are not limited to medication reactions, missed lesions, bleeding, perforation, or the need for emergent surgery. Throughout the procedure, the patient's blood pressure, pulse, end-tidal CO2, and oxygensaturations were monitored continuously. The Olympus adult variable colonoscope [id number] #[id number] was introduced through the anus and advanced to the ileocolonic anastomosis. The colonoscopy wasperformed without difficulty. The patient tolerated the procedure well. The quality of the bowelpreparation was adequate to identify polyps. Anatomicallandmarks were photographed. Complications: No immediate complications. Estimated blood loss:None. Findings: The perianal and digital rectal examinations were normal. Three sessile polyps were found in the rectum, descending colon and transverse colon. The polypswere small in size. These polyps were removed with acold snare. Resection and retrieval were complete. Multiple small-mouthed diverticula were found inthe sigmoid colon and descending colon. The recto-sigmoid colon, sigmoid colon, splenic flexure, hepatic flexure, ascending colon, cecum, appendiceal orifice, anastomosis and ascendingcolon (on retroflexion) appeared normal. Impression: - Three small polyps in the rectum, in thedescending colon and in the transverse colon, removed with acold snare. Resected and retrieved. - Diverticulosis in the sigmoid colon and in the descending colon. - The ascending colon (on retroflexion), sigmoid colon, splenic flexure, hepatic flexure, ascending colon, cecum, colonic anastomosis, recto-sigmoidcolon and appendiceal orifice are normal. Recommendation: - Discharge patient to home. - High fiber diet. - Continue present medications. - Await pathology results. - Repeat colonoscopy in 5 years for surveillance. - I will send you pathology results by letter. Ifyou do not get results in 3 weeks telephone myoffice. - You have diverticulosis so please eat a highfiber diet. RON HARVEY MD 10/08/2023 12:41:26 PM This report has been signed electronically. Number of Addenda: 0 Note Initiated On: 10/08/2023 12:15 PM Procedure Code(s): --- Professional --- 34666, Colonoscopy, flexible; with removal of tumor(s), polyp(s), or other lesion(s) by snare technique --- Technical --- 65749, Colonoscopy, flexible; with removal of tumor(s), polyp(s), or other lesion(s) by snare technique Diagnosis Code(s): --- Professional --- Z86.010, Personal history of colonic polyps D12.8, Benign neoplasm of rectum D12.4, Benign neoplasm of descending colon D12.3, Benign neoplasm of transverse colon (hepatic flexure or splenic flexure) K57.30, Diverticulosis of large intestine without perforation or abscess without bleeding --- Technical --- Z86.010, Personal history of colonic polyps D12.8, Benign neoplasm of rectum D12.4, Benign neoplasm of descending colon D12.3, Benign neoplasm of transverse colon (hepatic flexure or splenic flexure) K57.30, Diverticulosis of large intestine without perforation or abscess without bleeding CPT copyright 2021 [employer]. All rights reserved. The codes documented in this report are preliminary and upon cargo handler reviewmay be revised to meet current compliance requirements. Procedure Date: 10/08/2023 12:15:31 PM [address] [place] [address] Porter Buenrostro MD GI PROCEDURE ORDE SHARON Final Result * CT ABDOMEN/PELVIS WITH CONTRAST (01/22/2019 4:06 AM EDT) Anatomical Region Laterality Modality Abdomen, Pelvis Computed Tomogra phy 01/22/2019 8:28 AM EDT Impressions 01/22/2019 9:00 AM EDT 1. No bowel dilatation to suggest obstruction. 2. Short segment of mildly distended colonic loop, immediately distal to the surgical suture, probably focal ileus. Remainder segments of the colon are decompressed. 3. Vague right hepatic lesion measuring 1.4 cm, incompletely characterized. Nonemergent MR study with liver protocol is recommended for further evaluation. Preliminary report was provided by Neda on January 22, 2019 at 4:59 AM Eastern time. TOTAL CTDIvol: 20.2 mGy POS - [id number] Narrative 01/22/2019 9:00 AM EDT EXAM: CT ABDOMEN/PELVIS WITH CONTRAST CT OF ABDOMEN AND PELVIS WITH INTRAVENOUS CONTRAST COMPARISON: None INDICATION: + PAIN- ABDOMINAL OR PELVIC [SIGN/SX] generalized abdominal pain, n/v TECHNIQUE: CT scan of the abdomen and pelvis was performed following the intravenous administration of 100 cc of Omnipaque 240 . Coronal and sagittal reformatted images were generated. Automated exposure control utilized. FINDINGS: LOWER THORAX: No lung consolidation. No pleural effusion. HEPATOBILIARY: Vague approximately 1.4 cm hypodensity in the right hepatic lobe (axial 3:8), incompletely characterized in this single phase study. Liver parenchyma is unremarkable. No extra- or intrahepatic ductal dilatation. Gallbladder is contracted. No calcified gallstones. SPLEEN: No splenomegaly. PANCREAS: Unremarkable. ADRENAL GLANDS: No mass KIDNEYS AND URETERS: The kidneys enhance symmetrically. No hydronephrosis, hydroureter or mass. STOMACH/GI TRACT: Small hiatal hernia. Stomach is partially distended, and filled with fluid and ingested content. No bowel dilatation to suggest obstruction. Surgical suture in the proximal colon. Approximately 9.5 cm long segment of proximal colon, immediately distal to the surgical sutures, is mildly distended and with air-fluid level. Remainder portions of the colon are decompressed. PELVIC ORGANS/BLADDER: Urinary bladder is partially distended and grossly unremarkable. Prostate gland is mildly enlarged. PERITONEUM AND RETROPERITONEUM: No free fluid, fluid collection or free air. LYMPH NODES: No enlarged retroperitoneal, mesenteric or pelvic lymph nodes. VESSELS: Mild atherosclerotic disease throughout the nonaneurysmal abdominal aorta and iliac arteries. Inferior vena cava is unremarkable. BONES AND SOFT TISSUES: Soft tissues are unremarkable. Mild degenerative changes at L5-S1. Procedure Note Thong Waller MD - 01/22/2019 EXAM: CT ABDOMEN/PELVIS WITH CONTRAST CT OF ABDOMEN AND PELVIS WITH INTRAVENOUS CONTRAST COMPARISON: None INDICATION: + PAIN- ABDOMINAL OR PELVIC [SIGN/SX] generalized abdominal pain, n/v TECHNIQUE: CT scan of the abdomen and pelvis was performed following theintravenous administration of 100 cc of Omnipaque 240 . Coronal andsagittal reformatted images were generated. Automated exposure controlutilized. FINDINGS: LOWER THORAX: No lung consolidation. No pleural effusion. HEPATOBILIARY: Vague approximately 1.4 cm hypodensity in the righthepatic lobe (axial 3:8), incompletely characterized in this single phasestudy. Liver parenchyma is unremarkable. No extra- or intrahepatic ductaldilatation. Gallbladder is contracted. No calcified gallstones. SPLEEN: No splenomegaly. PANCREAS: Unremarkable. ADRENAL GLANDS: No mass KIDNEYS AND URETERS: The kidneys enhance symmetrically. Nohydronephrosis, hydroureter or mass. STOMACH/GI TRACT: Small hiatal hernia. Stomach is partially distended,and filled with fluid and ingested content. No bowel dilatation to suggestobstruction. Surgical suture in the proximal colon. Approximately 9.5 cmlong segment of proximal colon, immediately distal to the surgicalsutures, is mildly distended and with air- fluid level. Remainder portionsof the colon are decompressed. PELVIC ORGANS/BLADDER: Urinary bladder is partially distended and grosslyunremarkable. Prostate gland is mildly enlarged. PERITONEUM AND RETROPERITONEUM: No free fluid, fluid collection or freeair. LYMPH NODES: No enlarged retroperitoneal, mesenteric or pelvic lymphnodes. VESSELS: Mild atherosclerotic disease throughout the nonaneurysmalabdominal aorta and iliac arteries. Inferior vena cava is unremarkable. BONES AND SOFT TISSUES: Soft tissues are unremarkable. Mild degenerativechanges at L5-S1. IMPRESSION: 1. No bowel dilatation to suggest obstruction. 2. Short segment of mildly distended colonic loop, immediately distal tothe surgical suture, probably focal ileus. Remainder segments of the colonare decompressed. 3. Vague right hepatic lesion measuring 1.4 cm, incompletelycharacterized. Nonemergent MR study with liver protocol is recommended forfurther evaluation. Preliminary report was provided by Neda on January 22, 2019 at 4:59 AMEastern time. TOTAL CTDIvol: 20.2 mGy POS - [id number] Camron Haque PA-C IMG CT ABD/PELVIS Final Result from Last 3 Months or Most Recently Relevant to Health [place] [address] MEDICARE PART A & B [facility] MEDICARE PART A & B [facility] MEDICARE PART A & B Member Subscriber Plan / Payer (Ef fective 2008-Present) Name:Jose Miguel Costa Member ID:[id number] Relation to Subscriber:Self Name:Jose Miguel Costa Subscriber ID:[id number] Payer ID:[id number] Group ID:Not on file Type:Medicare Address: [employer] [address] [place] [address] [place] [address] [facility] MEDICARE PART A & B [place] [facility] A & [facility] MEDIC[facility] PART A & B Member Subscriber Plan / Payer (Ef fective 2008-Present) Name:Jose Miguel Costa Member ID:[id number] Relation to Subscriber:Self Name:Jose Miguel Costa Subscriber ID:[id number] Payer ID:[id number] Group ID:Not on file Type:Medicare Address: [facility] [employer] [facility] [address] [place] [phone] [facility] MEDICARE PART A & B [place] [facility] [place] [address] MEDICARE PART A & B [place] [facility] MEDICARE PART A & B [facility] [place] [address] [employer] MEDICARE PART A & B Care Teams Nail Tech Relationship Specialty Start Date End Date Joe Sands MD [address] [place] [address] PCP - General Internal Medicine 09/05/17 Serg Marinelli DO [address] [place] [address] [email or web address] Primary Oncologist Hematology and Oncology 08/12/22 Laurie Olivier CNP [address] [place] [address] [email or web address] Nurse Practitioner Medical Oncology 10/11/23 Stephanie García FNP [address] [place] [address] [email or web address] Registered Nurse Nurse Practitioner 06/01/24 Additional Source Comments The information contained in this document represents components of the legal health record. It is not the complete legal health record.[facility]
--- OUTSIDE RECORDS SUMMARY | 2025-04-06 09:00 | XMS_ITS | Encounter Summary ---
Author Organization [facility] Address [address] [facility] [address] [place] [address] Phone Care Team Providers Care Risk Assessor Name Role Phone Joe Sands MD Primary Care Provider [phone] Serg Marinelli DO Unavailable [phone] Laurie Olivier SANDING MACHINE TENDER Unavailable Stephanie García EMPLOYEE BENEFITS MANAGER Unavailable [phone] Reason for Referral * Outpatient Procedure - Closed Specialty Diagnoses / Procedures Referred By Contac t Referred To Contact Diagnoses TIA (transient ischemic attack) Procedures Adult Echo TTE Angel Luis Evans MD Phone: tel: fax: mailto:[email or web address] Referral ID Status Reason Start Date Expiration Date Visits Re quested Visits Authorized [id number] Closed 02/05/2020 02/04/2021 1 1 Encounter Details Date Type Department Care Team (Latest Contact Info) Description 02/05/2020 Transcribe Orders Virtual Department [address] [place] [address] Angel Luis Eavns MD [address] [facility], [address] [place], [place] [phone] [email or web address] TIA (transient ischemic attack) (Primary Dx) Social History Tobacco Use Types Packs/Day Years [...] Description 08/21/2025 1:00 PM EST Office Visit [facility] [address] [facility] 3rd Floor, [address] [place] [address] Kaci Moya, [facility] 22 [facility], [address] [address] [place] 01/11/2026 3:00 PM EDT Office Visit [facility] at [address] [address] Serg Marinelli, DO [address] [place] [address] [email or web address] documented as of this encounter Results * US Carotid Duplex Complete (Bilateral) (03/07/2020 1:47 PM EDT) Anatomical Region Laterality Modality Heart, Thoracic Vasculature, Neck Ultrasound 03/07/2020 2:43 PM EDT Impressions 03/07/2020 2:45 PM EDT Mild right and mild to moderate left carotid plaquing without hemodynamically significant ICA stenoses detected. POS - [id number] Narrative 03/07/2020 2:45 PM EDT COMPARISON: None CAROTID ULTRASOUND FINDINGS: Color duplex Doppler evaluation the carotid arteries was performed. On the right there is a small amount of mixed calcified/noncalcified plaque present in the bulb. Peak systolic velocity in the distal CCA was measured 0.66 m/s and within the ICA at 0.85 m/s corresponding to a ratio of 1.29. No elevated diastolic velocities or significant ICA spectral broadening apparent. On the left there is a small to moderate amount of mixed plaque present in the bulb. Peak systolic velocity in the distal CCA was measured at 0.63 m/s and in the ICA at 0.70 m/s corresponding to a ratio of 1.11. No elevated diastolic velocities or significant ICA spectral broadening apparent. The above measurements are consistent with the presence of less than 50% ICA stenoses. Antegrade flow was demonstrated in both vertebral arteries. Any stenosis measurement is relative to the distal ICA diameters. Procedure Note Roderick Crawford MD - 03/07/2020 COMPARISON: None CAROTID ULTRASOUND FINDINGS: Color duplex Doppler evaluation the carotid arteries was performed. On the right there is a small amount of mixed calcified/noncalcifiedplaque present in the bulb. Peak systolic velocity in the distal CCA wasmeasured 0.66 m/s and within the ICA at 0.85 m/s corresponding to a ratioof 1.29. No elevated diastolic velocities or significant ICA spectralbroadening apparent. On the left there is a small to moderate amount of mixed plaque present inthe bulb. Peak systolic velocity in the distal CCA was measured at 0.63m/s and in the ICA at 0.70 m/s corresponding to a ratio of 1.11. Noelevated diastolic velocities or significant ICA spectral broadeningapparent. The above measurements are consistent with the presence of less than 50%ICA stenoses. Antegrade flow was demonstrated in both vertebralarteries. Any stenosis measurement is relative to the distal ICA diameters. IMPRESSION: Mild right and mild to moderate left carotid plaquing withouthemodynamically significant ICA stenoses detected. POS - [id number] us Angel Luis Evans MD CV US NEUROVASCULAR Final Re sult * TTE COMPREHENSIVE (03/07/2020 1:15 PM EDT) Body Surface Area 2.2 m2 Height 175 cm Weight 101 kg Systolic BP 151 mmHg Diastolic BP 83 mmHg Left Atrium Dimension Anterior-Posterior 39 15 - 40 mm Aortic Valve Mean Gradient 5 mmHg Aortic Valve Time Velocity Integral 275 mm Aortic Valve Peak Velocity 156.0 cm/s Aortic Valve Peak Gradient 10 mmHg Aortic Sinus Diameter 32 mm Ascending Aorta Diameter 29 mm Inferior Vena Cava Diameter 15 0.0 - 21 mm Interventricular Septum Thickness 11 mm Left Ventricle Internal Diameter End Diastole 49 42 - 58 mm Left Ventricle Internal Diameter End Systole 38 25 - 40 mm Left Ventricular Outflow Tract Diameter 20.0 mm LVOT VTI REST 182 mm Left Ventricular Outflow Tract Velocity 1.1 m/s Left Ventricular Outflow Tract Gradient at Rest 5 mmHg Left Ventricular Posterior Wall Thickness 13 mm Ejection Fraction 55 50 - 75 Percent Mitral Valve Deceleration Time 174 ms Mitral Valve A Wave Speed 90.2 cm/s Mitral Valve E Wave Speed 72.1 cm/s Right Ventricle Basal Diameter 32.3 25 - 41 mm Tricuspid Valve Peak Velocity 2.5 m/s Raw LV EF% 40 % Left Atrial Volume 52 mL Left Atrial Volume Index 23.64 mL/m2 Right Ventricle Peak Systolic Pressure 28 mmHg Right Ventricle TAPSE 21 mm Right Atrium Pressure Estimated 3 mmHg Right Ventricle to Right Atrium Pressure Gradient 25 mmHg Right Ventricle Pulse Doppler S Wave 17.0 cm/s Aortic Valve Sinus Index 1 15 20 - 32 mm Ascending Aorta Diameter 13 mm Aortic Sinus Index 15 mm Ascending Aorta Index 13 mm Anatomical Region Laterality Modality Heart Ultrasound Narrative 03/07/2020 2:12 PM EDT Mild LVH with normal LV systolic function EF 65%. Normal diastolic function. No significant valvular heart disease is seen. Normal RV size and function. Normal PA pressure estimation. No source of embolism could be identified. Left Ventricle Left ventricular cavity size is normal and the left ventricular wall thickness is increased. There is mild concentric left ventricular hypertrophy. Left ventricular systolic function is normal. There are no segmental left ventricular wall motion abnormalities noted. The estimated ejection fraction is 55% (Normal 50-75%). The left ventricular ejection fraction was measured by visual estimate. Left ventricular diastolic function appears within normal limits for age. There is no evidence of left ventricular thrombus. Right Ventricle The right ventricular size is normal. The right ventricular systolic function is normal. Left Atrium The left atrium is normal in size. The LA volume is 52 mL. The LA volume index is 23.64 mL/m2 (normal indexed value is 16-34 mL/m2). The pulmonary venous flow profiles are normal. Right Atrium The right atrium is normal in size. The IVC measures 15 mm (normal <=21 mm). The IVC demonstrates normal collapse with inspiration which is consistent with normal RA pressure. Mitral Valve E/A ratio is 0.8. E/E' avg is 7.5. Lat E' velocity is 10.1cm/s. Med E' velocity is 9.14cm/s. There is no evidence of mitral stenosis. There is mild increased thickening of the anterior mitral valve leaflet. There is trace mitral regurgitation detected by spectral and color Doppler. Tricuspid Valve The tricuspid valve appears normal. There is no evidence of tricuspid stenosis. There is evidence of trace tricuspid regurgitation by color and spectral Doppler. Peak TR is 2.5m/s. Normal pulmonary pressure. The RV systolic pressure was estimated from the peak TV regurgitant velocity. The estimated RV systolic pressure is 28 mmHg assuming a right atrial pressure of 3 mmHg. The calculated peak RV-RA pressure gradient is 25 mmHg. Aortic Valve The aortic valve appears normal. The aortic valve is tricuspid. There is mild thickening of multiple aortic leaflets. There is no evidence of valvular aortic stenosis. The peak aortic valve gradient is 10 mmHg. The mean aortic gradient is 5 mmHg. There is no evidence of aortic regurgitation by color and spectral Doppler. The visualized portions of the thoracic aorta appear normal. Pulmonic Valve The pulmonary valve appears normal. There is no evidence of pulmonic stenosis. There is no evidence of pulmonary regurgitation by color and spectral Doppler. Pericardium There is no evidence of pericardial effusion. Interatrial Septum There is no evidence of an atrial septal defect. General Findings Technically adequate echocardiogram. Technique(s) used in the evaluation: Color flow Doppler and Spectral Doppler. The predominant rhythm during the study was sinus. Comparison Findings No prior studies for comparison. us Angel Luis vEans MD CV ECHO ORDERABLES Final Res ult documented in this encounter Visit Diagnoses Diagnosis TIA (transient ischemic attack)- Primary Unspecified transient cerebral ischemia TIA (transient ischemic attack) Unspecified transient cerebral ischemia TIA (transient ischemic attack) Unspecified transient cerebral ischemia documented in this encounter Care Teams Risk Assessor Relationship Specialty Start Date End Date Joe Sands MD [address] [place] [address] PCP - General Internal Medicine 09/05/17 Serg Marinelli DO [address] [place] [address] [email or web address] Primary Oncologist Hematology and Oncology 08/12/22 Laurie Olivier CNP [address] [place] [address] [email or web address] Nurse Practitioner Medical Oncology 10/11/23 Stephanie García FNP [address] [place] [address] [email or web address] Registered Nurse Nurse Practitioner 06/01/24 documented as of this encounter Additional Source Comments The information contained in this document represents components of the legal health record. It is not the complete legal health record.[facility]
--- OUTSIDE RECORDS SUMMARY | 2025-04-06 09:00 | XMS_ITS | Encounter Summary ---
Author Organization [facility] Address [address] [facility] [address] [place] [address] Phone Care Team Providers Care Clerical Methods Analyst Name Role Phone Joe Sands MD Primary Care Provider Serg Marinelli DO Unavailable Laurie Olivier SEO CONSULTANT Unavailable Stephanie García TUBE DRAW HELPER Unavailable Encounter Details Date Type Department Care Team (Late st Contact Info) Description 02/23/2020 Ancillary Orders Non-Invasive Cardiology [address] [place] [address] Angel Luis Evans MD [address] [facility], [address] [place], [place] [id number] [email or web address] TIA (transient ischemic attack) Social History Tobacco Use Types Packs/Day Years [...] Description 08/21/2025 1:00 PM EST Office Visit [facility] 22 [place] [facility] 3rd Floor, [address] [place] [address] Kaci Moya, DENILSON 22 [facility], [address] [place] [address] [email or web address] 01/11/2026 3:00 PM EDT Office Visit [facility] [address] [place] [address] Serg Marinelli DO [address] [place] [address] [email or web address] Scheduled Orders Name Type Priority Associated Diagnoses Orde r Schedule MCT (Mobile Cardiac Telemetry) Cardiac Monitors Routine TIA (transient ischemic attack) Expected: 03/24/2020, Expires: 08/22/2020 documented as of this encounter Visit Diagnoses Diagnosis TIA (transient ischemic attack) Unspecified transient cerebral ischemia documented in this encounter Care Teams Clerical Methods Analyst Relationship Specialty Start Date End Date Joe Sands MD [address] [place] [address] PCP - General Internal Medicine 09/05/17 Serg Marinelli DO [address] [place] [address] [email or web address] Primary Oncologist Hematology and Oncology 08/12/22 Laurie Olivier CNP [address] [place] [address] [email or web address] Nurse Practitioner Medical Oncology 10/11/23 Stephanie García FNP [address] [place] [address] Registered Nurse Nurse Practitioner 06/01/24 documented as of this encounter Additional Source Comments The information contained in this document represents components of the legal health record. It is not the complete legal health record.[facility]
--- OUTSIDE RECORDS SUMMARY | 2025-04-06 09:00 | XMS_ITS | Encounter Summary ---
Author Organization [facility] Address [address] [facility] [address] [place] [address] Phone Care Team Providers Care Dormitory Counselor Name Role Phone Joe Sands MD Primary Care Provider [phone] Serg Marinelli DO Unavailable [phone] Laurie Oliveir WATER TAXI OPERATOR Unavailable Stephanie García RN OR LPN Unavailable [phone] Encounter Details Date Type Department Care Team (Late st Contact Info) Description 09/05/2017 [facility], Ct Scan - [address] [address] Social History Tobacco Use Types Packs/Day Years Used Date Smoking Tobacco: Every Day Smokeless Tobacco: Never Alcohol Use Standard Drinks/Week Comments No 0 (1 standard drink = 0.6 oz [...] Description 08/21/2025 1:00 PM EST Office Visit [facility] [address] [facility] 3rd Floor, [address] [place], [place] [phone] Kaci Moya, DENILSON 22 [facility], [address] [place], [place] [phone] 01/11/2026 3:00 PM EDT Office Visit [facility] [place] [address] [place] [address] Serg Marinelli DO [address] [place] [address] [email or web address] documented as of this encounter Visit Diagnoses Not on filedocumented in this encounter Care Teams Dormitory Counselor Relationship Specialty Start Date End Date Joe Sands MD [address] [place] [address] PCP - General Internal Medicine 09/05/17 Serg Marinelli DO [address] [place] [address] [email or web address] Primary Oncologist Hematology and Oncology 08/12/22 Laurie Olivier CNP [address] [place] [address] [email or web address] Nurse Practitioner Medical Oncology 10/11/23 Stephanie García FNP [address] [place] [address] [email or web address] Registered Nurse Nurse Practitioner 06/01/24 documented as of this encounter Additional Source Comments The information contained in this document represents components of the legal health record. It is not the complete legal health record.[facility]
--- OUTSIDE RECORDS SUMMARY | 2025-04-06 09:00 | XMS_ITS | Encounter Summary ---
Author Organization [facility] Address [address] [facility] [address] [place] [address] Phone Care Team Providers Care Dance Master Name Role Phone Joe Sands MD Primary Care Provider Serg Marinelli DO Unavailable [phone] Laurie Olivier HUB BANDER Unavailable Stephanie García RESEARCH AND DEVELOPMENT SPECIALIST Unavailable [phone] Encounter Details Date Type Department Care Team (Late st Contact Info) Description 09/05/2017 Procedure Pass [facility], Ct Scan - [address] [address] Social History Tobacco Use Types Packs/Day Years [...] Description 08/21/2025 1:00 PM EST Office Visit [facility] 22 [facility] 3rd Floor, [address] [place], [place] [phone] Kaci Moya, DENILSON 22 [facility], [address] [place], [place] [phone] 01/11/2026 3:00 PM EDT Office Visit [facility] [place] 30 [place] [address] Serg Marinelli DO 30 [place] [address] [email or web address] documented as of this encounter Visit Diagnoses Not on filedocumented in this encounter Care Teams Dance Master Relationship Specialty Start Date End Date Joe Sands MD [address] [place] [address] PCP - General Internal Medicine 09/05/17 Serg Marinelli DO [address] [place] [address] [email or web address] Primary Oncologist Hematology and Oncology 08/12/22 Laurie Olivier CNP [address] [place] [address] [email or web address] Nurse Practitioner Medical Oncology 10/11/23 Stephanie García FNP [address] [place] [address] [email or web address] Registered Nurse Nurse Practitioner 06/01/24 documented as of this encounter Additional Source Comments The information contained in this document represents components of the legal health record. It is not the complete legal health record.[facility]
--- OUTSIDE RECORDS SUMMARY | 2025-04-06 09:00 | XMS_ITS | Encounter Summary ---
Author Organization [facility] Address [address] [facility] [address] [place] [address] Phone Care Team Providers Care Earth Science Teacher Name Role Phone Joe Sands MD Primary Care Provider Serg Marinelli DO Unavailable [phone] Laurie Olivier CIVIL CLERK Unavailable Stephanie García MANUAL PLATE FILLER Unavailable [phone] Encounter Details Date Type Department Care Team (Late st Contact Info) Description 05/07/2020 Procedure Pass [facility]oscopy Admitting Dept Virtual Department [address] [place], [place] [phone] Social History Tobacco Use Types Packs/Day Years [...] Description 08/21/2025 1:00 PM EST Office Visit [facility] [address] [place] [address] 3rd Floor, [address] [place], [place] [phone] Kaci Moya, DENILSON [address] [place] [facility], [address] [place], [place] [phone] 01/11/2026 3:00 PM EDT [facility] [address] [place] [address] Serg Marinelli DO [address] [place] [address] [email or web address] documented as of this encounter Visit Diagnoses Not on filedocumented in this encounter Care Teams Earth Science Teacher Relationship Specialty Start Date End Date Joe Sands MD [address] [place] [address] PCP - General Internal Medicine 09/05/17 Serg Marinelli DO [address] [place] [address] [email or web address] Primary Oncologist Hematology and Oncology 08/12/22 Laurie Olivier CNP [address] [place] [address] [email or web address] Nurse Practitioner Medical Oncology 10/11/23 Stephanie García FNP [address] [place] [address] [email or web address] Registered Nurse Nurse Practitioner 06/01/24 documented as of this encounter Additional Source Comments The information contained in this document represents components of the legal health record. It is not the complete legal health record.[facility]
--- OUTSIDE RECORDS SUMMARY | 2025-04-06 09:00 | XMS_ITS | Encounter Summary ---
Author Organization [facility] Address [address] [facility] [address] [place] [address] Phone Care Team Providers Care Administrative Support Assistant Name Role Phone Joe Sands MD Primary Care Provider [phone] Serg Marinelli DO Unavailable Laurie Olivier WOOD FLOOR LAYER Unavailable Stephanie García GRANITE FABRICATOR Unavailable [phone] Encounter Details Date Type Department Care Team (Late st Contact Info) Description 11/09/2022 Procedure Pass [facility]oscopy Admitting Dept Virtual Department [address] [place] [address] [phone] Social History Tobacco Use Types Packs/Day Years [...] Description 08/21/2025 1:00 PM EST Office Visit [facility] 22 [facility] 3rd Floor, [address] [place] [address] Kaci Moya, DENILSON 22 [facility], [address] [place] [address] 01/11/2026 3:00 PM EDT Office Visit [facility] 30 [place] [address] Serg Marinelli DO 30 [place] [address] [email or web address] [facility] documented as of this encounter Visit Diagnoses Not on filedocumented in this encounter Care Teams Administrative Support Assistant Relationship Specialty Start Date End Date Joe Sands MD [address] [place] [address] PCP - General Internal Medicine 09/05/17 Serg Marinelli DO [address] [place] [address] [email or web address] Primary Oncologist Hematology and Oncology 08/12/22 Laurie Olivier CNP [address] [place] [address] [email or web address] Nurse Practitioner Medical Oncology 10/11/23 Stephanie García FNP [address] [place] [address] [email or web address] Registered Nurse Nurse Practitioner 06/01/24 documented as of this encounter Additional Source Comments The information contained in this document represents components of the legal health record. It is not the complete legal health record.[facility]
--- OUTSIDE RECORDS SUMMARY | 2025-04-06 09:00 | XMS_ITS | Encounter Summary ---
Author Organization [facility] Address [address] [place] [address] Phone Care Team Providers Care Power Lineworker Name Role Phone Joe Sands MD Primary Care Provider [phone] Serg Marinelli DO Unavailable [phone] Laurie Olivier SACK MAKER Unavailable Stephanie García SHIPPING TECHNICIAN Unavailable [phone] Encounter Details Date Type Department Care Team (Late st Contact Info) Description 10/08/2023 Procedure Pass [facility] Endoscopy Admitting Dept Virtual Department 30 [place], [place] [id number] Social History Tobacco Use Types Packs/Day Years [...] Description 08/21/2025 1:00 PM EST Office Visit [facility] 22 [facility] 3rd Floor, [address] [place] [address] Kaci Moya, [facility] 22 [facility], [address] [address] [email or web address] 01/11/2026 3:00 PM EDT Office Visit [facility] 30 [place] [address] Serg Marinelli DO 30 [place] [address] [email or web address] documented as of this encounter Visit Diagnoses Not on filedocumented in this encounter Care Teams Power Lineworker Relationship Specialty Start Date End Date Joe Sands MD [address] [place] [address] PCP - General Internal Medicine 09/05/17 Serg Marinelli DO [address] [place] [address] [email or web address] Primary Oncologist Hematology and Oncology 08/12/22 Laurie Olivier CNP 30 [place] [address] [email or web address] Nurse Practitioner Medical Oncology 10/11/23 Stephanie García FNP 30 [place] [address] [email or web address] Registered Nurse Nurse Practitioner 06/01/24 documented as of this encounter Additional Source Comments The information contained in this document represents components of the legal health record. It is not the complete legal health record.[facility]
--- OUTSIDE RECORDS SUMMARY | 2025-04-06 09:00 | XMS_ITS | Encounter Summary ---
Author Organization [facility] Address [address] [facility] [address] [place] [address] Phone Care Team Providers Care Salvager Helper Name Role Phone Joe Sands MD Primary Care Provider Serg Marinelli DO Unavailable Laurie Olivier KIER TENDER Unavailable Stephanie García STOCK DEALER Unavailable [phone] Encounter Details Date Type Department Care Team (Late st Contact Info) Description 04/14/2023 Procedure Pass [facility], Ct Scan - [address] [address] Social History Tobacco Use Types Packs/Day Years [...] Description 08/21/2025 1:00 PM EST Office Visit [facility] 22 [facility] 3rd Floor, [address] [place] [address] Kaci Moya, [place]IL[place] 22 [facility], [address] [place] [address] 01/11/2026 3:00 PM EDT Office Visit [facility] 30 [place] [address] Serg Marinelli DO 30 [place] [address] [email or web address] documented as of this encounter Visit Diagnoses Not on filedocumented in this encounter Care Teams Salvager Helper Relationship Specialty Start Date End Date Joe Sands MD [address] [place] [address] PCP - General Internal Medicine 09/05/17 Serg Marinelli DO [address] [place] [address] [email or web address] Primary Oncologist Hematology and Oncology 08/12/22 Laurie Olivier CNP [address] [place] [address] [email or web address] Nurse Practitioner Medical Oncology 10/11/23 Stephanie García FNP [address] [place] [address] [email or web address] Registered Nurse Nurse Practitioner 06/01/24 documented as of this encounter Additional Source Comments The information contained in this document represents components of the legal health record. It is not the complete legal health record.[facility]
--- OUTSIDE RECORDS SUMMARY | 2025-04-06 09:00 | XMS_ITS | Encounter Summary ---
Author Organization [facility] Address [address] [place] [address] Phone Care Team Providers Care Research Lab Assistant Name Role Phone Joe Sands MD Primary Care Provider Serg Marinelli DO Unavailable [phone] Laurie Olivier AUTOMOTIVE ELECTRICIAN HELPER Unavailable Stephanie García MILL OILER Unavailable [phone] Encounter Details Date Type Department Care Team (Late st Contact Info) Description 10/26/2022 Procedure Pass [facility] 30 [place] [address] Social History Tobacco Use Types Packs/Day Years Used Date Smoking Tobacco: Every Day Cigarettes Smokeless Tobacco: Never Alcohol Use Standard Drinks/Week Comments Yes 8 (1 standard drink = 0.6 oz pur e alcohol) Education Answer Date Recorded Are you interested in more education? Not on jerry e 10/16/2022 Are you concerned about learning? Not on file 10/16/2022 No 10/16/2022 No 10/16/2022 Sex and Gender Information Value Date Recorded Sex Assigned at Male 09/05/2017 12:48 PM EDT Legal Sex Male 8:33 PM EDT Gender Identity Male 09/05/2017 12:48 PM EDT Sexual Orientation Straight 09/05/2017 12 :48 PM EDT documented as of this encounter Plan of Treatment Upcoming Encounters Date Type Department Care Team (Late st Contact Info) Description 08/21/2025 1:00 PM EST Office Visit [facility] [address] [place] 3rd Floor, [address] [place] [address] Kaci Moya, DENILSON 22 [facility], [address] [place] [address] [email or web address] 01/11/2026 3:00 PM EDT Office [facility] [place] 30 [place] [address] Serg Marinelli DO 30 [place] [address] [email or web address] documented as of this encounter Visit Diagnoses Not on filedocumented in this encounter Care Teams Research Lab Assistant Relationship Specialty Start Date End Date Joe Sands MD [address] [place] [address] PCP - General Internal Medicine 09/05/17 Serg Marinelli DO [address] [place] [address] [email or web address] Primary Oncologist Hematology and Oncology 08/12/22 Laurie Olivier CNP [address] [place] [address] Nurse Practitioner Medical Oncology 10/11/23 Stephanie García FNP [address] [place] [address] [email or web address] Registered Nurse Nurse Practitioner 06/01/24 documented as of this encounter Additional Source Comments The information contained in this document represents components of the legal health record. It is not the complete legal health record.[facility]
== END 2025-04-06 08:37 | disposition home or self-care (01) ==
LOC: HO.HOSX 08:36
DX: Z13.89 Encounter for screening for other disorder (principal)

== ENCOUNTER 2025-05-21 07:56 | Outpatient (AMB) | payer MEDICARE, MEDICAID, SELFPAY ==
--- OUTSIDE RECORDS SUMMARY | 2018-07-27 03:00 | XMS_ITS | Continuity of Care Document ---
Author Organization [facility] Address [address] [place] [address] Phone Care Team Providers Care Etcher Electrolytic Name Role Phone Carrington LANE, Ashkarol Unavailable Unavailable Allergies, Adverse Reactions, Alerts Substance Reaction Status Criticality No Known Allergies Active No Inform ation Medications Medication Instructions Dosage Effective Dates (start - stop) Status Comments Aspirin Low Dose 81 mg tablet,delayed release take 1 tablet by oral route every day 81 MG - Active Axiron 30 mg/actuation (1.5 mL) transderm solution in metered pump apply 1 pump by topical route every day in the morning to each underarm for a total dose of 60 mg - Active Calcium 500 + D 500 mg (1,250 mg)-200 unit tablet take 1 Tablet by Oral route 2 times every day 1 Tablet - Active Centrum 3,500 unit-18 mg-0.4 mg chewable tablet take 1 tablet by oral route every day - Active HumatroPen 6 subcutaneous pen injector device - Active Fish Oil 1,000 mg (120 mg-180 mg) capsule take 1 capsule by oral route 2 times every day 1 capsule - Active Vitamin D3 1,000 unit capsule take 1 Tablet by Oral route every day 1 Tablet - Active Procedures Procedure Date Office/outpatient visit,est, mod 2018 Advance Directives Directive Yes / No Effective Date File Name No Information Encounters Encounter Description Practice Location Reason(s) For Visit Diagnoses Date Provider Office/outpati ent visit,est, mod [facility], [address] [place] [address], [id number], tel:[phone] [facility] 4 week post echo (chief complaint) Sinus bradycardia Carrington Mccullough [address] [place], [id number], . tel:[phone] [facility] [place], [facility] [address] [place], [id number], tel:[phone] [facility] No Information Carrington Womack [address], [facility] [place], [id number], . tel:[phone] [facility] [place], [facility] [address] [place], [id number], tel:[phone] [facility] Evaluation ST-T wave (chief complaint) Abnormal EKGSinus bradycardia Carrington Mccullough [facility] [address] [place] [address] [place], [id number], . tel:[phone] [facility] [place], [facility] [address] [place] [address] [place], [id number], tel:[phone] [facility] [place] No Information Carrington Mccullough [address] [place] [address] [place], [id number], . 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
--- OUTSIDE RECORDS SUMMARY | 2023-01-15 09:30 | XMS_ITS | Continuity of Care Document ---
Author Organization [facility] Address [address] [place] [phone] Phone Care Team Providers Care Buffing Machine Tender Name Role Phone Donavan Munoz MD Unavailable Unavailable Allergies, Adverse Reactions, Alerts Substance Reaction Status Criticality No Known Allergies Active No Inform ation Medications Medication Instructions Dosage Effective Dates (start - stop) Status Comments NORDITROPIN FLEXPRO (unknown strength) Not Available - Active TESTOSTERONE (unknown strength) Not Available - Active Procedures Procedure Date Office/outpatient visit,[facility] 2022 Advance Directives Directive Yes / No Effective Date File Name No Information Encounters Encounter Description Practice Location Reason(s) For Visit Diagnoses Date Provider Office/outpat ient visit,[facility], [address] [place] [address], [place], [id number], [place] tel:[phone] [facility] retina evaluation (chief complaint) Multiple defects of retina without detachment, right eyePVD (posterior vitreous detachment), bilateralNuclear sclerosis of both eyes Tammy Go. [address] [place] [address], [place], [address], [place]. tel:[phone] Family History Family Member Type Diagnosis Age At Onset No Information Payers Payer name Insurance type Covered republican ID Authoriza timelinda(s) Sarah [facility] [id number] Social History Type Description Quantity Date Captured Comments Alcohol Use Details Caffeine Use Details Unknown Tobacco Use Status Current non-smoker Smoking Status Never smoker Rah-28-[address] Non-Smoking Tobacco Use Details : No Details Available : No Details Available Sex Male Vital Signs Date / Time: [...] lens wearer. Instructions Date Instruction Additional Infor bryon Return in PRN Related to Multi ple defects of retina without detachment, right eye Impression/Plan - Ur [facility] same-day referral for retinal tears OD. There [...]
--- OUTSIDE RECORDS SUMMARY | 2025-05-21 08:00 | XMS_ITS | Encounter Summary ---
Author Organization [facility] Address [address] [facility] [address] [place] [address] Phone Care Team Providers Care Senior Software Manager Name Role Phone Joe Sands MD Primary Care Provider [phone] Yves Serg Wright DO Unavailable [phone] Soy Laurie ELECTRICAL INSPECTOR Unavailable Stephanie García UPTWIST SPINNER Unavailable [phone] Reason for Referral * MRI/CAT Scan - Closed Specialty Diagnoses / Procedures Referred By Contac t Referred To Contact Radiology Diagnoses Facial pain Trigeminal neuralgia Procedures MRI Brain Angel Luis Evans MD Phone: tel: fax: mailto:[email or web address] Referral ID Status Reason Start Date Expiration Date Visits Re quested Visits Authorized [id number] Closed 12/12/2019 12/11/2020 1 1 Encounter Details Date Type Department Care Team (Latest Contact Info) Description 12/12/2019 Transcribe Orders Virtual Department [address] [place] [address] Angel Luis Evans MD [address] [facility], [address] [place], [place] 40008[address] [email or web address] Facial pain (Primary Dx); Trigeminal neuralgia [...] Description 08/21/2025 1:00 PM EST Office Visit [facility] 22 [facility] 3rd Floor, [address] [place] [address] Kaci Moya, [facility] 22 [facility], [address] [address] [place] 01/11/2026 3:00 PM EDT Office Visit [facility] [place] [address] [address] Serg Marinelli, DO 30 [place] [address] [email or web address] documented as of this encounter Results * [...] mass, hemorrhage or acute infarction. There is kygw-es-[id number] nonspecific periventricular and scattered subcortical white matter [...] intracranial mass, hemorrhage or acuteinfarction. There is lxym-qc-anzknxdy nonspecific periventricular and scatteredsubcortical white matter and [...] neuralgia documented in this encounter Care Teams Senior Software Manager Relationship Specialty Start Date End Date Joe Sands MD [address] [place] [address] PCP - General Internal Medicine 09/05/17 Serg Marinelli DO [address] [place] [address] [email or web address] Primary Oncologist Hematology and Oncology 08/12/22 Laurie Olivier CNP [address] [place] [address] [email or web address] Nurse Practitioner Medical Oncology 10/11/23 Stephanie García FNP [address] [place] [address] [email or web address] Registered Nurse Nurse Practitioner 06/01/24 documented as of this encounter Additional Source Comments The information contained in this document represents components of the legal health record. It is not the complete legal health record.[facility]
--- OUTSIDE RECORDS SUMMARY | 2025-05-21 08:01 | XMS_ITS | Encounter Summary ---
Author Organization [facility] Address [address] [facility] [address] [place] [address] Phone Care Team Providers Care Stock Sheets Cleaner Inspector Name Role Phone Joe Sands MD Primary Care Provider Serg Marinelli DO Unavailable Laurie Olivier STRUCTURAL WORKER Unavailable Stephanie García FIRST RESPONDER Unavailable [phone] Encounter Details Date Type Department Care Team (Late st Contact Info) Description 11/09/2022 Procedure Pass [facility] Endoscopy Admitting Dept Virtual Department [address] [place] [address] [id number] Social History Tobacco Use Types Packs/Day Years [...] Description 08/21/2025 1:00 PM EST Office Visit [facility] 22 [facility] 3rd Floor, [address] [place] [address] Kaci Moya, DENILSON 22 [facility], [address] [place] [address] 01/11/2026 3:00 PM EDT Office [facility] 30 [place] [address] Serg Marinelli DO 30 [place] [address] [email or web address] documented as of this encounter Visit Diagnoses Not on filedocumented in this encounter Care Teams Stock Sheets Cleaner Inspector Relationship Specialty Start Date End Date Joe Snads MD [address] [place] [address] PCP - General Internal Medicine 09/05/17 Serg Marinelli DO [address] [place] [address] [email or web address] Primary Oncologist Hematology and Oncology 08/12/22 aLurie Olivier CNP [address] [place] [address] [email or web address] Nurse Practitioner Medical Oncology 10/11/23 Stephanie García FNP [address] [place] [address] [email or web address] Registered Nurse Nurse Practitioner 06/01/24 documented as of this encounter Additional Source Comments The information contained in this document represents components of the legal health record. It is not the complete legal health record.[facility]
--- OUTSIDE RECORDS SUMMARY | 2025-05-21 08:01 | XMS_ITS | Encounter Summary ---
Author Organization [facility] Address [address] [facility] [address] [place] [address] Phone Care Team Providers Care Vine Fruit Farming Supervisor Name Role Phone Joe Sands MD Primary Care Provider [phone] Serg Marinelli DO Unavailable [phone] Laurie Olivier CHAPLAIN RESIDENT Unavailable Stephanie García GRAPPLE YARDER OPERATOR Unavailable [phone] Encounter Details Date Type Department Care Team (Late st Contact Info) Description 10/08/2023 Procedure Pass [facility] Endoscopy Admitting Dept Virtual Department 30 [place], [place] [phone] Social History Tobacco Use Types Packs/Day Years [...] Description 08/21/2025 1:00 PM EST Office Visit [facility] [address] [facility] 3rd Floor, [address] [place] [address] Kaci Moya, [facility] 22 [facility], [address] [address] [email or web address] 01/11/2026 3:00 PM EDT Office Visit [facility] 30 [place] [address] Serg Marinelli DO 30 [place] [address] [email or web address] documented as of this encounter Visit Diagnoses Not on filedocumented in this encounter Care Teams Vine Fruit Farming Supervisor Relationship Specialty Start Date End Date Joe Sands MD [address] [place] [address] PCP - General Internal Medicine 09/05/17 Serg Marinelli DO [address] [place] [address] [email or web address] Primary Oncologist Hematology and Oncology 08/12/22 Laurie Olivier CNP 30 [place] [address] [email or web address] Nurse Practitioner Medical Oncology 10/11/23 Stephanie García FNP 30 [place] [address] [email or web address] Registered Nurse Nurse Practitioner 06/01/24 documented as of this encounter Additional Source Comments The information contained in this document represents components of the legal health record. It is not the complete legal health record.[facility]
--- OUTSIDE RECORDS SUMMARY | 2025-05-21 08:01 | XMS_ITS | Encounter Summary ---
Author Organization [facility] Address [address] [facility] [address] [place] [address] Phone Care Team Providers Care Disaster Recovery Manager Name Role Phone Joe Sands MD Primary Care Provider [phone] Serg Marinelli DO Unavailable [phone] Laurie Olivier OIL FURNACE INSTALLER Unavailable Stephanie García COMMERCIAL FRONT LOAD OPERATOR Unavailable [phone] Encounter Details Date Type Department Care Team (Late st Contact Info) Description 12/06/2023 Procedure Pass [facility], Ct Scan - [address] [address] Social History Tobacco Use Types Packs/Day Years [...] Description 08/21/2025 1:00 PM EST Office Visit [facility] [address] [place] [address] 3rd Floor, [address] [place] [address] Kaci Moya, [facility] 22 [facility], [address] [place] [address] [address] [email or web address] 01/11/2026 3:00 PM EDT Office Visit [facility] at [facility] 30 [place] [address] Serg Marinelli DO 30 [place] [address] [email or web address] documented as of this encounter Visit Diagnoses Not on filedocumented in this encounter Care Teams Disaster Recovery Manager Relationship Specialty Start Date End Date Joe Sands MD [address] [place] [address] PCP - General Internal Medicine 09/05/17 Serg Marinelli DO [address] [place] [address] [email or web address] Primary Oncologist Hematology and Oncology 08/12/22 Laurie Olivier CNP 30 [place] [address] [email or web address] Nurse Practitioner Medical Oncology 10/11/23 Stephanie García FNP 30 [place] [address] [email or web address] Registered Nurse Nurse Practitioner 06/01/24 documented as of this encounter Additional Source Comments The information contained in this document represents components of the legal health record. It is not the complete legal health record.[facility]
--- OUTSIDE RECORDS SUMMARY | 2025-05-21 08:01 | XMS_ITS | Encounter Summary ---
Author Organization [facility] Address [address] [place] [address] Phone Care Team Providers Care Gang Pusher Name Role Phone Joe Sands MD Primary Care Provider Serg Marinelli DO Unavailable Laurie Olivier STATION SUPERINTENDENT Unavailable Stephanie García SYSTEM SUPPORT ANALYST Unavailable [phone] Encounter Details Date Type Department Care Team (Late st Contact Info) Description 09/25/2022 Procedure Pass [facility], Ct Scan - [address] [address] Social History Tobacco Use Types Packs/Day Years [...] Description 08/21/2025 1:00 PM EST Office Visit [facility] [address] [place] [address] 3rd Floor, [address] [place], [place] [phone] Kaci Moya DNP 22 [facility], [address] [place], [place] [phone] 01/11/2026 3:00 PM EDT Office Visit [facility] [place] [facility] 30 [place] [address] Serg Marinelli DO 30 [place] [address] [email or web address] documented as of this encounter Visit Diagnoses Not on filedocumented in this encounter Care Teams Gang Pusher Relationship Specialty Start Date End Date Joe Sands MD [address] [place] [address] PCP - General Internal Medicine 09/05/17 Serg Marinelli DO [address] [place] [address] [email or web address] Primary Oncologist Hematology and Oncology 08/12/22 Laurie Olivier CNP [address] [place] [address] [email or web address] Nurse Practitioner Medical Oncology 10/11/23 Stephanie García FNP [address] [place] [address] [email or web address] Registered Nurse Nurse Practitioner 06/01/24 documented as of this encounter Additional Source Comments The information contained in this document represents components of the legal health record. It is not the complete legal health record.[facility]
--- OUTSIDE RECORDS SUMMARY | 2025-05-21 08:01 | XMS_ITS | Encounter Summary ---
Author Organization [facility] Address [address] [facility] [address] [place] [address] Phone Care Team Providers Care Drywall Finisher Name Role Phone Joe Sands MD Primary Care Provider Serg Marinelli DO Unavailable [phone] Laurie Olivier MIXER RUNNER Unavailable Stephanie García HOSPITALITY HOUSEKEEPER Unavailable [phone] Encounter Details Date Type Department Care Team (Late st Contact Info) Description 09/05/2017 Procedure Pass [facility], Ct Scan - [address] [address] Social History Tobacco Use Types Packs/Day Years [...] Description 08/21/2025 1:00 PM EST Office Visit [facility] 22 [facility] 3rd Floor, [address] [place], [place] [phone] Kaci Moya, DENILSON 22 [facility], [address] [place], [place] [address] 01/11/2026 3:00 PM EDT Office Visit [facility] [place] 30 [place] [address] Serg Marinelli DO 30 [place] [address] [email or web address] documented as of this encounter Visit Diagnoses Not on filedocumented in this encounter Care Teams Drywall Finisher Relationship Specialty Start Date End Date Joe Sands MD [address] [place] [address] PCP - General Internal Medicine 09/05/17 Serg Marinelli DO [address] [place] [address] [email or web address] Primary Oncologist Hematology and Oncology 08/12/22 Laurie Olivier CNP [address] [place] [address] [email or web address] Nurse Practitioner Medical Oncology 10/11/23 Stephanie García FNP [address] [place] [address] [email or web address] Registered Nurse Nurse Practitioner 06/01/24 documented as of this encounter Additional Source Comments The information contained in this document represents components of the legal health record. It is not the complete legal health record.[facility]
--- OUTSIDE RECORDS SUMMARY | 2025-05-21 08:01 | XMS_ITS | Encounter Summary ---
Author Organization [facility] Address [address] [place] [address] Phone Care Team Providers Care Bereavement Program Coordinator Name Role Phone Joe Sands MD Primary Care Provider Serg Marinelli DO Unavailable [phone] Laurie Olivier MANAGER LANDSCAPE Unavailable Stephanie García TANK FARM ATTENDANT Unavailable [phone] Encounter Details Date Type Department Care Team (Late st Contact Info) Description 10/26/2022 Procedure Pass [facility] 30 [place] [address] Social History Tobacco Use Types Packs/Day Years [...] Description 08/21/2025 1:00 PM EST Office Visit [facility] [address] [place] 3rd Floor, [address] [place] [address] Kaci Moya, DENILSON 22 [facility], [address] [place] [address] [email or web address] 01/11/2026 3:00 PM EDT Office Visit [facility] [place] 30 [place] [address] Serg Marinelli DO 30 [place] [address] [email or web address] documented as of this encounter Visit Diagnoses Not on filedocumented in this encounter Care Teams Bereavement Program Coordinator Relationship Specialty Start Date End Date Joe Sands MD [address] [place] [address] PCP - General Internal Medicine 09/05/17 Serg Marinelli DO [address] [place] [address] [email or web address] Primary Oncologist Hematology and Oncology 08/12/22 Laurie Olivier CNP [address] [place] [address] Nurse Practitioner Medical Oncology 10/11/23 Stephanie García FNP [address] [place] [address] [email or web address] Registered Nurse Nurse Practitioner 06/01/24 documented as of this encounter Additional Source Comments The information contained in this document represents components of the legal health record. It is not the complete legal health record.[facility]
--- OUTSIDE RECORDS SUMMARY | 2025-05-21 08:01 | XMS_ITS | Clinical Summary ---
Author Organization [facility] Address 399 [facility] [address] [place] [address] Phone Care Team Providers Care Centrifugal Casting Machine Tender Name Role Phone Joe Sands MD Primary Care Provider Serg Marinelli DO Unavailable Laurie Olivier MULE SPINNER Unavailable Stephanie García SPRAYER OPERATOR Unavailable Allergies Active Allergy Reactions Criticality Noted [...] Active ferrous sulfate 324 mg (65 mg [place] iron) TbEC Take 324 mg by mouth [...] EDT): This to be managed at the [facility]. He tells me that his last A1c [...] Description 02/21/2025 1:30 PM EDT Office Visit [facility] 3[facility], [address] [place] [address] Kaci Moya, DENILSON Bilateral carotid bruits (Primary Dx); Benign essential hypertension; Claudication in peripheral vascular disease from Last [...] Description 08/21/2025 1:00 PM EST Office Visit [facility] 22 [facility] 3rd Floor, [address] [place] [address] Kaci Moya, DENILSON 22 [facility], [address] [place] [address] [email or web address] 01/11/2026 3:00 PM EDT Office Visit [facility] at [address] [address] Serg Marinelli, 30 [place] [address] [email or web address] Health Maintenance Due Date Last Done Comments [...] SCREENING 2024 01/22/2019 INFLUENZA VACCINE (#1) 2025 , 03/21/2023, 03/04/2023, Additional history exists COVID-19 VACCINE ( season) 2025 04/04/2021, 09/17/2020, 08/27/2020 BLOOD PRESSURE 08/21/2025 02/21/2025 DIABETIC EYE EXAM 08/30/2025 08/30/2024, 12/15/2023 CREATININE LEVEL 12/12/2025 12/12/2024, 02/2024, 09/22/2023, Additional history exists POTASSIUM LEVEL 12/12/2025 12/12/2024, 12/02/2024, 09/22/2023, Additional history exists PNEUMOCOCCAL VACCINES (50+ years) (4 of 4 - PCV20 or PCV21) 10/08/2026 10/08/2021, 06/16/2019, 01/11/2017 Adult Td,Tdap Booster 01/14/2028 01/13/2018 , 04/21/2002, 04/21/2002, Additional history exists COLONOSCOPY 10/07/2028 10/08/2023, 05/07/2020 COLORECTAL CANCER SCREENING 10/07/2028 HEPATITIS A VACCINES Aged Out 09/01/2004, 05/08/20 [...] this topic Medical Devices Implanted Type Area Color Shop Helper Device Identifier Shelf Expiration Date Model / Serial / Lot Clip Hemostasis 360deg 235cm Resolution 360 Latex Free 2.8mm Channel Bx/20ea - [id number] Implanted:Qty: 2 on 05/07/2020 by Ron Harvey MD at [facility] N/A: Ascending Colon iwoca [id number] 02/19/2023 [id number] / / [id number] Description:POST POLYP CLOSU RE RIGHT COLON Procedures Procedure Name Priority Date/Time Associated Diagnosis Comments COMPREHENSIVE METABOLIC PANEL (CMP) Routine 12/12/2024 3:22 PM EDT History of lung cancer ENDOSCOPY, COLON 10/08/2023 12:[address] ABDOMEN/PELVIS WITH CONTRAST Routine 01/22/2019 4:06 AM EDT from Last 3 Months or Most Recently Relevant to Health Maintenance Results * Comprehensive metabolic panel (12/12/2024 3:22 PM EDT) SODIUM 140 133 - 146 mmol/L [facility] POTASSIUM 4.1 3.3 - 5.1 mmol/L [facility] CHLORIDE 105 96 - 108 mmol/L [facility] CO2 22 21 - 35 mmol/L [facility] BUN 15 6 - 19 mg/dL [facility] CREATININE 1.30 0.5 - 1.5 mg/dL [facility] GLUCOSE 95 70 - 99 mg/dL [facility] ALBUMIN 4.2 3.9 - 4.8 g/dL [facility] TOTAL PROTEIN 7.1 6.5 - 8.0 g/dL [facility] CALCIUM 9.7 8.4 - 10.3 mg/dL [facility] ALKALINE PHOSPHATASE 90 39 - 117 U/L [facility] TOTAL BILIRUBIN 0.3 0.0 - 1.2 mg/dL [facility] AST 19 0 - 37 U/L [facility] ALT 14 0 - 40 U/L [facility] GLOBULIN 2.9 1 - 4.8 g/dL [facility] EGFR 61 >59 mL/min/1.7 3m2 [facility] Comment:Estimated glomerular filtration rate calculated using the CKD-EPI refit equation. ANION GAP 17 10 - 20 mmol/L [facility] Blood 12/12/2024 3:22 PM EDT 12/12/2024 3:25 PM EDT us Serg W Yves DO LAB BLOOD BKR ORDERABLES Fi nal Result [facility] [address] [place] [address] * ENDOSCOPY, COLON (10/08/2023 12:15 PM EDT) Narrative Transcriptions Ron Harvey MD - 10/08/2023 12:15 PM EDT [facility] Patient Name: Jose Miguel Costa Attending MD:: RON HARVEY MD, Procedure Date: 10/08/2023 12:15 PM Date of : 1960 Age: 63 Admit Type: Outpatient Gender: Male Room: [place] [address] Referring MD: Porter Buenrostro Exam Type: Colonoscopy [...] monitored continuously. The Olympus adult variable colonoscope [id number] #6 was introduced through the anus and [...] 12:15 PM Procedure Code(s): --- Professional --- 86994, Colonoscopy, flexible; with removal of tumor(s), polyp(s), or other lesion(s) by snare technique --- Technical --- 59068, Colonoscopy, flexible; with removal of tumor(s), polyp(s), [...] or abscess without bleeding CPT copyright 2021 [employer]. All rights reserved. The codes documented in this report are preliminary and upon ergonomist reviewmay be revised to meet current compliance requirements. Procedure Date: 10/08/2023 12:15:31 PM [address] [place] [address] Porter Buenrostro MD GI PROCEDURE BAILEE HERRERA Final Result * CT ABDOMEN/PELVIS WITH CONTRAST [...] further evaluation. Preliminary report was provided by [facility] on January 22, 2019 at 4:59 AM [...] forfurther evaluation. Preliminary report was provided by [facility] on January 22, 2019 at 4:59 AMEastern time. TOTAL CTDIvol: 20.2 mGy POS - [id number] Camron Haque PA-C IMG CT ABD/PELVIS Final Result from Last 3 Months or Most Recently Relevant to Health Maintenance Insurance MEDICARE PART A & B [facility] MEDICARE PART A [place] [id number] [facility] MEDICARE PART A & B [facility] MED[facility] A & B [facility] [address] MEDICARE PART A & B [facility] MEDICARE PART A & B [facility] MEDICARE PART A & B [facility] [address] MEDICARE PART A & B [facility] MEDICARE PART A & B [facility] [place] [address] [employer] MEDICARE PART A & B Care Teams Centrifugal Casting Machine Tender Relationship Specialty Start Date End Date Joe Sands MD [address] [place] [address] PCP - General Internal Medicine 09/05/17 Serg Marinelli DO [address] [place] [address] [email or web address] Primary Oncologist Hematology and Oncology 08/12/22 Laurie Olivier CNP [address] [place] [address] [email or web address] Nurse Practitioner Medical Oncology 10/11/23 Stephanie García FNP [address] [place] [address] [email or web address] Registered Nurse Nurse Practitioner 06/01/24 Additional Source Comments The information contained in this document represents components of the legal health record. It is not the complete legal health record.[facility]
--- OUTSIDE RECORDS SUMMARY | 2025-05-21 08:01 | XMS_ITS | Encounter Summary ---
Author Organization [facility] Address [address] [facility] [address] [place] [address] Phone Care Team Providers Care Nurses' Registry Director Name Role Phone Joe Sands MD Primary Care Provider Serg Marinelli DO Unavailable [phone] Laurie Olivier TRIM STENCIL MAKER Unavailable Stephanie Gracía EMERGENCY PLANNER Unavailable [phone] Encounter Details Date Type Department Care Team (Late st Contact Info) Description 04/02/2023 Procedure Pass [facility] Endoscopy Admitting Dept Virtual Department [address] [place] [address] [phone] Social History Tobacco Use Types Packs/Day Years [...] Description 08/21/2025 1:00 PM EST Office Visit [facility] 22 [facility] 3rd Floor, [address] [place] [address] Kaci Moya, DENILSON 22 [facility], [address] [place] [address] 01/11/2026 3:00 PM EDT Office Visit [facility] 30 [place] [address] Serg Marinelli DO 30 [place] [address] [email or web address] documented as of this encounter Visit Diagnoses Not on filedocumented in this encounter Care Teams Nurses' Registry Director Relationship Specialty Start Date End Date Joe Sands MD [address] [place] [address] PCP - General Internal Medicine 09/05/17 Serg Marinelli DO [address] [place] [address] [email or web address] Primary Oncologist Hematology and Oncology 08/12/22 Laurie Olivier CNP [address] [place] [address] [email or web address] Nurse Practitioner Medical Oncology 10/11/23 Stephanie García FNP [address] [place] [address] [email or web address] Registered Nurse Nurse Practitioner 06/01/24 documented as of this encounter Additional Source Comments The information contained in this document represents components of the legal health record. It is not the complete legal health record.[facility]
--- OUTSIDE RECORDS SUMMARY | 2025-05-21 08:01 | XMS_ITS | Encounter Summary ---
Author Organization [facility] Address [address] [facility] [address] [place] [address] Phone Care Team Providers Care Firer Retort Name Role Phone Joe Sands MD Primary Care Provider Serg Marinelli DO Unavailable [phone] Laurie Olivier BRIDGE INSTRUCTOR Unavailable Stephanie García DIETARY TECH Unavailable [phone] Encounter Details Date Type Department Care Team (Late st Contact Info) Description 07/07/2022 Procedure Pass [facility] Endoscopy Admitting Dept Virtual Department 30 [place], [place] [phone] Social History Tobacco Use Types Packs/Day Years [...] Description 08/21/2025 1:00 PM EST Office Visit [facility] [address] [place] [address] 3rd Floor, [address] [place], [place] [phone] Kaci Moya, DENILSON 22 [facility], [address] [place], [place] [phone] 01/11/2026 3:00 PM EDT Office Visit [facility] 30 [place] [address] Serg Marinelli DO 30 [place] [address] [email or web address] documented as of this encounter Visit Diagnoses Not on filedocumented in this encounter Care Teams Firer Retort Relationship Specialty Start Date End Date Joe Sands MD [address] [place] [address] PCP - General Internal Medicine 09/05/17 Serg Marinelli DO [address] [place] [address] [email or web address] Primary Oncologist Hematology and Oncology 08/12/22 Laurie Olivier CNP [address] [place] [address] [email or web address] Nurse Practitioner Medical Oncology 10/11/23 Stephanie García FNP [address] [place] [address] [email or web address] Registered Nurse Nurse Practitioner 06/01/24 documented as of this encounter Additional Source Comments The information contained in this document represents components of the legal health record. It is not the complete legal health record.[facility]
--- OUTSIDE RECORDS SUMMARY | 2025-05-21 08:01 | XMS_ITS | Encounter Summary ---
Author Organization [facility] Address [address] [facility] [address] [place] [address] Phone Care Team Providers Care Immigration Manager Name Role Phone Joe Sands MD Primary Care Provider Serg Marinelli DO Unavailable [phone] Laurie Olivier SOUND CONTROLLER Unavailable Stephanie García COIN MACHINE COLLECTOR Unavailable [phone] Encounter Details Date Type Department Care Team (Late st Contact Info) Description 09/05/2017 Procedure Pass [facility], Ct Scan - [address] [address] Social History Tobacco Use Types Packs/Day Years [...] Description 08/21/2025 1:00 PM EST Office Visit [facility] 22 [facility] 3rd Floor, [address] [place], [place] [phone] Kaci Moya, DENILSON 22 [facility], [address] [place], [place] [phone] 01/11/2026 3:00 PM EDT Office Visit [facility] [place] [address] [place] [address] Serg Marinelli DO 30 [place] [address] [email or web address] documented as of this encounter Visit Diagnoses Not on filedocumented in this encounter Care Teams Immigration Manager Relationship Specialty Start Date End Date Joe Sands MD [address] [place] [address] PCP - General Internal Medicine 09/05/17 Serg Marinelli DO [address] [place] [address] [email or web address] Primary Oncologist Hematology and Oncology 08/12/22 Laurie Olivier CNP [address] [place] [address] [email or web address] Nurse Practitioner Medical Oncology 10/11/23 Stephanie García FNP [address] [place] [address] [email or web address] Registered Nurse Nurse Practitioner 06/01/24 documented as of this encounter Additional Source Comments The information contained in this document represents components of the legal health record. It is not the complete legal health record.[facility]
--- OUTSIDE RECORDS SUMMARY | 2025-05-21 08:01 | XMS_ITS | Encounter Summary ---
Author Organization [facility] Address [address] [facility] [address] [place] [address] Phone Care Team Providers Care Archivist Economic History Name Role Phone Joe Sands MD Primary Care Provider [phone] Serg Marinelli DO Unavailable [phone] Laurie Olivier QUILTING SUPERVISOR Unavailable Stephanie García CLAIMS AUDITOR Unavailable [phone] Reason for Referral * Outpatient Procedure - Closed Specialty Diagnoses / Procedures Referred By Contac t Referred To Contact Diagnoses TIA (transient ischemic attack) Procedures Adult Echo TTE Angel Luis Evans MD Phone: tel: fax: mailto:[email or web address] Referral ID Status Reason Start Date Expiration Date Visits Re quested Visits Authorized [id number] Closed 02/05/2020 02/04/2021 1 1 Encounter Details Date Type Department Care Team (Latest Contact Info) Description 02/05/2020 Transcribe Orders Virtual Department [address] [place] [address] Angel Luis Evans MD [address] [facility], [address] [place], [place] [phone] [email or web address] TIA (transient ischemic attack) (Primary Dx) [...] Description 08/21/2025 1:00 PM EST Office Visit [facility] 22 [facility] 3rd Floor, [address] [place] [address] Kaci Moya, [facility] 22 [facility], [address] [address] al[place] 01/11/2026 3:00 PM EDT Office Visit [facility] at [address] [address] Serg Marinelli, DO 30 [place] [address] [email or web address] documented as of this encounter Results * US Carotid Duplex Complete (Bilateral) (03/07/2020 1:47 PM EDT) Anatomical Region Laterality Modality Heart, Thoracic Vasculature, Neck Ultrasound 03/07/2020 2:43 PM EDT Impressions 03/07/2020 2:45 PM EDT Mild right and mild to moderate left carotid plaquing without hemodynamically significant ICA stenoses detected. POS - [id number] Narrative 03/07/2020 2:45 PM EDT COMPARISON: None [...] withouthemodynamically significant ICA stenoses detected. POS - [id number] us Angel Luis Evans MD CV US [...] prior studies for comparison. us Angel Luis Evans MD CV ECHO ORDERABLES Final Res ult documented in this encounter Visit Diagnoses Diagnosis TIA (transient ischemic attack)- Primary Unspecified transient cerebral ischemia TIA (transient ischemic attack) Unspecified transient cerebral ischemia TIA (transient ischemic attack) Unspecified transient cerebral ischemia documented in this encounter Care Teams Archivist Economic History Relationship Specialty Start Date End Date Joe Sands MD [address] [place] [address] PCP - General Internal Medicine 09/05/17 Serg Marinelli DO 30 [place] [address] [email or web address] Primary Oncologist Hematology and Oncology 08/12/22 Laurie Olivier CNP [address] [place] [address] [email or web address] Nurse Practitioner Medical Oncology 10/11/23 Stephanie García FNP [address] [place] [address] [email or web address] Registered Nurse Nurse Practitioner 06/01/24 documented as of this encounter Additional Source Comments The information contained in this document represents components of the legal health record. It is not the complete legal health record.[facility]
--- OUTSIDE RECORDS SUMMARY | 2025-05-21 08:01 | XMS_ITS | Encounter Summary ---
Author Organization [facility] Address 399 [facility] [address] [place] [address] Phone Care Team Providers Care Save All Operator Name Role Phone Joe Sands MD Primary Care Provider Serg Marinelli DO Unavailable [phone] Laurie Olivier UNIVERSITY SERVICES PROGRAM ASSOCIATE Unavailable Stephanie García MOLD STRIPPER Unavailable [phone] Encounter Details Date Type Department Care Team (Late st Contact Info) Description 04/14/2023 Procedure Pass [facility], Ct Scan - [address] [address] Social History Tobacco Use Types Packs/Day Years [...] Description 08/21/2025 1:00 PM EST Office Visit [facility] 22 [facility] 3rd Floor, [address] [place] [address] Kaci Moya, DENILSON 22 [facility], [address] [place] [address] 01/11/2026 3:00 PM EDT Office Visit [facility] 30 [place] [address] Serg Marinelli DO 30 [place] [address] [email or web address] documented as of this encounter Visit Diagnoses Not on filedocumented in this encounter Care Teams Save All Operator Relationship Specialty Start Date End Date Joe Sands MD [address] [place] [address] PCP - General Internal Medicine 09/05/17 Serg Marinelli DO [address] [place] [address] [email or web address] Primary Oncologist Hematology and Oncology 08/12/22 Laurie Olivier CNP [address] [place] [address] [email or web address] Nurse Practitioner Medical Oncology 10/11/23 Stephanie García FNP [address] [place] [address] [email or web address] Registered Nurse Nurse Practitioner 06/01/24 documented as of this encounter Additional Source Comments The information contained in this document represents components of the legal health record. It is not the complete legal health record.[facility]
--- OUTSIDE RECORDS SUMMARY | 2025-05-21 08:01 | XMS_ITS | Encounter Summary ---
Author Organization [facility] Address [address] [facility] [address] [place] [address] Phone Care Team Providers Care Wood Carving Lathe Operator Name Role Phone Joe Sands MD Primary Care Provider [phone] Serg Marinelli DO Unavailable [phone] Laurie Olivier FINANCIAL SPECIALIST Unavailable Stephanie García VOLUNTEER ASSISTANT Unavailable [phone] Reason for Referral * MRI/CAT Scan - Closed Specialty Diagnoses / Procedures Referred By Contac t Referred To Contact Radiology Diagnoses Atypical facial pain Arthralgia of right temporomandibular joint Procedures CT Neck Deedee Mary PA-C Phone: tel: fax: mailto:[email or web address] Referral ID Status Reason Start Date Expiration Date Visits Re quested Visits Authorized [id number] Closed 08/24/2019 08/23/2020 1 1 Encounter Details Date Type Department Care Team (Latest Contact Info) Description 08/24/2019 Transcribe Orders Virtual Department 30 [place] [address] Deedee Mary PA-C [address] [place] [address] [email or web address] Atypical facial pain (Primary Dx); Arthralgia of [...] Description 08/21/2025 1:00 PM EST Office Visit [facility] 22 [facility] 3rd Floor, [address] [place] [address] Kaci Moya, DENILSON 22 [facility], [address] [address] 01/11/2026 3:00 PM EDT Office Visit [facility] at [address] [address] Serg Marinelli DO 30 [place] [address] [email or web address] documented as of this encounter [...] joint documented in this encounter Care Teams Wood Carving Lathe Operator Relationship Specialty Start Date End Date Joe Sands MD [address] [place] [address] PCP - General Internal Medicine 09/05/17 Serg Marinelli DO [address] [place] [address] [email or web address] Primary Oncologist Hematology and Oncology 08/12/22 Laurie Olivier CNP [address] [place] [address] [email or web address] Nurse Practitioner Medical Oncology 10/11/23 Stephanie García FNP [address] [place] [address] [email or web address] Registered Nurse Nurse Practitioner 06/01/24 documented as of this encounter Additional Source Comments The information contained in this document represents components of the legal health record. It is not the complete legal health record.[facility]
--- OUTSIDE RECORDS SUMMARY | 2025-05-21 08:01 | XMS_ITS | Encounter Summary ---
Author Organization [facility] Address [address] [place] [address] Phone Care Team Providers Care Pipe Coverer Helper Name Role Phone Joe Sands MD Primary Care Provider Serg Marinelli DO Unavailable Laurie Olivier CONCRETE WORKER Unavailable Stephanie García ASSOCIATE BUSINESS ANALYST Unavailable [phone] Encounter Details Date Type Department Care Team (Late st Contact Info) Description 05/07/2020 Procedure Pass [facility] Endoscopy Admitting Dept Virtual Department [address] [place], [place] [id number] Social History Tobacco Use Types Packs/Day Years [...] Description 08/21/2025 1:00 PM EST Office Visit [facility] [address] [place] [address] 3rd Floor, [address] [place], [place] [phone] Kaci Moya, DENILSON [address], [address] [place], [place] [phone] 01/11/2026 3:00 PM EDT [facility] [address] [place] [address] Serg Marinelli DO [address] [place] [address] [email or web address] documented as of this encounter Visit Diagnoses Not on filedocumented in this encounter Care Teams Pipe Coverer Helper Relationship Specialty Start Date End Date Joe Sands MD [address] [place] [phone] PCP - General Internal Medicine 09/05/17 Serg Marinelli DO [address] [place] [phone] [email or web address] Primary Oncologist Hematology and Oncology 08/12/22 Laurie Olivier CNP [address] [place] [phone] [email or web address] Nurse Practitioner Medical Oncology 10/11/23 Stephanie García FNP [address] [place] [address] [email or web address] Registered Nurse Nurse Practitioner 06/01/24 documented as of this encounter Additional Source Comments The information contained in this document represents components of the legal health record. It is not the complete legal health record.[facility]
--- OUTSIDE RECORDS SUMMARY | 2025-05-21 08:01 | XMS_ITS | Encounter Summary ---
Author Organization [facility] Address [address] [place] [address] Phone Care Team Providers Care Pouako Kura [place] Maori Name Role Phone Joe Sands MD Primary Care Provider Serg Marinelli DO Unavailable [phone] Laurie Olivier AIRCRAFT MACHINIST HELPER Unavailable Stephanie García ALL SOURCE INTELLIGENCE Unavailable [phone] Encounter Details Date Type Department Care Team (Late st Contact Info) Description 12/12/2019 Procedure Pass [address] [place] [address] Social History Tobacco Use Types Packs/Day Years [...] EST Office Visit [facility] [address] [facility] [address] [facility] 3rd Floor, [address] [place], [place] [phone] Kaci Moya, DENILSON 22 [facility], [address] [place] [address] 01/11/2026 3:00 PM EDT Office Visit [facility] [place] [address] [place] [address] Serg Marinelli DO 30 [place] [address] [email or web address] documented as of this encounter Visit Diagnoses Not on filedocumented in this encounter Care Teams Pouako Kura [place] Maori Relationship Specialty Start Date End Date Joe Sands MD [address] [place] [phone] PCP - General Internal Medicine 09/05/17 Serg Marinelli DO [address] [place] [phone] [email or web address] Primary Oncologist Hematology and Oncology 08/12/22 Laurie Olivier CNP [address] [place] [address] [email or web address] Nurse Practitioner Medical Oncology 10/11/23 Stephanie García FNP [address] [place] [phone] [email or web address] Registered Nurse Nurse Practitioner 06/01/24 documented as of this encounter Additional Source Comments The information contained in this document represents components of the legal health record. It is not the complete legal health record.[facility]
--- OUTSIDE RECORDS SUMMARY | 2025-05-21 08:01 | XMS_ITS | Encounter Summary ---
Author Organization [facility] Address [address] [place] [address] Phone Care Team Providers Care Account Executive Agribusiness Name Role Phone Joe Sands MD Primary Care Provider Serg Marinelli DO Unavailable [phone] Laurie Olivier SECONDARY SCHOOL REGISTRAR Unavailable Stephanie García SUPERVISOR TANK STORAGE Unavailable Encounter Details Date Type Department Care Team (Late st Contact Info) Description 02/23/2020 Ancillary Orders Non-Invasive Cardiology [address] [place] [address] Angel Luis Evans MD [address] [place], [place] [phone] [email or web address] TIA (transient ischemic attack) Social [...] Description 08/21/2025 1:00 PM EST Office Visit [facility] [address] [facility] 3rd Floor, [address] [place] [address] Kaci Moya, DENILSON [address] [facility], [address] [place] [address] [email or web address] 01/11/2026 3:00 PM EDT Office Visit [facility] 30 [place] [address] Serg Marinelli DO 30 [place] [address] [email or web address] Scheduled Orders Name Type Priority Associated Diagnoses Orde r Schedule MCT (Mobile Cardiac Telemetry) Cardiac Monitors Routine TIA (transient ischemic attack) Expected: 03/24/2020, Expires: 08/22/2020 documented as of this encounter Visit Diagnoses Diagnosis TIA (transient ischemic attack) Unspecified transient cerebral ischemia documented in this encounter Care Teams Account Executive Agribusiness Relationship Specialty Start Date End Date Joe Sands MD [address] [place] [phone] PCP - General Internal Medicine 09/05/17 Serg Marinelli DO [address] [place] [phone] [email or web address] Primary Oncologist Hematology and Oncology 08/12/22 Laurie Olivier CNP [address] [place] [address] [email or web address] Nurse Practitioner Medical Oncology 10/11/23 Stephanie García FNP [address] [place] [address] Registered Nurse Nurse Practitioner 06/01/24 documented as of this encounter Additional Source Comments The information contained in this document represents components of the legal health record. It is not the complete legal health record.[facility]
--- OUTSIDE RECORDS SUMMARY | 2025-05-21 08:01 | XMS_ITS | Encounter Summary ---
Author Organization [facility] Address [address] [place] [address] Phone Care Team Providers Care Instructional Aide Name Role Phone Joe Sands MD Primary Care Provider [phone] Serg Marinelli DO Unavailable [phone] Laurie Olivier HOME ENERGY AUDITOR Unavailable Stephanie García END PACKER Unavailable [phone] Encounter Details Date Type Department Care Team (Late st Contact Info) Description 06/08/2024 Procedure Pass [facility], Ct Scan - [address] [address] Social History Tobacco Use Types Packs/Day Years [...] Description 08/21/2025 1:00 PM EST Office Visit [facility] [address] [place] [address] 3rd Floor, [address] [place] [address] Kaci Moya, [facility] [address] [facility], [address] [address] [email or web address] 01/11/2026 3:00 PM EDT Office Visit [facility] 30 [place] [address] Serg Marinelli DO 30 [place] [address] [email or web address] documented as of this encounter Visit Diagnoses Not on filedocumented in this encounter Care Teams Instructional Aide Relationship Specialty Start Date End Date Joe Sands MD [address] [place] [address] PCP - General Internal Medicine 09/05/17 Serg Marinelli DO [address] [place] [phone] [email or web address] Primary Oncologist Hematology and Oncology 08/12/22 Laurie Olivier CNP 30 [place] [address] [email or web address] Nurse Practitioner Medical Oncology 10/11/23 Stephanie García FNP 30 [place] [address] [email or web address] Registered Nurse Nurse Practitioner 06/01/24 documented as of this encounter Additional Source Comments The information contained in this document represents components of the legal health record. It is not the complete legal health record.[facility]
[2025-05-21 08:36] VITALS: BMI 30.6
--- NOTE | 2025-05-21 08:36 | A.OFFVIS_ITS ---
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 Patient reports for the past year he has been experiencing pain on his right 2nd, 3rd, 4th, and 5th digits. Patient states his hand has been locked since, without the ability to make a full fist. He denies any numbness or tingling. He denies any known injuries to the right had. Patient states he was seeing at [facility], last seen by them about 9 months ago. He brings a Right Hand MRI report that was done 07/15/24. He is here for a second opinion. IMPRESSION:Capsular edema surroundingthe 5th metacarpal phalangeal joint without discrete tear. Findings are nonspecific and could reflect sprain or inflammatory process. Allergies No Known Allergies Allergy (Verified 05/21/25 08:37) HPI HPI COMMISSIONING ENGINEER- Rt hand pain: Details: Jose Miguel is a 64 year old right hand dominant male who presents today as a New Patient for evaluation of Right Hand Pain. Patient reports for the past year he has been experiencing pain on his right 2nd, 3rd, 4th, and 5th digits. Patient states his hand has been locked for approximately 1 year, without the ability to make a full fist. He denies any numbness or tingling. He denies any known injuries to the right hand. Patient states that he ?woke up 1 day and my hand was like this? Patient states he was seeing at [facility], last seen by them about 9 months ago. He brings a Right Hand MRI report that was done 07/15/24. He is here for a second opinion. IMPRESSION:Capsular edema surroundingthe 5th metacarpal phalangeal joint without discrete tear. Findings are nonspecific and could reflect sprain or inflammatory process. [facility] Medical History (Updated 05/21/25 @ 09:26 by ABDIEL Hernández) Chronic kidney disease (CKD) Hypertension Coronary artery disease Diabetes Surgical History History of partial colectomy Social History (Updated 05/21/25 @ 08:42 by TAYLER Eaton) Household Members: None Housing: House Do you presently have visiting nurse or other home services: No Alcohol intake: current Alcohol intake frequency: a few times a month Patient Tobacco Use Status: Current everyday Tobacco user Tobacco use type: Cigarette Cigarettes Per Day: 10 service: Yes Current occupational status: disabled Current occupation: rt handed Review of Systems Const All systems reviewed & are unremarkable except as noted in HPI and below Physical Exam Vital Signs: BMI result Body Mass Index 30.6 Extrem Other: Patient is alert, oriented, and in no acute distress. Neuro: Normal sensation of the tips of all digits of the right hand at this time Vascular: Cap refill brisk Pain: Minimal tenderness to palpation noted about the MCP, PIP, and D IP joints of the 3rd through 5th digits of the right hand Patient reports significant pain with attempts at passive flexion and extension of the MCP joints of the 3rd through 5th digits of the right hand, worst in the small finger Patient does report pain with flexion and extension of the D IP and PIP joints of the same digits, but this is not nearly as painful as the MCP joints ROM: Minimal active flexion or extension of the 3rd through 5th digits of the right hand Patient is able to actively flex and extend the thumb and index finger of the right hand without difficulty Skin: Small, scabbed over the abrasion noted over the PIP joint of the right small finger No other lacerations or abrasions. General: No ecchymosis, erythema, or evidence of infection. Psych: Appears grossly normal Affect normal Attitude cooperative Results Reviewed Results Reviewed: X-rays obtained in the office today and independently reviewed by me, Jayy Nguyễn PA-C, demonstrate no fracture or acute bony abnormality of the right hand. 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 Flexion contracture of the 3rd through 5th digits of right hand No known injury or other causative event Onset approximately 1 year ago Patient is educated about this condition Patient is educated that options may be fairly limited with regards to this flexion contracture, however I feel it is best for the patient to be seen by the hand surgeon Dr. Galindo due to the chronic nature of this contracture coupled with the lack of any injury or known inciting event No other symptoms of potential nervous injury or issue at this time Patient will follow-up in 3-[address] 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
== END 2025-05-21 09:03 | disposition home or self-care (01) ==
LOC: HO.HOS 07:56
PROVIDERS: PCP Internal Medicine
DX: M24.541 Contracture, right hand (principal)
CPT/HCPCS: 99203

== ENCOUNTER 2025-05-21 07:56 | Outpatient (REF) | payer MEDICARE, MEDICAID, SELFPAY ==
--- NOTE | ~2025-05-21 | XR_ITS ---
EXAMINATION: XR HAND, RIGHT CLINICAL INFORMATION: M79.641 - Pain in right hand COMPARISON: None available. TECHNIQUE: PA, lateral, and oblique views of the right hand. FINDINGS: Technologist notes patient unable to flatten fingers. Evaluation limited to atypical positioning, overlapping structures. No visible acute fracture or gross dislocation. No significant joint space narrowing of the radiocarpal, intercarpal joints. Limited evaluation of the carpometacarpal, interphalangeal joints. MCP joint spaces appear grossly maintained.. No obvious erosions or soft tissue calcifications. XR/XR hand RT min 3V IMPRESSION: No gross acute osseous finding seen. Limited study, positioning, overlapping structures limiting evaluation. Recommend follow-up/repeat radiograph. Electronically signed by: Chai Billy MD 05/21/2025 10:50 AM [facility]
== END 2025-05-21 07:57 | disposition home or self-care (01) ==
LOC: HO.HOSX 07:56
PROVIDERS: PCP Internal Medicine
DX: M24.541 Contracture, right hand (principal)
CPT/HCPCS: 73130; 99202

== ENCOUNTER → 2025-05-21 08:28 | Outpatient (BNV) | payer MEDICARE, MEDICAID, SELFPAY | PROVIDERS: PCP Internal Medicine; Visit Provider Radiology Diagnostic Ultrasound | DX: M79.641 Pain in right hand (principal) | CPT/HCPCS: 73130 ==

== ENCOUNTER 2025-06-20 11:20 | Outpatient (AMB) | payer MEDICARE, MEDICAID, SELFPAY ==
--- OUTSIDE RECORDS SUMMARY | 2018-07-27 03:00 | XMS_ITS | Continuity of Care Document ---
Author Organization [facility] Address [address] [facility] [address] [place] [address] Phone Care Team Providers [facility] Name Role Phone Carrington LANE, Ashit Unavailable Unavailable Allergies, Adverse Reactions, Alerts Substance Reaction Status Criticality No Known Allergies Active No Inform ation Medications Medication Instructions Dosage Dose Quantity Effective Dates (start - stop) Status Indication Fill Status Comments Aspirin Low Dose 81 mg tablet,delay ed release take 1 tablet by oral route every day 81 MG 1 tablet 8 - Active Axiron 30 mg/actuation (1.5 mL) transderm solution in metered pump apply 1 pump by topical route every day in the morning to each underarm for a total dose of 60 mg 81 MG 1 tablet 8 - Active Calcium 500 + D 500 mg (1,250 mg)-200 unit tablet take 1 Tablet by Oral route 2 times every day 1 - 0 Tablet 8 - Active Centrum 3,500 unit-18 mg-0.4 mg chewable tablet take 1 tablet by oral route every day 8 - Active HumatroPen 6 subcutaneous pen injector device 81 MG 1 tablet 8 - Active Fish Oil 1,000 mg (120 mg-180 mg) capsule take 1 capsule by oral route 2 times every day 1 capsule 8 - Active Vitamin D3 1,000 unit capsule take 1 Tablet by Oral route every day 1 Tablet 8 - Active Problems Condition Type Effective Dates (start - stop) Diagnosed Date Clinical Status Comments Sinus bradycardia Problem (finding) Active (qualifier value) Procedures Procedure Date Office/outpatient visit,est, mod 2018 Advance Directives Directive Yes / No Effective Date File Name No Information Encounters Encounter Description Practice Location Reason(s) For Visit Diagnoses Date Provider Encounter Disposition Office/outpa tient visit,cadence sands [facility], [facility] [address], [place], [place], [id number], tel:[phone] [facility] 4 week post echo (chief complaint) Sinus bradycardia 9 Shultzhumphrey Kaur. [address], [place], [place], [id number], [place]. tel:[phone] [facility], [facility] [address], [place], [place], [id number], tel:[phone] [facility] No Information 9 Carrington Kaur. [address], [place], [place], [id number], [place]. tel:[phone] [facility], [facility] [address], [place], [place], [id number], [place] tel:[phone] [facility] Evaluation ST-T wave (chief complaint) Abnormal EKGSinus bradycardia 8 Shultzhumphrey Thompsonit. [address], [place], [place], [id number], [place]. tel:[phone] [facility], [facility] [address], [place], [place], [id number], tel:[phone] [facility] [place] No Information 8 Shultzhumphrey Kaur. [address], [place], [place], [id number], [place]. tel:[phone] Family History Family Member Type Diagnosis Age At Onset Father Problem (finding) Valvular heart disease Payers Payer name Insurance type Identifiers Authorization(s) Com ments No Information Social History Type Description Quantity Date Captured Comments Alcohol Use Details Caffeine Use Details Unknown Tobacco Use Status Current non-smoker Smoking Status Never smoker Sex Male Current Gender Male (finding) Vital Signs Date / Time: Height Weight BMI Pulse Rate Blood Pressure Temperature Respiratory Rate Body Surface Area Head Circumference Head Circ. Percentile Wt./Warren. Percentile BMI percentile Pulse Ox Inhaled Ox 8:09 AM 73.00 in 99.337 kg (219.00 lbs) 28.8 9 kg/m eter (2) 54 /min 136/78 mm[Hg] Chief Complaint And Reason For Visit From encounter dated '07/27/2018 08:00'. 4 week post echo (chief complaint). Description: Mr. Costa is here for a follow-up visit to reviewhis echo results. I had recently seen him as initial consultation for an abnormal EKG where he was found to have a baseline sinus bradycardia and possible Q waves in the inferior leads.He has no symptoms of angina heart failure or worsening conduction. At present he remains active without any symptoms of dizziness lightheadedness or chest pain.Based on our visit I had obtained an echocardiogram that shows normal left ventricular wall motion and systolic function without any significant valve disease. History Of Present Illness Encounter Date Complaint History Of Prese nt Illness 4 week post echo Mr. Costa is h ere for a follow-up visit to review his echo results. I had recently seen him as initial consultation for an abnormal EKG where he was found to have a baseline sinus bradycardia and possible Q waves in the inferior leads.He has no symptoms of angina heart failure or worsening conduction. At present he remains active without any symptoms of dizziness lightheadedness or chest pain.Based on our visit I had obtained an echocardiogram that shows normal left ventricular wall motion and systolic function without any significant valve disease. Evaluation ST-T wave Mr. Costa is a 57-year-old gentleman who was referred for an abnormal EKG.He has no past medical history occluding no history of hypertension, diabetes, or coronary artery disease. He has history of pituitary adenoma that was resected at 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 He exercises 3 times a week and does spin spinning as well as treadmill at home. He spends for approximately 30 minutes and achieved a target heart rate of approximately 145 bpm without any associated symptoms.He has no family history of premature coronary artery disease or sudden cardiac . He has no history of alcohol abuse or smoking. Instructions Date Instruction Additional Infor bryon No Information Assessments Type Assessment Date assessment Sinus bradycardia
--- OUTSIDE RECORDS SUMMARY | 2023-01-15 09:30 | XMS_ITS | Continuity of Care Document ---
Author Organization [facility] Address [facility] [address] [place] [phone] Phone Care Team Providers [facility] Teacher Assistant Name Role Phone Donavan Munoz MD Unavailable Unavailable Allergies, Adverse Reactions, Alerts Substance Reaction Status Criticality No Known Allergies Active No Inform ation Medications Medication Instructions Dosage Dose Quantity Effective Dates (start - stop) Status Indication Fill Status Comments NORDITROPIN FLEXPRO (unknown strength) Not Availab le - Active TESTOSTERONE (unknown strength) Not Availab le - Active Problems Condition Type Effective Dates (start - stop) Diagnosed Date Clinical Status Comments Nuclear sclerosis Problem (finding) - Active (qualifier value) Posterior vitreous detachment Problem (finding) - Active (qualifier value) 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 Problem (finding) - Active (qualifier value) Procedures Procedure Date Office/outpatient visit,[facility] 2022 Advance Directives Directive Yes / No Effective Date File Name No Information Encounters Encounter Description Practice Location Reason(s) For Visit Diagnoses Date Provider Encounter Disposition Office/outpa tient visit,[facility], [facility], [facility] [place], [id number], [place] tel:[phone] [facility] retina evaluation (chief complaint) Multiple defects of retina without detachment, right eyePVD (posterior vitreous detachment), bilateralNuc lear sclerosis of both eyes 3 Tammy Go. [facility] [place], [address], [place]. tel:[phone] Family History Family Member Type Diagnosis Age At Onset No Information Payers Payer name Insurance type Identifiers Authorization(s) Com ramez [employer] [place] christophe ID: [id number] Name: Coverage Status Eligibility Check on: [id number] ship to Subscriber: selfPayer Address: [address], [place], [id number], [facility] Phone: [phone] Social History Type Description Quantity Date Captured Comments Alcohol Use Details Caffeine Use Details Unknown Tobacco Use Status Current non-smoker Smoking Status Never smoker Pt driv es Non-Smoking Tobacco Use Details : No Details Available : No Details Available Sex Male Current Gender Male (finding) Vital Signs Date / Time: Height Weight BMI Pulse Rate Blood Pressure Temperature Respiratory Rate Body Surface Area Head Circumference Head Circ. Percentile Wt./Warren. Percentile BMI percentile Pulse Ox Inhaled Ox 3:02 PM 45 /min 130/78 mm[Hg] Chief Complaint And Reason For Visit From encounter dated '01/15/2023 14:30'. retina evaluation (chief complaint). Description: 62 year old pt presents from Dr. Liriano for presumed HST OD. OU: No recent vision changes. Pt wears monovision CL. Pt notes some floaters x 5 years, denies flashes. No other recent vision changes/concerns. Pt taking growth hormone because of a pituitary gland sx. Pt taking testosterone. No other health conditions or meds taken. No gtt use. Contact lens wearer. History Of Present Illness Encounter Date Complaint History Of Prese nt Illness retina evaluation 62 year old pt presents from Dr. Liriano for presumed HST OD. OU: No recent vision changes. Pt wears monovision CL. Pt notes some floaters x 5 years, denies flashes. No other recent vision changes/concerns. Pt taking growth hormone because of a pituitary gland sx. Pt taking testosterone. No other health conditions or meds taken. No gtt use. Contact lens wearer. Instructions Date Instruction Additional Infor mation Return in PRN Related to Multi ple defects of retina without detachment, right eye Impression/Plan - Ur gent same-day referral for retinal tears OD. There is an operculated hole at 2:00 and two pigmented holes at 10:00 OD. Pt is asymptomatic. Low risk for progression to RD and LR would not necessarily reduce risk further. No other retinal breaks, tears, or detachments were seen on 360 degree exam. Retinal detachment precautions were discussed in detail with the patient (new floaters, flashes, or curtains), and pt was advised to call in immediately with changes in vision to prevent vision loss. Education materials were provided.Pt would like to keep care consolidated with Dr. Liriano and f/u here prn. Advised patient call in for worsening vision, new symptoms, or pain. Related to Multiple defects of retina without detachment, right eye Impression/Plan - Th ere are posterior vitreous detachments OU without a retinal tear or retinal detachment. No retinal breaks, tears, or detachments were seen on 360 degree exam. Retinal detachment precautions were discussed in detail with the patient (new floaters, flashes, or curtains), and pt was advised to call in immediately with changes in vision to prevent vision loss. Education materials were provided.Advised patient call in for worsening vision, new symptoms, or pain. Related to PVD (posterior vitreous detachment), bilateral Impression/Plan - Re commend monitoring with Dr. Liriano. Related to Nuclear sclerosis of both eyes Assessments Type Assessment Date assessment Multiple defects of retina witho ut detachment, right eye assessment PVD (posterior vitreous detachme nt), bilateral assessment Nuclear sclerosis of both eyes J impression Multiple defects of retina without detachment, right eye: H33.331 impression PVD (posterior vitreous detachme nt), bilateral: H43.813 impression Nuclear sclerosis of both eyes: H25.13
[2025-06-20 11:30] VITALS: BMI 30.6
--- NOTE | 2025-06-20 11:30 | MHC.OFFVIS ---
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 At patient last visit with Misha Hope, he was advised to be re-evaluated with Dr. Galindo due to the chronic nature of this contracture. Today patient states no changes since his last visit. Allergies No Known Allergies Allergy (Verified 06/20/25 11:33) HPI HPI OV-Flexion contracture R hand: Details: Jose Miguel is a 64 year old right hand dominant Diabetic man who presents with complaints of right hand flexion contracture. He complains of a contracture of his right middle, ring, and small fingers for ~1 year at this point. He says he just woke up with his fingers like this and he has not been able to extend them. He says he recently began OT hand therapy ~1 month ago, at the [facility]. He denies any locking or catching or any history of locking or catching. He denies any numbness or tingling. His says there is a change he may have had a stroke sometime in the past, but this is not confirmed. This was suggested by the [facility], which he regularly attends. [facility] Medical History (Updated 06/20/25 @ 12:12 by Toribio Meza) Chronic kidney disease (CKD) Hypertension Coronary artery disease Diabetes Surgical History History of partial colectomy Social History Household Members: None Housing: House Do you presently have visiting nurse or other home services: No Alcohol intake: current Alcohol intake frequency: a few times a month Patient Tobacco Use Status: Current everyday Tobacco user Tobacco use type: Cigarette Cigarettes Per Day: 10 service: Yes Current occupational status: disabled Current occupation: rt handed Review of Systems Const All systems reviewed & are unremarkable except as noted in HPI and below Physical Exam Vital Signs: BMI result Body Mass Index 30.6 Const General: cooperative, healthy appearing and no acute distress Orientation/consciousness: patient oriented x3 HEENT Head: Yes normocephalic and Yes atraumatic Eyes EOM: EOMs intact bilaterally Resp Effort & Inspection: normal respiratory effort and able to speak in complete sentences Cardio Jugular venous distension: no JVD Skin General skin exam: turgor normal Rashes: no rashes Neuro General: patient oriented x3 Extrem Other: Evaluation of Right Upper Extremity: The patient is alert, oriented, and in no acute distress Neuro: Median, Ulnar, Radial nerves motor and sensory intact and sensation is normal to the tips of all digits I did not appreciate intrinsic or thenar wasting. Vascular: Cap refill brisk ROM: He can bring all his fingers closed to a fist He can fully extend his thumb & index fingers Flexion contractures: Middle finger: MCP 30/PIP 70/DIP 5 Ring finger: MCP 45/PIP 80/DIP Neutral Small finger: MCP 80/PIP 80/DIP Neutral No evidence of Dupuytrens nodules, cords, or other evidence of Dupuytren's disease. The above fingers can not be brought into any further extension then noted above. He appears to have tightness of both the flexor tendons and then also of the joints themselves. We tried to work on ROM exercises today in clinic, he is not very tolerant of gentle stretching exercises today and we made no improvement. Skin: No lacerations or abrasions. General: No Ecchymosis. No Erythema or evidence of infection. From Right hand MRI report which was not found today: [facility], imaging not available IMPRESSION: Capsular edema surrounding the 5th metacarpal phalangeal joint without discrete tear. Findings are nonspecific and could reflect sprain or inflammatory process. Vick Toribio M.D 07/18/24 Psych Appearance: grossly normal Affect: normal affect Attitude: cooperative Assessment & Plan Assessment & Plan (1) Flexion contracture of joint of right hand: Comment: MF, RF, SF Code(s): M24.541 - Contracture, right hand Category: Medical (2) Stiffness of finger joint of right hand: Code(s): M25.641 - Stiffness of right hand, not elsewhere classified Category: Medical Plan Assessment & Plan: 1. Right middle finger flexion contracture MCP 30/PIP 70/DIP 5 2. Right middle finger flexion contracture MCP 45/PIP 80/DIP Neutral 3. Right middle finger flexion contracture MCP 80/PIP 80/DIP Neutral Etiology unclear, no evidence of Dupuytrens nodules, cords, or contractures No history of trigger fingers per patient Possible hx of a CVA in the past, and possible spasticity Duration: Patient says 9 months, but the woman with him believes it is longer than that. Patient reports that he ?woke up 1 morning with his hand like this? I educated him about this condition I discussed operative and non-operative treatment options No operative intervention indicated at this time I recommend he work on ROM exercises at home, 20+ times daily, and I stressed the importance of performing his exercises. He is unsure about working on his ROM due to his pain, and was not very tolerant of performing exercises today in clinic. I discussed this with him, it is unclear how well he may be able to participate in OT hand therapy. I ordered OT hand therapy to work on stretching, ROM, and normalizing function It is possible that he may benefit from a manipulation under anesthesia, more so of the middle finger PIP joint and MCP joint. The ring and middle finger contractures are more severe, and with presumed tightness of the flexor tendons I do not know that this would be beneficial. I am going to refer him to our investment manager for evaluation of possible spasticity of the deep finger flexors of the ulnar 3 digits of the right hand. He will follow up in 6-8 weeks for a ROM check & to see how he is doing. Scribed for Dayami Galindo MD by Toribio Meza, medical center representative, on 06/20/25 at 12:05 PM, EST. Orders: Orders OT Evaluation and Treatment Today M24.541 - Contracture, right hand, M25.641 - Stiffness of right hand, not elsewhere classified Coding Level of Care Code Est Pt Level 4 (87985) Diagnoses Flexion contracture of joint of right hand M24.541 Stiffness of finger joint of right hand M25.641
--- OUTSIDE RECORDS SUMMARY | 2025-06-20 12:58 | XMS_ITS | Encounter Summary ---
Author Organization [facility] Address [address] [facility] [address] [place] [address] Phone Care Team Providers Care Alarm Mechanic Name Role Phone Joe Sands MD Primary Care Provider + [phone] Serg Marinelli DO Unavailable [phone] Laurie Olivier AUDIO VISUAL COORDINATOR Unavailable Stephanie García AURICULAR THERAPIST Unavailable [phone] Reason for Referral * Outpatient Procedure - Closed Specialty Diagnoses / Procedures Referred By Contac t Referred To Contact Diagnoses TIA (transient ischemic attack) Procedures Adult Echo TTE Angel Luis Evans MD Phone: tel: fax: mailto:[email or web address] Referral ID Status Reason Start Date Expiration Date Visits Re quested Visits Authorized [id number] Closed 02/05/2020 02/04/2021 1 1 Encounter Details Date Type Department Care Team (Latest Contact Info) Description 02/05/2020 Transcribe Orders Virtual Department [address] [place] [address] Angel Luis Evans MD [address] [facility], [address] [place], [place] [phone] [email or web address] TIA (transient ischemic attack) (Primary Dx) [...] Description 08/21/2025 1:00 PM EST Office Visit [facility] [address] [facility] 3rd Floor, [address] [place] [address] Kaci Moya, [facility] 22 [facility], [address] [address] 01/11/2026 3:00 PM EDT Office Visit [facility] [place] [facility] at [address] [address] Serg Marinelli, 30 [place] [address] [email or web address] documented as of this encounter Results * US Carotid Duplex Complete (Bilateral) (03/07/2020 1:47 PM EDT) Anatomical Region Laterality Modality Heart, Thoracic Vasculature, Neck Ultrasound 03/07/2020 2:43 PM EDT Impressions 03/07/2020 2:45 PM EDT Mild right and mild to moderate left carotid plaquing without hemodynamically significant ICA stenoses detected. POS - [id number] Narrative 03/07/2020 2:45 PM EDT COMPARISON: None [...] withouthemodynamically significant ICA stenoses detected. POS - [id number] us Angel Luis Evans MD CV US [...] ischemia documented in this encounter Care Teams Alarm Mechanic Relationship Specialty Start Date End Date Joe Sands MD [address] [place] [address] PCP - General Internal Medicine 09/05/17 Serg Marinelli DO [address] [place] [address] [email or web address] Primary Oncologist Hematology and Oncology 08/12/22 Laurie Olivier CNP [address] [place] [address] [email or web address] Nurse Practitioner Medical Oncology 10/11/23 Stephanie García FNP [address] [place] [address] [email or web address] Registered Nurse Nurse Practitioner 06/01/24 documented as of this encounter Additional Source Comments The information contained in this document represents components of the legal health record. It is not the complete legal health record.[facility]
--- OUTSIDE RECORDS SUMMARY | 2025-06-20 12:58 | XMS_ITS | Encounter Summary ---
Author Organization [facility] Address [address] [facility] [address] [place] [address] Phone Care Team Providers Care Controlled Area Checker Name Role Phone Joe Sands MD Primary Care Provider [phone] Serg Marinelli DO Unavailable [phone] Laurie Olivier RESTAURANT SHIFT LEADER Unavailable Stephanie García FRONT DESK RECEPTIONIST Unavailable [phone] Encounter Details Date Type Department Care Team (Late st Contact Info) Description 12/06/2023 Procedure Pass [facility], Ct Scan - [address] [address] Social History Tobacco Use Types Packs/Day Years [...] Description 08/21/2025 1:00 PM EST Office Visit [facility] [address] [place] [address] 3rd Floor, [address] [place] [address] Kaci Moya, [address], [address] [address] alma [email or web address] 01/11/2026 3:00 PM EDT Office Visit [facility] [place] [facility] at [facility] 30 [place] [address] Serg Marinelli DO 30 [place] [address] [email or web address] documented as of this encounter Visit Diagnoses Not on filedocumented in this encounter Care Teams Controlled Area Checker Relationship Specialty Start Date End Date Joe Sands MD [address] [place] [address] PCP - General Internal Medicine 09/05/17 Serg Marinelli DO [address] [place] [address] ML@[email or web address]. CRIS Primary Oncologist Hematology and Oncology 08/12/22 Laurie Olivier CNP 30 [place] [address] [email or web address] Nurse Practitioner Medical Oncology 10/11/23 Stephanie García FNP [address] [place] [address] [email or web address] Registered Nurse Nurse Practitioner 06/01/24 documented as of this encounter Additional Source Comments The information contained in this document represents components of the legal health record. It is not the complete legal health record.[facility]
--- OUTSIDE RECORDS SUMMARY | 2025-06-20 12:58 | XMS_ITS | Encounter Summary ---
Author Organization [facility] Address [address] [facility] [address] [place] [address] Phone Care Team Providers Care Live Ammunition Inspector Name Role Phone Joe Sands MD Primary Care Provider [phone] Serg Marinelli DO Unavailable [phone] Laurie Olivier PASTORAL WORKER Unavailable Stephanie García FARMWORKER [employer] Unavailable [phone] Reason for Referral * MRI/CAT Scan - Closed Specialty Diagnoses / Procedures Referred By Contac t Referred To Contact Radiology Diagnoses Atypical facial pain Arthralgia of right temporomandibular joint Procedures CT Neck Deedee Mary PA-C Phone: tel: fax: mailto:[email or web address] Referral ID Status Reason Start Date Expiration Date Visits Re quested Visits Authorized [id number] Closed 08/24/2019 08/23/2020 1 1 Encounter Details Date Type Department Care Team (Latest Contact Info) Description 08/24/2019 Transcribe Orders Virtual Department 30 [place] [address] Deedee Mary PA-C [address] [place] [address] [email or web address] Atypical facial pain (Primary Dx); Arthralgia [...] Description 08/21/2025 1:00 PM EST Office Visit [facility] [address] [facility] 3rd Floor, [address] [place] [address] Kaci Moya, [facility] 22 [facility], [address] [address] 01/11/2026 3:00 PM EDT Office Visit [facility] [place] [facility] Oncology Clinic at [address] [address] Serg Marinelli DO 30 [place] [address] ML@[email or web address] documented as [...] joint documented in this encounter Care Teams Live Ammunition Inspector Relationship Specialty Start Date End Date Joe Sands MD [address] [place] [address] PCP - General Internal Medicine 09/05/17 Serg Marinelli DO [address] [place] [address] [email or web address] DU Primary Oncologist Hematology and Oncology 08/12/22 Laurie Olivier CNP [address] [place] [address] [email or web address] Nurse Practitioner Medical Oncology 10/11/23 Stephanie García FNP [address] [place] [address] Registered Nurse Nurse Practitioner 06/01/24 documented as of this encounter Additional Source Comments The information contained in this document represents components of the legal health record. It is not the complete legal health record.[facility]
--- OUTSIDE RECORDS SUMMARY | 2025-06-20 12:58 | XMS_ITS | Encounter Summary ---
Author Organization [facility] Address [address] [facility] [address] [place] [address] Phone Care Team Providers Care Client Service Supervisor Name Role Phone Joe Sands MD Primary Care Provider [phone] Yves Serg Wright DO Unavailable [phone] Soy Laurie SYSTEM ADMINISTRATION MANAGER Unavailable Stephanie García [facility] Unavailable [phone] Reason for Referral * MRI/CAT Scan - Closed Specialty Diagnoses / Procedures Referred By Contac t Referred To Contact Radiology Diagnoses Facial pain Trigeminal neuralgia Procedures MRI Brain Angel Luis Evans MD Phone: tel: fax: mailto:[email or web address] Referral ID Status Reason Start Date Expiration Date Visits Re quested Visits Authorized [id number] Closed 12/12/2019 12/11/2020 1 1 Encounter Details Date Type Department Care Team (Latest Contact Info) Description 12/12/2019 Transcribe Orders Virtual Department [address] [place] [address] Angel Luis Evans MD [address] [facility], [address] [place], [place] [id number] [email or web address] Facial pain (Primary Dx); Trigeminal neuralgia [...] Description 08/21/2025 1:00 PM EST Office Visit [facility] [address] [facility] 3rd Floor, [address] [place] [address] Kaci Moya, DENILSON [address] [facility], [address] [place] [address] alma 01/11/2026 3:00 PM EDT Office Visit [facility] [place] [facility]emat[facility] Oncology Clinic at [address] [address] Serg Marinelli, [address] [place] [address] ML@[email or web address] documented as of this encounter Results [...] mass, hemorrhage or acute infarction. There is [id number] nonspecific periventricular and scattered subcortical white matter [...] intracranial mass, hemorrhage or acuteinfarction. There is [id number] nonspecific periventricular and scatteredsubcortical white matter and [...] neuralgia documented in this encounter Care Teams Client Service Supervisor Relationship Specialty Start Date End Date Joe Sands MD [address] [place] [address] PCP - General Internal Medicine 09/05/17 Serg Marinelli DO 30 [place] [address] [email or web address] Primary Oncologist Hematology and Oncology 08/12/22 Laurie Olivier CNP [address] [place] [address] Nurse Practitioner Medical Oncology 10/11/23 Stephanie García FNP [address] [place] [address] Registered Nurse Nurse Practitioner 06/01/24 documented as of this encounter Additional Source Comments The information contained in this document represents components of the legal health record. It is not the complete legal health record.[facility]
--- OUTSIDE RECORDS SUMMARY | 2025-06-20 12:58 | XMS_ITS | Encounter Summary ---
Author Organization [facility] Address [address] [facility] [address] [place] [address] Phone Care Team Providers Care Data Processing Systems Project Planner Name Role Phone Joe Sands MD Primary Care Provider Serg Marinelli DO Unavailable Laurie Olivier SPRAY GUN REPAIRER HELPER Unavailable Stephanie García CASH REGISTER REPAIRER Unavailable Encounter Details Date Type Department Care Team (Late st Contact Info) Description 02/23/2020 Ancillary Orders Jossy Sanders Non-Invasive Cardiology [address] [place], [place] [phone] Angel Luis Evans MD [address] [place] [address], [address] [place], [place] [phone] [email or web address] TIA (transient ischemic attack) Social History [...] Description 08/21/2025 1:00 PM EST Office Visit [facility] [address] [place] [address] 3rd Floor, [address] [place] [address] Kaci Moya, DEINLSON 22 [facility], [address] [place] [address] [email or web address] 01/11/2026 3:00 PM EDT Office Visit [facility] [place] [facility]emat[facility] Oncology Clinic at [address] [address] Serg Marinelli DO 30 [place] [address] ML@[email or web address] Scheduled Orders Name Type Priority Associated Diagnoses Orde r Schedule MCT (Mobile Cardiac Telemetry) Cardiac Monitors Routine TIA (transient ischemic attack) Expected: 03/24/2020, Expires: 08/22/2020 documented as of this encounter Visit Diagnoses Diagnosis TIA (transient ischemic attack) Unspecified transient cerebral ischemia documented in this encounter Care Teams Data Processing Systems Project Planner Relationship Specialty Start Date End Date Joe Sands MD [address] [place] [address] PCP - General Internal Medicine 09/05/17 Serg Marinelli DO [address] [place] [address] [email or web address] Primary Oncologist Hematology and Oncology 08/12/22 Laurie Olivier CNP [address] [place] [address] [email or web address] Nurse Practitioner Medical Oncology 10/11/23 Stephanie García FNP [address] [place] [address] Registered Nurse Nurse Practitioner 06/01/24 documented as of this encounter Additional Source Comments The information contained in this document represents components of the legal health record. It is not the complete legal health record.[facility]
--- OUTSIDE RECORDS SUMMARY | 2025-06-20 12:59 | XMS_ITS | Encounter Summary ---
Author Organization [facility] Address [address] [facility] [address] [place] [address] Phone Care Team Providers Care General Counselor Name Role Phone Joe Sands MD Primary Care Provider [phone] Serg Marinelli DO Unavailable [phone] Laurie Olivier MACHINE SILVER STRIPPER Unavailable Stephanie García COPER HAND Unavailable [phone] Encounter Details Date Type Department Care Team (Late st Contact Info) Description 10/08/2023 Procedure Pass [facility] Admitting Dept Virtual Department 30 [place], [place] [phone] Social History Tobacco Use Types Packs/Day Years [...] Description 08/21/2025 1:00 PM EST Office Visit [facility] [address] [place] [address] 3rd Floor, [address] [place] [address] Kaci Moya, [facility] 22 [facility], [address] [address] [email or web address] 01/11/2026 3:00 PM EDT Office Visit [facility] [place] Hematology Oncology Clinic at [address] [address] Serg Marinelli DO [address] [place] [address] [email or web address] documented as of this encounter Visit Diagnoses Not on filedocumented in this encounter Care Teams General Counselor Relationship Specialty Start Date End Date Joe Sands MD [address] [place] [address] PCP - General Internal Medicine 09/05/17 Serg Marinelli DO [address] [place] [address] ML@[email or web address]. [email or web address] Primary Oncologist Hematology and Oncology 08/12/22 Laurie Olivier CNP 30 [place] [address] [email or web address] Nurse Practitioner Medical Oncology 10/11/23 Stephanie García FNP 30 [place] [address] [email or web address] Registered Nurse Nurse Practitioner 06/01/24 documented as of this encounter Additional Source Comments The information contained in this document represents components of the legal health record. It is not the complete legal health record.[facility]
--- OUTSIDE RECORDS SUMMARY | 2025-06-20 12:59 | XMS_ITS | Encounter Summary ---
Author Organization [facility] Address [address] [facility] [address] [place] [address] Phone Care Team Providers Care Cook Specialty Foreign Food Name Role Phone Joe Sands MD Primary Care Provider [phone] Serg Marinelli DO Unavailable [phone] Laurie Olivier GLOBAL COMPENSATION DIRECTOR Unavailable Stephanie García MYSQL DBA Unavailable [phone] Encounter Details Date Type Department Care Team (Late st Contact Info) Description 09/05/2017 Procedure Pass [facility], Ct Scan - [address] [address] Social History Tobacco Use Types Packs/Day Years [...] Description 08/21/2025 1:00 PM EST Office Visit [facility] [address] [place] [address] 3rd Floor, [address] [place], [place] [phone] Kaci Moya, DENILSON [address] [facility], [address] [place], [place] [phone] 01/11/2026 3:00 PM EDT Office Visit [facility] at [place] [facility] [address] [place] [address] Serg Marinelli DO 30 [place] [address] [email or web address] documented as of this encounter Visit Diagnoses Not on filedocumented in this encounter Care Teams Cook Specialty Foreign Food Relationship Specialty Start Date End Date Joe Sands MD [address] [place] [address] PCP - General Internal Medicine 09/05/17 Serg Marinelli DO [address] [place] [address] [email or web address] CRIS Primary Oncologist Hematology and Oncology 08/12/22 Laurie Olivier CNP [address] [place] [address] [email or web address] Nurse Practitioner Medical Oncology 10/11/23 Stephanie García FNP [address] [place] [address] [email or web address] Registered Nurse Nurse Practitioner 06/01/24 documented as of this encounter Additional Source Comments The information contained in this document represents components of the legal health record. It is not the complete legal health record.[facility]
--- OUTSIDE RECORDS SUMMARY | 2025-06-20 12:59 | XMS_ITS | Encounter Summary ---
Author Organization [facility] Address [address] [facility] [address] [place] [address] Phone Care Team Providers Care Retirement Officer Name Role Phone Joe Sands MD Primary Care Provider Serg Marinelli DO Unavailable Laurie Olivier AUTOMATION MACHINE BUILDER Unavailable Stephanie García MATERIAL CONTROL ANALYST Unavailable [phone] Encounter Details Date Type Department Care Team (Late st Contact Info) Description 10/26/2022 Procedure Pass [facility] 30 [place] [address] Social History Tobacco Use Types Packs/Day Years [...] Encounters Date Type Department Care Team (Late Contact Info) Description 08/21/2025 1:00 PM EST Office Visit [facility] 22 [facility] 3rd Floor, [address] [place] [address] Kaci Moya, DENILSON [facility], [address] [place] [address] [email or web address] 01/11/2026 3:00 PM EDT Office Visit [facility] at [facility] 30 [place] [address] Serg Marinelli DO 30 [place] [address] ML@[email or web address] documented as of this encounter Visit Diagnoses Not on filedocumented in this encounter Care Teams Retirement Officer Relationship Specialty Start Date End Date Joe Sands MD [address] [place] [address] PCP - General Internal Medicine 09/05/17 Serg Marinelli DO [address] [place] [address] [email or web address]. [email or web address] Primary Oncologist Hematology and Oncology 08/12/22 Laurie Olivier CNP [address] [place] [address] [email or web address] Nurse Practitioner Medical Oncology 10/11/23 Stephanie García FNP [address] [place] [address] [email or web address] Registered Nurse Nurse Practitioner 06/01/24 documented as of this encounter Additional Source Comments The information contained in this document represents components of the legal health record. It is not the complete legal health record.[facility]
--- OUTSIDE RECORDS SUMMARY | 2025-06-20 12:59 | XMS_ITS | Encounter Summary ---
Author Organization [facility] Address [address] [facility] [address] [place] [address] Phone Care Team Providers Care Community Health Consultant Name Role Phone Joe Sands MD Primary Care Provider [phone] Serg Marinelli DO Unavailable [phone] Laurie Olivier SUPERVISOR FURNACE ROOM Unavailable Stephanie García SURGICAL INSTRUMENT MECHANIC Unavailable [phone] Encounter Details Date Type Department Care Team (Late st Contact Info) Description 06/08/2024 Procedure Pass [facility], Ct Scan - [address] [address] Social History Tobacco Use Types Packs/Day Years [...] Description 08/21/2025 1:00 PM EST Office Visit [facility] [address] [place] [address] 3rd Floor, [address] [place] [address] Kaci Moya, [address], [address] [address] alma [email or web address] 01/11/2026 3:00 PM EDT Office Visit [facility] [place] [facility]cology [facility] at [facility] 30 [place] [address] Serg Marinelli DO 30 [place] [address] ML@[email or web address] documented as of this encounter Visit Diagnoses Not on filedocumented in this encounter Care Teams Community Health Consultant Relationship Specialty Start Date End Date Joe Sands MD [address] [place] [address] PCP - General Internal Medicine 09/05/17 Serg Marinelli DO [address] [place] [address] ML@[email or web address] Primary Oncologist Hematology and Oncology 08/12/22 Laurie Olivier CNP 30 [place] [address] [email or web address] Nurse Practitioner Medical Oncology 10/11/23 Stephanie García FNP [address] [place] [address] [email or web address] Registered Nurse Nurse Practitioner 06/01/24 documented as of this encounter Additional Source Comments The information contained in this document represents components of the legal health record. It is not the complete legal health record.[facility]
--- OUTSIDE RECORDS SUMMARY | 2025-06-20 12:59 | XMS_ITS | Encounter Summary ---
Author Organization [facility] Address [address] [facility] [address] [place] [address] Phone Care Team Providers Care Quantitative Developer Name Role Phone Joe Sands MD Primary Care Provider Serg Marinelli DO Unavailable Laurie Olivier ADVANCED PRACTICE PSYCHIATRIC NURSE Unavailable Stephanei García DAMPER WORKER Unavailable [phone] Encounter Details Date Type Department Care Team (Late st Contact Info) Description 04/02/2023 Procedure Pass [facility] Endoscopy Admitting Dept Virtual Department [address] [place] [address] [phone] Social History Tobacco Use Types Packs/Day Years [...] Description 08/21/2025 1:00 PM EST Office Visit [facility] [address] [facility] 3rd Floor, [address] [place] [address] Kaci Moya, DENILSON 22 [facility], [address] [place] [address] [email or web address] 01/11/2026 3:00 PM EDT Office Visit [facility] [place] Hematology Oncology Clinic at [address] [address] Serg Marinelli DO [address] [place] [address] [email or web address] [email or web address] documented as of this encounter Visit Diagnoses Not on filedocumented in this encounter Care Teams Quantitative Developer Relationship Specialty Start Date End Date Joe Sands MD [address] [place] [address] PCP - General Internal Medicine 09/05/17 Serg Marinelli DO [address] [place] [address] [email or web address] CRIS Primary Oncologist Hematology and Oncology 08/12/22 Laurie Olivier CNP [address] [place] [address] [email or web address] Nurse Practitioner Medical Oncology 10/11/23 Stephanie aGrcía FNP [address] [place] [address] [email or web address] Registered Nurse Nurse Practitioner 06/01/24 documented as of this encounter Additional Source Comments The information contained in this document represents components of the legal health record. It is not the complete legal health record.[facility]
--- OUTSIDE RECORDS SUMMARY | 2025-06-20 12:59 | XMS_ITS | Encounter Summary ---
Author Organization [facility] Address [address] [facility] [address] [place] [address] Phone Care Team Providers Care Prorate Clerk Name Role Phone Joe Sands MD Primary Care Provider Serg Marinelli DO Unavailable [phone] Laurie Olivier LEATHER LACER Unavailable Stephanie García ASSEMBLER BICYCLE Unavailable [phone] Encounter Details Date Type Department Care Team (Late st Contact Info) Description 09/25/2022 Procedure Pass [facility], Ct Scan - [address] [address] Social History Tobacco Use Types Packs/Day Years [...] Description 08/21/2025 1:00 PM EST Office Visit [facility] [address] [place] [address] 3rd Floor, [address] [place], [place] [address] Kaci Moya, DENILSON 22 [facility], [address] [place], [place] 3841134 [phone] 01/11/2026 3:00 PM EDT Office Visit [facility] H[facility] On[facility] Clinic at [address] [place] [address] [place] [address] Serg Marinelli DO 30 [place] [address] [email or web address] documented as of this encounter Visit Diagnoses Not on filedocumented in this encounter Care Teams Prorate Clerk Relationship Specialty Start Date End Date Joe Sands MD [address] [place] [address] PCP - General Internal Medicine 09/05/17 Serg Marinelli DO [address] [place] [address] [email or web address] Primary Oncologist Hematology and Oncology 08/12/22 Laurie Olivier CNP [address] [place] [address] [email or web address] Nurse Practitioner Medical Oncology 10/11/23 Stephanie García FNP [address] [place] [address] [email or web address] Registered Nurse Nurse Practitioner 06/01/24 documented as of this encounter Additional Source Comments The information contained in this document represents components of the legal health record. It is not the complete legal health record.[facility]
--- OUTSIDE RECORDS SUMMARY | 2025-06-20 12:59 | XMS_ITS | Encounter Summary ---
Author Organization [facility] Address [address] [facility] [address] [place] [address] Phone Care Team Providers Care Director Of Pupil Personnel Program Name Role Phone Joe Sands MD Primary Care Provider Serg Marinelli DO Unavailable Laurie Olivier CLINICAL AUDIOLOGIST Unavailable Stephanie García ACO COORDINATOR Unavailable [phone] Encounter Details Date Type Department Care Team (Late st Contact Info) Description 05/07/2020 Procedure Pass [facility] Endoscopy Admitting Dept Virtual Department [address] [place] [address] [phone] Social History Tobacco Use Types Packs/Day Years [...] Description 08/21/2025 1:00 PM EST Office Visit [facility] [address] [place] [address] 3rd Floor, [address] [place], [place] [phone] Kaci Moya DNP [address] [facility], [address] [place], [place] [phone] 01/11/2026 3:00 PM EDT Office Visit [facility] Hematology Oncology Clinic at [address] [place] [address] [place] [address] Serg Marinelli DO 30 [place] [address] [email or web address] documented as of this encounter Visit Diagnoses Not on filedocumented in this encounter Care Teams Director Of Pupil Personnel Program Relationship Specialty Start Date End Date Joe Sands MD [address] [place] [address] PCP - General Internal Medicine 09/05/17 Serg Marinelli DO [address] [place] [address] [email or web address] Primary Oncologist Hematology and Oncology 08/12/22 Laurie Olivier CNP [address] [place] [address] [email or web address] Nurse Practitioner Medical Oncology 10/11/23 Stephanie García FNP [address] [place] [address] [email or web address] Registered Nurse Nurse Practitioner 06/01/24 documented as of this encounter Additional Source Comments The information contained in this document represents components of the legal health record. It is not the complete legal health record.[facility]
--- OUTSIDE RECORDS SUMMARY | 2025-06-20 12:59 | XMS_ITS | Clinical Summary ---
Author Organization [facility] Address [address] [facility] [address] [place] [address] Phone Care Team Providers Care Convention Planner Name Role Phone Joe Sands MD Primary Care Provider Serg Marinelli DO Unavailable Laurie Olivier OUTSIDE SOLAR SALES CONSULTANT Unavailable Stephanie García OCEAN FREIGHT MANAGER Unavailable [phone] Allergies Active Allergy Reactions Criticality Noted Date [...] Active ferrous sulfate 324 mg (65 mg match-e-be-nash-she-wish band iron) TbEC Take 324 mg by mouth [...] EDT): This to be managed at the [facility]. He tells me that his last A1c [...] cessation today in excess of 10 minutes. Immunizations Immunization Administration Dates Next Due COVID-19 [...] Description 08/21/2025 1:00 PM EST Office Visit [facility] [address] [facility] 3rd Floor, [address] [place] [address] Kaci Moya, DENILSON 22 [facility], [address] [place] [address] 01/11/2026 3:00 PM EDT Office Visit [facility] [place] Hematology Oncology Clinic at [facility] 30 [place] [address] Serg Marinelli DO 30 [place] [address] [email or web address] [email or web address] Health Maintenance Due Date Last [...] Additional history exists POTASSIUM LEVEL 12/12/2025 12/12/2024, 1202/2024, 09/22/2023, Additional history exists PNEUMOCOCCAL VACCINES (50+ [...] this topic Medical Devices Implanted Type Area Supervisor Heavy Equipment Device Identifier Shelf Expiration Date Model / Serial / Lot Clip Hemostasis 360deg 235cm Resolution 360 Latex Free 2.8mm Channel Bx/20ea - [id number] Implanted:Qty: 2 on 05/07/2020 by Ron Harvey MD at [facility] N/A: Ascending Colon [employer] [id number] 02/19/2023 [id number] / / [id number] Description:POST POLYP CLOSU RE RIGHT COLON Procedures [...] EDT) SODIUM 140 133 - 146 mmol/L [facility] POTASSIUM 4.1 3.3 - 5.1 mmol/L [facility] CHLORIDE 105 96 - 108 mmol/L [facility] CO2 22 21 - 35 mmol/L [facility] BUN 15 6 - 19 mg/dL [facility] CREATININE 1.30 0.5 - 1.5 mg/dL [facility] GLUCOSE 95 70 - 99 mg/dL [facility] ALBUMIN 4.2 3.9 - 4.8 g/dL [facility] TOTAL PROTEIN 7.1 6.5 - 8.0 g/dL [facility] CALCIUM 9.7 8.4 - 10.3 mg/dL [facility] ALKALINE PHOSPHATASE 90 39 - 117 U/L [facility] TOTAL BILIRUBIN 0.3 0.0 - 1.2 mg/dL [facility] AST 19 0 - 37 U/L [facility] ALT 14 0 - 40 U/L [facility] GLOBULIN 2.9 1 - 4.8 g/dL [facility] EGFR 61 >59 mL/min/1.7 3m2 [facility] Comment:Estimated glomerular filtration rate calculated using the CKD-EPI refit equation. ANION GAP 17 10 - 20 mmol/L [facility] Blood 12/12/2024 3:22 PM EDT 12/12/2024 3:25 PM EDT us Serg Marinelli DO LAB BLOOD BKR ORDERABLES Fi nal Result [facility] [address] [place] [address] * ENDOSCOPY, COLON (10/08/2023 12:15 PM EDT) Narrative Transcriptions Ron Harvey MD - 10/08/2023 12:15 PM EDT [facility] Patient Name: Jose Miguel Jaime MD:: RON HARVEY MD, Procedure Date: 10/08/2023 12:15 PM Date of : 1960 Age: 63 Admit Type: Outpatient Gender: Male Room: [facility] Referring MD: Porter Buenrostro Exam Type: Colonoscopy [...] monitored continuously. The Olympus adult variable colonoscope [id number] #6 was introduced through the anus and [...] 12:15 PM Procedure Code(s): --- Professional --- 97316, Colonoscopy, flexible; with removal of tumor(s), polyp(s), or other lesion(s) by snare technique --- Technical --- 59804, Colonoscopy, flexible; with removal of tumor(s), polyp(s), [...] or abscess without bleeding CPT copyright 2021 [employer]. All rights reserved. The codes documented in this report are preliminary and upon die designer reviewmay be revised to meet current compliance requirements. Procedure Date: 10/08/2023 12:15:31 PM 30 [place] [address] Porter Buenrostro MD GI PROCEDURE ORDE SHARON [...] further evaluation. Preliminary report was provided by [facility] on January 22, 2019 at 4:59 AM [...] Recently Relevant to Health Maintenance Insurance Dr Barbara [place], [place] [address] MEDICARE PART A & B [facility] MEDICARE PART A & B [facility] MEDIC[facility] PART A & [facility] [place] [address] MEDICARE PART A & [facility] PART A & B [facility] PART A & [facility] [place] [address] MEDICARE PART A & B [facility] MEDICARE PART A & B [facility] MEDICARE PART A & B [facility] SAFETY INSURANCE MEDICARE PART A & B Care Teams Convention Planner Relationship Specialty Start Date End Date Joe Sands MD [address] [place] [address] PCP - General Internal Medicine 09/05/17 Serg Marinelli DO 30 [place] [address] [email or web address] [email or web address] CRIS Primary Oncologist Hematology and Oncology 08/12/22 Laurie Olivier CNP 30 [place] [address] [email or web address] Nurse Practitioner Medical Oncology 10/11/23 Stephanie García FNP 30 [place] [address] [email or web address] Registered Nurse Nurse Practitioner 06/01/24 Additional Source Comments The information contained in this document represents components of the legal health record. It is not the complete legal health record.[facility]
--- OUTSIDE RECORDS SUMMARY | 2025-06-20 12:59 | XMS_ITS | Encounter Summary ---
Author Organization [facility] Address [address] [facility] [address] [place] [address] Phone Care Team Providers Care Motion Picture Scene Builder Name Role Phone Joe Sands MD Primary Care Provider Serg Marinelli DO Unavailable Laurie Olivier OFFICE SERVICES COORDINATOR Unavailable Stephanie García GAS LINE REPAIRER Unavailable [phone] Encounter Details Date Type Department Care Team (Late st Contact Info) Description 12/12/2019 Procedure Pass [address] [place] [address] Social History Tobacco Use Types Packs/Day Years [...] Description 08/21/2025 1:00 PM EST Office Visit [facility] [address] [place] [address] 3rd Floor, [address] [place] [address] Kaci Moya, DENILSON 22 [facility], [address] [place] [address] [email or web address] 01/11/2026 3:00 PM EDT Office Visit [facility] Hematology Oncology Clinic at [place] [address] [place] [address] Serg Marinelli DO 30 [place] [address] [email or web address] documented as of this encounter Visit Diagnoses Not on filedocumented in this encounter Care Teams Motion Picture Scene Builder Relationship Specialty Start Date End Date Joe Sands MD [address] [place] [address] PCP - General Internal Medicine 09/05/17 Serg Marinelli DO [address] [place] [address] [email or web address] Primary Oncologist Hematology and Oncology 08/12/22 Laurie Olivier CNP [address] [place] [address] [email or web address] Nurse Practitioner Medical Oncology 10/11/23 Stephanie García FNP [address] [place] [address] [email or web address] Registered Nurse Nurse Practitioner 06/01/24 documented as of this encounter Additional Source Comments The information contained in this document represents components of the legal health record. It is not the complete legal health record.[facility]
--- OUTSIDE RECORDS SUMMARY | 2025-06-20 12:59 | XMS_ITS | Encounter Summary ---
Author Organization [facility] Address [address] [facility] [address] [place] [address] Phone Care Team Providers Care Gas Desulfurizer Name Role Phone Joe Sands MD Primary Care Provider Serg Marinelli DO Unavailable [phone] Laurie Olivier STATE GAME WARDEN Unavailable Stephanie García FORESTRY CREW CHIEF Unavailable [phone] Encounter Details Date Type Department Care Team (Late st Contact Info) Description 11/09/2022 Procedure Pass [facility] Endoscopy Admitting Dept Virtual Department [address] [place] [address] [phone] Social History Tobacco Use Types Packs/Day Years [...] Description 08/21/2025 1:00 PM EST Office Visit [facility] [address] [facility] 3rd Floor, [address] [place] [address] Kaci Moya, DENILSON 22 [facility], [address] [place] [address] [email or web address] 01/11/2026 3:00 PM EDT Office Visit [facility] [place] Hematology Oncology Clinic at [address] [address] Serg Marinelli DO [address] [place] [address] [email or web address] documented as of this encounter Visit Diagnoses Not on filedocumented in this encounter Care Teams Gas Desulfurizer Relationship Specialty Start Date End Date Joe Sands MD [address] [place] [address] PCP - General Internal Medicine 09/05/17 Serg Marinelli DO [address] [place] [phone] [email or web address] Primary Oncologist Hematology and Oncology 08/12/22 Laurie Olivier CNP [address] [place] [address] [email or web address] Nurse Practitioner Medical Oncology 10/11/23 Stephanie García FNP [address] [place] [address] [email or web address] Registered Nurse Nurse Practitioner 06/01/24 documented as of this encounter Additional Source Comments The information contained in this document represents components of the legal health record. It is not the complete legal health record.[facility]
--- OUTSIDE RECORDS SUMMARY | 2025-06-20 12:59 | XMS_ITS | Encounter Summary ---
Author Organization [facility] Address [address] [facility] [address] [place] [address] Phone Care Team Providers Care Moisture Tester Name Role Phone Joe Sands MD Primary Care Provider Serg Marinelli DO Unavailable Laurie Olivier CLASSIFIER OPERATOR Unavailable Stephanie García SPECIAL EDUCATION ASSISTANT Unavailable [phone] Encounter Details Date Type Department Care Team (Late st Contact Info) Description 04/14/2023 Procedure Pass [facility], Ct Scan - [address] [address] Social History Tobacco Use Types Packs/Day Years [...] Description 08/21/2025 1:00 PM EST Office Visit [facility] [address] [facility] 3rd Floor, [address] [place] [address] Kaci Moya, DENILSON 22 [facility], [address] [place] [address] [email or web address] 01/11/2026 3:00 PM EDT Office Visit [facility] [place] Hematology Oncology Clinic at [address] [address] Serg Marinelli DO 30 [place] [address] [email or web address] documented as of this encounter Visit Diagnoses Not on filedocumented in this encounter Care Teams Moisture Tester Relationship Specialty Start Date End Date Joe Sands MD [address] [place] [address] PCP - General Internal Medicine 09/05/17 Serg Marinelli DO [address] [place] [address] [email or web address] Primary Oncologist Hematology and Oncology 08/12/22 Laurie Olivier CNP [address] [place] [address] [email or web address] Nurse Practitioner Medical Oncology 10/11/23 Stephanie García FNP [address] [place] [address] Registered Nurse Nurse Practitioner 06/01/24 documented as of this encounter Additional Source Comments The information contained in this document represents components of the legal health record. It is not the complete legal health record.[facility]
--- OUTSIDE RECORDS SUMMARY | 2025-06-20 12:59 | XMS_ITS | Encounter Summary ---
Author Organization [facility] Address [address] [place] [address] Phone Care Team Providers Care Potato Pancake Frier Name Role Phone Joe Sands MD Primary Care Provider Serg Marinelli DO Unavailable [phone] Laurie Olivier MANAGING PARTNER Unavailable Stephanie García SMART ENERGY SPECIALIST Unavailable [phone] Encounter Details Date Type Department Care Team (Late st Contact Info) Description 09/05/2017 Procedure Pass [facility], Ct Scan - [address] [address] Social History Tobacco Use Types Packs/Day Years [...] Description 08/21/2025 1:00 PM EST Office Visit [facility] [address] [place] [address] 3rd Floor, [address] [place], [place] [phone] Kaci Moya, DENILSON 22 [facility], [address] [place], [place] [phone] 01/11/2026 3:00 PM EDT Office Visit [facility] Hematology Oncology Clinic at [place] [address] [place] [address] Serg Marinelli DO 30 [place] [address] [email or web address] documented as of this encounter Visit Diagnoses Not on filedocumented in this encounter Care Teams Potato Pancake Frier Relationship Specialty Start Date End Date Joe Sands MD [address] [place] [address] PCP - General Internal Medicine 09/05/17 Serg Marinelli DO [address] [place] [address] [email or web address] Primary Oncologist Hematology and Oncology 08/12/22 Laurie Olivier CNP [address] [place] [address] [email or web address] Nurse Practitioner Medical Oncology 10/11/23 Stephanie García FNP [address] [place] [address] [email or web address] Registered Nurse Nurse Practitioner 06/01/24 documented as of this encounter Additional Source Comments The information contained in this document represents components of the legal health record. It is not the complete legal health record.[facility]
--- OUTSIDE RECORDS SUMMARY | 2025-06-20 12:59 | XMS_ITS | Encounter Summary ---
Author Organization [facility] Address [address] [place] [address] Phone Care Team Providers Care Endoscopy Support Specialist Name Role Phone Joe Sands MD Primary Care Provider Serg Marinelli DO Unavailable [phone] Laurie Olivier QUILLER TENDER Unavailable Stephanie García MARKET BASKET MAKER Unavailable [phone] Encounter Details Date Type Department Care Team (Late st Contact Info) Description 07/07/2022 Procedure Pass [facility] Endoscopy Admitting Dept Virtual Department [address] [place] [address] [phone] Social History Tobacco Use Types Packs/Day Years [...] Description 08/21/2025 1:00 PM EST Office Visit [facility] [address] [place] [address] 3rd Floor, [address] [place], [place] [phone] Kaci Moya, DENILSON 22 [facility], [address] [place], [place] [address] 01/11/2026 3:00 PM EDT Office Visit [facility] Hematology Oncology Clinic at [place] [address] [place] [address] Serg Marinelli DO 30 [place] [address] [email or web address] documented as of this encounter Visit Diagnoses Not on filedocumented in this encounter Care Teams Endoscopy Support Specialist Relationship Specialty Start Date End Date Joe Sands MD [address] [place] [address] PCP - General Internal Medicine 09/05/17 Serg Marinelli DO [address] [place] [address] [email or web address] Primary Oncologist Hematology and Oncology 08/12/22 Laurie Olivier CNP [address] [place] [address] [email or web address] Nurse Practitioner Medical Oncology 10/11/23 Stephanie García FNP [address] [place] [address] [email or web address] Registered Nurse Nurse Practitioner 06/01/24 documented as of this encounter Additional Source Comments The information contained in this document represents components of the legal health record. It is not the complete legal health record.[facility]
== END 2025-06-20 12:57 | disposition home or self-care (01) ==
LOC: HO.HOS 11:20
PROVIDERS: PCP Internal Medicine; Visit Provider Orthopaedic Surgery
DX: M24.541 Contracture, right hand (principal); M25.641 Stiffness of right hand, not elsewhere classified
CPT/HCPCS: 99214

== ENCOUNTER → 2025-06-20 11:20 | Outpatient (BNVA) | payer MEDICARE, MEDICAID, SELFPAY | PROVIDERS: PCP Internal Medicine; Visit Provider Orthopaedic Surgery | DX: M24.541 Contracture, right hand (principal); M25.541 Pain in joints of right hand; M79.644 Pain in right finger(s); F17.210 Nicotine dependence, cigarettes, uncomplicated | CPT/HCPCS: 99212 ==